=== PATIENT | male | born 1985 | race Caucasian/White ===

== ENCOUNTER 2019-02-15 01:03 | Emergency (ER) | payer OTHER, SELFPAY ==
[2018-03-21 10:16] VITALS: BMI 28.1
[2019-02-15 01:04] VITALS: BP 102/67; PULSE 106; RESP 18; TEMP 36.5; O2SAT 100; BMI 30.5
--- NOTE | 2019-02-15 01:07 | ED.DCSUM_ITS ---
History of Present Illness Chief Complaint: Nausea/Vomiting Informant: Patient, Significant Other - Abdominal Pain/Flank Pain Onset: Today Context: Sudden Onset Timing: Continuous Quality: Cramping Location: Diffuse - Nausea/Vomiting/Emesis GI Symptom: Nausea, Vomiting Onset: Today Quality: Nonbilious. Negative for: Blood streaks, Coffee ground, Hematemesis - Diarrhea/Melena/Hematochezia GI Symptom: Diarrhea Onset: Today Stool Quality: Negative for: Black, Maroon, ILDA per rectum Narrative: Patient is a 34-year-old male with no significant past medical history presenting with vomiting and diarrhea. Patient as well as his , children and [id number] all came down with GI symptoms tonight. They all had cheeseburger soup earlier this evening. Patient seemed to have the most severe symptoms. Has had multiple episodes of vomiting. He denies any blood in his vomit. He has had associated diarrhea. Patient states he has cramping abdominal pain before he vomits but denies any other pain. He currently denies any abdominal pain. States he feels very weak. 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 Patient not take anything for symptoms prior to arrival. He denies any other complaints at this time. He states he was feeling well earlier today. Past Medical History - Allergies and Home Meds Allergies/Adverse Reactions: Allergies No Known Allergies Allergy (Unverified 02/15/19 01:13) Primary Care Physician: Carmelo Cazares DO [Primary Care Provider] - Past Medical History: None Surgical History: no surgical history Lives: Spouse/ Significant Other, With Family Smoking Status: Never smoker Alcohol: None Drugs: None Review of Systems General: Denies: Chills, Fever, Sweats Eyes: Denies: Visual changes - bilaterally, Diplopia ENT: Denies: Rhinorrhea, Sore throat Cardiovascular: Denies: Chest pain, Palpitations Respiratory: Denies: Dyspnea, Cough, Dyspnea on exertion Gastrointestinal: Reports: Abdominal pain, Nausea, Vomiting, Diarrhea. Denies: Melena, Hematochezia Genitourinary: Denies: Dysuria, Hematuria, Frequency Musculoskeletal: Denies: Back pain, Extremity Pain Skin: Denies: Rash, Wounds Neurological: Denies: Headache, Weakness, Numbness Physical Exam Vital Signs/Narrative: Vital Signs Temp Pulse Resp BP Pulse Ox 02/15/19 01:04 97.7 F L 106 H 18 102/67 100 Inital Vital Signs reviewed: Yes General: Well nourished, Well developed, No Acute Distress Head: Normocephalic, Atraumatic Eyes: Perrl, EOMI ENT: Moist mucous membranes, No rhinorrhea Neck: Supple, Nontender Cardiovascular: Regular rate, Regular rhythm, No murmurs Respiratory: No distress, CTA bilaterally, Chest nontender Abdomen: Soft, Nontender, Nondistended, Normal bowel sounds. Negative for: Guarding, Rebound tenderness Back: Nontender, Normal Inspection Extremities: Nontender, No edema Skin: Normal color, No rash Neurological: Alert, Oriented x3, Cranial nerves II-XII grossly intact, Normal Strength, Normal Sensation Psychological: Normal affect, Normal Mood Diagnostic/Tx/Re-eval Laboratory Data 02/15/19 02/15/19 01:05 01:05 WBC 22.6 H RBC 5.61 Hgb 16.7 H Hct 48.7 MCV 86.8 MCH 29.8 MCHC 34.3 RDW Std Deviation 38.0 RDW Coeff of Luis 11.9 Plt Count 290 MPV 8.7 Immature Gran % (Auto) 0.500 Neut % (Auto) 88.9 H Lymph % (Auto) 4.2 L [place] % (Auto) 5.9 Eos % (Auto) 0.1 Baso % (Auto) 0.4 Absolute Neuts (auto) 20.1 H Absolute Lymphs (auto) 0.94 Nucleated RBC % 0 Sodium 138 Potassium 4.2 Chloride 104 Carbon Dioxide 25.0 Anion Gap 9 BUN 21 H Creatinine 1.87 H Estim Creat Clear Calc 70.60 Est GFR (MDRD) Af Amer 53 L Est GFR (MDRD) Non-Af 44 L BUN/Creatinine Ratio 11.2 Glucose 162 H Calcium 10.3 H Total Bilirubin 0.40 AST 17 ALT 43 Alkaline Phosphatase 54 Total Protein 9.0 H Albumin 5.2 H Globulin 3.8 Albumin/Globulin Ratio 1.4 Lipase 127 - Medical Decision Making Patient evaluated for sudden onset of nausea, vomiting and diarrhea. His symptoms started as well as multiple family members. I suspect this may be food poisoning. Did check basic labs including CBC, CMP and lipase. Patient is treated symptomatically with IV fluids, Zofran and Pepcid. On reevaluation patient is feeling much better. Lab work is remarkable for leukocytosis as well as an elevated creatinine. Patient is given a second liter of fluids. I suspect this is all reactive from his acute dehydration and vomiting. Patient is counseled on this findings and need for follow-up. He is instructed to follow-up with his PCP next week for repeat BMP. Patient be discharged home with a course of Zofran. Patient is counseled on signs and symptoms requiring return to the emergency room. Patient verbalizes agreement and understand this plan. Patient discharged home in stable and improved condition. ED Disposition - Plan for ED Patient: Disposition: Home or Assisted Living Diagnosis: Nausea vomiting and diarrhea, Acute dehydration Instructions: FOOD POISONING or GASTROENTERITIS (6y-Adult) Prescriptions: Ondansetron [Zofran Odt] 4 mg PO Q8H PRN PRN #15 tab PRN Reason: Nausea Prescription Printed Referrals: Carmelo Cazares DO [Primary Care Provider] - Additional Instructions: I suspect you have food poisoning which caused her symptoms today. Your lab work did show an elevated white blood cell count as well as an elevated creatinine. I suspect this is all secondary to your vomiting and likely food poisoning. Please follow-up with your doctor next week for repeat blood work and to make sure the levels have normalized. Return to the emergency room if you have any worsening symptoms.
[2019-02-15 01:12] LABS: Absolute Lymphocyte Count 0.94 X10^3/uL (0.83-4.51); Absolute Neutrophil Count 20.1 X10^3/uL (2.0-7.7); Basophil% 0.4 % (0-1); Eosinophil# 0.02 X10^3/uL; Eosinophils% 0.1 % (0-5); Hematocrit 48.7 % (40-54); Hemoglobin 16.7 g/dL (13.0-16.5); Lymphocyte # 0.94 X10^3/ul (4.0); Lymphocyte % 4.2 % (19-41); Mean Corp Hgb Conc 34.3 g/dL (32-36); Mean Corpuscular Hgb 29.8 pg (27.0-32.0); Mean Corpuscular Volume 86.8 fL (80-94); Mean Platelet Vol. 8.7 fl (6.2-12.0); Monocyte# 1.33 X10^3/uL; Monocyte% 5.9 % (0-10); NRBC Flagged by Analyzer 0 % (0-5); Neutrophil # 20.12 X10^3/uL (2.7-7.7); Neutrophil % 88.9 % (47-70); POSITIVE DIFFERENTIAL YES; Platelet Count 290 K/mm3 (150-450); RBC Distribution Width CV 11.9 % (11.6-14.6); Red Blood Count 5.61 M/mm3 (4.6-6.2); White Blood Count 22.6 K/mm3 (4.4-11.0)
[2019-02-15 01:13] LABS: Differential Indicated SCAN CRITERIA MET
[2019-02-15] MEDS: 0.9% Normal Saline 1,000 ML 1000 ML IV (01:14)
[2019-02-15] MEDS: Famotidine 200 MG/20 ML MDV 20 MG in 0.9% Normal Saline (Pres. free 8 ML 300 MG IV (01:14)
[2019-02-15] MEDS: Ondansetron 4 MG/2 ML Vial IV (01:16)
[2019-02-15 01:32] LABS: ALB/GLOB Ratio 1.4 RATIO (0.9-2.4); AST(SGOT) 17 U/L (15-37); Alanine Aminotransfer ALT/SGPT 43 U/L (16-61); Albumin, Serum 5.2 g/dL (3.2-5.0); Alkaline Phosphatase 54 U/L (45-117); Anion Gap 9 (5-15); BUN 21 mg/dL (7-18); BUN/Creat Ratio 11.2 RATIO (10-20); Calcium,Total 10.3 mg/dL (8.5-10.1); Chloride 104 mmol/L (98-107); Creatinine, Serum 1.87 mg/dL (0.70-1.30); EST Glomerular Filtration Rate 44 mL/min (>60); Est Glom Filt Rate - Afr Amer 53 mL/min (>60); Globulin 3.8 g/dL (2.2-4.2); Glucose 162 mg/dL (74-106); Lipase 127 U/L (73-393); Potassium 4.2 mmol/L (3.5-5.1); Sodium Level 138 mmol/L (136-145)
[2019-02-15] MEDS: 0.9% Normal Saline 1,000 ML 999 ML IV (02:31)
[2019-02-15 02:34] VITALS: BP 117/64; PULSE 94; RESP 16; O2SAT 96
[2019-02-15 04:32] VITALS: BP 108/72; PULSE 91; RESP 18; O2SAT 99
== END 2019-02-15 04:33 | disposition home or self-care (01) ==
PROVIDERS: Emergency Provider Emergency Medicine; Family Provider Family Medicine; PCP Family Medicine
DX: R11.2 Nausea with vomiting, unspecified (principal); E86.0 Dehydration; R19.7 Diarrhea, unspecified
CPT/HCPCS: 80053; 83690; 85025; 96361; 96374; 99285; J7030; A4216; J2405; J3490

== ENCOUNTER → 2019-03-13 16:55 | Outpatient (CLI) | payer OTHER, SELFPAY ==
[2019-02-15 01:04] VITALS: BMI 30.5
[2019-03-13 17:53] LABS: Absolute Neutrophil Count 4.7 X10^3/uL (2.0-7.7); Basophil# 0.04 X10^3/uL; Basophil% 0.5 % (0-1); Eosinophils% 1.2 % (0-5); Hemoglobin 14.7 g/dL (13.0-16.5); Lymphocyte % 33.8 % (19-41); Mean Corp Hgb Conc 32.7 g/dL (32-36); Mean Corpuscular Hgb 29.3 pg (27.0-32.0); Mean Corpuscular Volume 89.6 fL (80-94); Mean Platelet Vol. 9.2 fl (6.2-12.0); Monocyte# 0.65 X10^3/uL; Monocyte% 7.9 % (0-10); NRBC Flagged by Analyzer 0 % (0-5); Neutrophil # 4.66 X10^3/uL (2.7-7.7); Neutrophil % 56.2 % (47-70); Platelet Count 300 K/mm3 (150-450); RBC Distribution Width SD 39.2 fl (35.1-43.9); Red Blood Count 5.02 M/mm3 (4.6-6.2); White Blood Count 8.3 K/mm3 (4.4-11.0)
[2019-03-13 18:59] LABS: ALB/GLOB Ratio 1.3 RATIO (0.9-2.4); AST(SGOT) 16 U/L (15-37); Alanine Aminotransfer ALT/SGPT 36 U/L (16-61); Albumin, Serum 4.4 g/dL (3.2-5.0); Alkaline Phosphatase 42 U/L (45-117); Anion Gap 5 (5-15); BUN 10 mg/dL (7-18); BUN/Creat Ratio 10.5 RATIO (10-20); Calcium,Total 9.3 mg/dL (8.5-10.1); Chloride 106 mmol/L (98-107); Creatinine, Serum 0.95 mg/dL (0.70-1.30); EST Glomerular Filtration Rate 95 mL/min (>60); Est Glom Filt Rate - Afr Amer 115 mL/min (>60); Globulin 3.4 g/dL (2.2-4.2); Glucose 82 mg/dL (74-106); Potassium 3.7 mmol/L (3.5-5.1); Protein, Total 7.8 g/dL (6.4-8.2); Sodium Level 140 mmol/L (136-145)
== END ==
PROVIDERS: Family Provider Family Medicine; PCP Family Medicine; Visit Provider Family Medicine
DX: N17.9 Acute kidney failure, unspecified (principal); D72.829 Elevated white blood cell count, unspecified
CPT/HCPCS: 36415; 80053; 85025

== ENCOUNTER → 2020-01-22 17:25 | Outpatient (CLI) | payer OTHER, SELFPAY | PROVIDERS: PCP Family Medicine; Referring Provider Family Medicine; Visit Provider Family Medicine | DX: Z20.828 Contact with and (suspected) exposure to other viral communicable diseases (principal) | CPT/HCPCS: 87635; C9803; U0003 ==

== ENCOUNTER → 2023-02-15 | Outpatient (CLI) | payer OTHER, SELFPAY ==
[2023-02-15 15:14] LABS: Absolute Lymphocyte Count 2.15 X10^3/uL (0.83-4.51); Absolute Neutrophil Count 5.4 X10^3/uL (2.0-7.7); Basophil# 0.05 X10^3/uL; Basophil% 0.6 % (0-1); Eosinophil# 0.07 X10^3/uL; Eosinophils% 0.8 % (0-5); Hematocrit 45.2 % (40-54); Hemoglobin 14.9 g/dL (13.0-16.5); Lymphocyte # 2.15 X10^3/ul (0.83-4.51); Lymphocyte % 25.7 % (19-41); Mean Corpuscular Hgb 29.4 pg (27.0-32.0); Mean Corpuscular Volume 89.2 fL (80-94); Mean Platelet Vol. 9.6 fl (6.2-12.0); Monocyte# 0.66 X10^3/uL; Monocyte% 7.9 % (0-10); NRBC Flagged by Analyzer 0 % (0-5); Neutrophil % 64.6 % (47-70); Platelet Count 321 K/mm3 (150-450); RBC Distribution Width CV 12.2 % (11.6-14.6); RBC Distribution Width SD 39.5 fl (35.1-43.9); Red Blood Count 5.07 M/mm3 (4.6-6.2); White Blood Count 8.4 K/mm3 (4.4-11.0)
[2023-02-15 15:53] LABS: ALB/GLOB Ratio 1.1 RATIO (0.9-2.4); AST(SGOT) 19 U/L (15-37); Alanine Aminotransfer ALT/SGPT 43 U/L (16-61); Alkaline Phosphatase 48 U/L (45-117); Anion Gap 6 (5-15); BUN 19 mg/dL (7-18); Chloride 108 mmol/L (98-107); Cholesterol 202 mg/dL (200); Creatinine, Serum 1.12 mg/dL (0.70-1.30); EST Glomerular Filtration Rate 77 mL/min (>60); Est Glom Filt Rate - Afr Amer 93 mL/min (>60); Globulin 3.5 g/dL (2.2-4.2); Glucose 106 mg/dL (74-106); High Density Lipoprotein 31 mg/dL; Potassium 4.8 mmol/L (3.5-5.1); Protein, Total 7.5 g/dL (6.4-8.2); Sodium Level 143 mmol/L (136-145); Triglycerides 559 mg/dL
== END | disposition home or self-care (01) ==
LOC: BFHLAB 13:38
PROVIDERS: PCP Family Medicine; Visit Provider Family Medicine
DX: Z00.00 Encounter for general adult medical examination without abnormal findings (principal)
CPT/HCPCS: 36415; 80053; 80061; 85025

== ENCOUNTER 2023-08-06 10:11 | Emergency (ER) | payer OTHER, SELFPAY ==
[2023-08-06 10:12] VITALS: BP 129/91; PULSE 99; RESP 18; TEMP 36.4; O2SAT 98; BMI 29.7
--- NOTE | 2023-08-06 11:42 | EDS_ITS ---
HPI <GIL Yeung - Last Filed: 08/06/23 15:15> History of Present Illness Chief Complaint: Other, Pain/Inj PFSH <GIL Yeung - Last Filed: 08/06/23 15:15> PFSH Medical History No active medical problems Home Medications ?Medication ?Instructions ?Recorded ?Last Taken ?Type NK 08/06/23 Unknown History ciprofloxacin HCl 500 mg tablet 500 mg PO BID #14 TABLETS 08/06/23 Unknown Rx metronidazole 500 mg tablet 500 mg PO BID 7 days #14 tabs 08/06/23 Unknown Rx oxycodone-acetaminophen 5 mg-325 1 tab PO Q8H PRN pain 3 days #10 08/06/23 Unknown Rx mg tablet (Percocet) tabs Allergy/AdvReac Type Severity Reaction Status Date / Time No Known Allergies Allergy Verified 07/01/23 08:11 Family History Father Heart disease Diabetes Hypertension Surgical History No significant past surgical history Social History Smoking Status: Never smoker alcohol intake: never substance use type: does not use ROS <GIL Yeung - Last Filed: 08/06/23 15:15> ROS ED Constitutional Constitutional ED: Denies chills or fever(s) Cardiovascular Cardiovascular: Denies chest pain Respiratory/Chest Respiratory/Chest: Denies dyspnea Gastrointestinal Gastrointestinal: Reports other Details: rectal pain ; Denies abdominal pain, constipation, diarrhea, melena, nausea or vomiting Genitourinary Genitourinary ED: Denies dysuria Integumentary Denies rash Neurologic Neurologic: Denies weakness EXAM <GIL Yeung - Last Filed: 08/06/23 15:15> Physical Exam Const Vital Signs: 08/06/23 10:12 08/06/23 14:57 Temperature 97.6 F L 98.5 F Temperature Source Temporal Pulse Rate 99 90 Respiratory Rate 18 18 Blood Pressure 129/91 H 131/76 H Blood Pressure Mean 103 94 Pulse Ox 98 94 Oxygen Delivery Method Room Air Positive well nourished, well developed and no apparent distress General Appearance ED: well developed HEENT Reports normocephalic and head/scalp atraumatic Mouth ED: Yes moist mucous membranes normal Eyes PERRL and EOMs intact bilaterally Neck full ROM and supple Chest Wall inspection of chest normal Resp normal respiratory effort and clear to auscultation bilaterally Cardio regular rate and regular rhythm GI soft to palpation, non-tender, non-distended and no masses GI Narrative: On STEPHANIE, there is what feels like a tender internal hemorrhoid at the 7 o'clock position, no external hemorrhoids, no signs of anal fissures Rectal Exam: normal sphincter tone Back/Spine normal ROM and normal to inspection Extremity normal to inspection and full ROM Neuro oriented x3, CN's II-XII intact bilaterally, moves all extremities, no focal motor deficits and no sensory deficits noted Sensorium / Orientation: awake and alert Psych mental status grossly normal and thought process normal Skin no rashes or lesions noted and no wounds <Dr. Jose Alfredo Badillo DO - Last Filed: 08/06/23 14:29> Physical Exam Const Vital Signs: 08/06/23 10:12 08/06/23 14:57 Temperature 97.6 F L 98.5 F Temperature Source Temporal Pulse Rate 99 90 Respiratory Rate 18 18 Blood Pressure 129/91 H 131/76 H Blood Pressure Mean 103 94 Pulse Ox 98 94 Oxygen Delivery Method Room Air MDM <GIL Yeung - Last Filed: 08/06/23 15:15> [facility] Narrative Medical decision making narrative: Patient presenting today with rectal pain he has had over the past week. He is nontoxic-appearing but does appear uncomfortable. Patient given IV morphine and Zofran for pain control. On rectal exam, no sign of external hemorrhoids or anal fissures, I do feel what feels like a internal hemorrhoid at the 7 o'clock position on STEPHANIE. CT of the pelvis with IV contrast obtained as well as labs. He does have a WBC of 15. CT scan and does show a perirectal abscess. I did consult Dr. Cortez, he did perform an I&D here in the ED. Patient given IV Zosyn and will be discharged home on ciprofloxacin and Flagyl. I will also given a prescription for Percocet. He is to change the packing daily. He has a follow-up with Dr. Cortez next Tuesday and will be discharged home in stable condition. He is comfortable with plan. Lab Data Attestation: I reviewed the patient's lab results. Lab results narrative: WBC 15 Labs: Laboratory Results - last 24 hr 08/06/23 12:05 WBC 15.0 H RBC 4.69 Hgb 13.6 Hct 41.9 MCV 89.3 MCH 29.0 MCHC 32.5 RDW Std Deviation 39.4 RDW Coeff of Luis 12.1 Plt Count 347 MPV 8.3 Immature Gran % (Auto) 0.400 Neut % (Auto) 74.4 H Lymph % (Auto) 16.4 L [place] % (Auto) 7.8 Eos % (Auto) 0.7 Baso % (Auto) 0.3 Absolute Neuts (auto) 11.2 H Absolute Lymphs (auto) 2.47 Nucleated RBC % 0 Sodium 139 Potassium 3.9 Chloride 107 Carbon Dioxide 29.0 Anion Gap 3 L BUN 14 Creatinine 1.05 Estim Creat Clear Calc 137.58 Est GFR (MDRD) Af Amer 100 Est GFR (MDRD) Non-Af 83 BUN/Creatinine Ratio 13.3 Glucose 99 Calcium 9.3 Radiography Diagnostic Testing: Clinical Impression(s) from Imaging Studies Pelvis CT 08/06/23 11:51 IMPRESSION: There are low-density fluid collections in the posterior perirectal region consistent with abscesses I cannot determine with any certainty if there is one interconnecting abscess or multiple. These could be more accurately evaluated with ultrasound and could be aspirated under sonographic guidance. There is no induration of the perirectal fat, no perirectal lymph nodes are noted. Small large bowel loops are unremarkable, normal appendix visualized No free pelvic fluid or air Electronically Signed: Wilber Baig MD at 13:07 EDT , <Dr. Jose Alfredo Badillo, DO - Last Filed: 08/06/23 14:29> [facility] Lab Data Labs: Laboratory Results - last 24 hr 08/06/23 12:05 WBC 15.0 H RBC 4.69 Hgb 13.6 Hct 41.9 MCV 89.3 MCH 29.0 MCHC 32.5 RDW Std Deviation 39.4 RDW Coeff of Luis 12.1 Plt Count 347 MPV 8.3 Immature Gran % (Auto) 0.400 Neut % (Auto) 74.4 H Lymph % (Auto) 16.4 L [place] % (Auto) 7.8 Eos % (Auto) 0.7 Baso % (Auto) 0.3 Absolute Neuts (auto) 11.2 H Absolute Lymphs (auto) 2.47 Nucleated RBC % 0 Sodium 139 Potassium 3.9 Chloride 107 Carbon Dioxide 29.0 Anion Gap 3 L BUN 14 Creatinine 1.05 Estim Creat Clear Calc 137.58 Est GFR (MDRD) Af Amer 100 Est GFR (MDRD) Non-Af 83 BUN/Creatinine Ratio 13.3 Glucose 99 Calcium 9.3 Radiography Diagnostic Testing: Clinical Impression(s) from Imaging Studies Pelvis CT 08/06/23 11:51 IMPRESSION: There are low-density fluid collections in the posterior perirectal region consistent with abscesses I cannot determine with any certainty if there is one interconnecting abscess or multiple. These could be more accurately evaluated with ultrasound and could be aspirated under sonographic guidance. There is no induration of the perirectal fat, no perirectal lymph nodes are noted. Small large bowel loops are unremarkable, normal appendix visualized No free pelvic fluid or air Electronically Signed: Wilber Baig MD at 13:07 EDT Reading Location ID and State: [facility] / [place] , Service support , Treatment and Re-Evaluation :: I have personally performed a face to face assessment of the patient and have reviewed the IZABEL Note. I performed a substantive portion of the visit including all aspects of the following. My arteaga findings include: History: Patient presents with rectal pain that has been getting worse over the past week. Patient states it is gradually getting worse. Patient describes as aching and throbbing. Patient states it is over the pelvic area and rectum. Patient states it is worse when he gets up to ambulate. Patient states it is better with a hot bath. Patient denies any fevers but admits to some subjective chills. Patient denies any discharge or drainage. Patient admits to some nausea but denies any vomiting. Exam: Vital signs are stable. Patient is afebrile. Patient is in no acute distress. Oral mucosa is pink and moist. Neck is supple. Trachea is midline. There is no JVD. Heart was regular rate and rhythm. Lungs are clear and equal bilaterally. Abdomen is soft. Bowel sounds are normal. There is no tenderness. Cranial nerves II through XII are intact. There are no focal motor or sensory deficits noted. Medical Decision Making: Differential diagnosis includes internal hemorrhoid, abscess, bowel obstruction, perforation. CBC will be obtained to assess for leukocytosis and anemia. Basic metabolic profile will be obtained to assess for electrolyte abnormality and renal function. CT scan of the pelvis will be obtained to assess for abscess, obstruction, perforation. CBC was reviewed. There is a leukocytosis of 15.0. The remainder is within normal limits. Basic metabolic profile was reviewed and was within normal limits. CT scan of the abdomen pelvis was obtained. There is an abscess in the perirectal area. There is no other acute abnormality noted. This was interpre arabella by the radiologist was also independently reviewed by myself. Dr. Cortez was in to evaluate the patient. He performed incision and drainage in the emergency department. Patient was given prescriptions for Cipro and Flagyl. Patient was given a prescription for a short course of Percocet. Patient was instructed to change the dressing and packing daily patient was instructed to follow-up with Dr. Cortez this week as scheduled. Patient understood and was agreeable with the plan. All questions were answered. Discharge Plan Triage Chief Complaint: Other, Pain/Inj ED Midlevel Provider: Elva Ribeiro ED Provider: Jose Alfredo Badillo Dx/Rx/DC Orders Clinical Impression: Abscess of rectum Instructions: ED ABSCESS Yeimy-Anal IandD Prescriptions: New oxycodone-acetaminophen [Percocet] 5-325 mg tablet 1 tab PO Q8H PRN (Reason: pain) 3 Days Qty: 10 0RF ciprofloxacin HCl 500 mg tablet 500 mg PO BID Qty: 14 0RF metronidazole 500 mg tablet 500 mg PO BID 7 Days Qty: 14 0RF No Action NK Primary Care Provider: Carmelo Cazares Referrals: Jay Cortez MD [Med Staff - Active Staff] - 5-7 Days Carmelo Cazares DO [Primary Care Provider] - Activity Restrictions/Additional Instructions: Change the packing daily, follow-up with Dr. Calabretta and return for any worsening of your symptoms. Print Language: Beninese Disposition Disposition: Home, Self Care Discharge Date/Time: 08/06/23 14:59
--- NOTE | 2023-08-06 11:51 | CT_ITS ---
STUDY: CT PELVIS WITH CONTRAST REASON FOR EXAM: Male, 38 years old. Rectal pain RADIATION DOSAGE (If Supplied By Facility): CTDIvol = ( 28.21 ) mGy, DLP = ( 1355.59 ) mGycm TECHNIQUE: Transaxial imaging of the pelvis was performed without oral contrast. IV 100mL Isovue-370 was administered intravenously. Multiplanar coronal and sagittal images were reformatted. Individualized dose optimization techniques were used for this CT. COMPARISON: None. FINDINGS: There are low-density peripherally enhancing fluid collections in the perirectal region consistent with perirectal abscess. I cannot determine if there is one 2 or 3 separate abscesses the largest collection is noted on axial image 64 measuring 2.5 x 1.4 x 1.8 cm. These could be more accurately evaluated and perhaps aspirated or drained with sonographic guidance. Normal urinary bladder. Normal visualized small intestine. Normal visualized colon. Appendix seen on coronal recon images 7 through 15 There is no pelvic fluid. There is no pelvic lymphadenopathy or mass lesion. Normal visualized pelvic arteries. Normal abdominal wall. Normal osseous structures. CT/Pelvis WITH IV Contrast IMPRESSION: There are low-density fluid collections in the posterior perirectal region consistent with abscesses I cannot determine with any certainty if there is one interconnecting abscess or multiple. These could be more accurately evaluated with ultrasound and could be aspirated under sonographic guidance. There is no induration of the perirectal fat, no perirectal lymph nodes are noted. Small large bowel loops are unremarkable, normal appendix visualized No free pelvic fluid or air Electronically Signed: Wilber Baig MD at 13:07 EDT ,
[2023-08-06 12:10] LABS: Absolute Lymphocyte Count 2.47 X10^3/uL (0.83-4.51); Absolute Neutrophil Count 11.2 X10^3/uL (2.0-7.7); Basophil# 0.05 X10^3/uL; Basophil% 0.3 % (0-1); Eosinophil# 0.11 X10^3/uL; Eosinophils% 0.7 % (0-5); Hematocrit 41.9 % (40-54); Hemoglobin 13.6 g/dL (13.0-16.5); Lymphocyte # 2.47 X10^3/ul (0.83-4.51); Lymphocyte % 16.4 % (19-41); Mean Corp Hgb Conc 32.5 g/dL (32-36); Mean Corpuscular Volume 89.3 fL (80-94); Mean Platelet Vol. 8.3 fl (6.2-12.0); Monocyte# 1.17 X10^3/uL; Monocyte% 7.8 % (0-10); NRBC Flagged by Analyzer 0 % (0-5); Neutrophil # 11.16 X10^3/uL (2.7-7.7); Neutrophil % 74.4 % (47-70); Platelet Count 347 K/mm3 (150-450); RBC Distribution Width CV 12.1 % (11.6-14.6); RBC Distribution Width SD 39.4 fl (35.1-43.9); Red Blood Count 4.69 M/mm3 (4.6-6.2)
[2023-08-06 12:22] LABS: Anion Gap 3 (5-15); BUN 14 mg/dL (7-18); BUN/Creat Ratio 13.3 RATIO (10-20); Calcium,Total 9.3 mg/dL (8.5-10.1); Chloride 107 mmol/L (98-107); Creatinine, Serum 1.05 mg/dL (0.70-1.30); EST Glomerular Filtration Rate 83 mL/min (>60); Est Glom Filt Rate - Afr Amer 100 mL/min (>60); Estimated Creatinine Clearance 137.58 ml/min; Glucose 99 mg/dL (74-106); Potassium 3.9 mmol/L (3.5-5.1); Sodium Level 139 mmol/L (136-145)
[2023-08-06] MEDS: Ondansetron 4 MG/2 ML Vial IV (13:49)
[2023-08-06] MEDS: Morphine 4 MG/ML Syringe IV (13:52)
[2023-08-06] MEDS: Lidocaine 1% /Epi 1:100 (20ml) 20 ML Vial INFILT (14:00)
[2023-08-06] MEDS: Piperacil/Tazobactam 4.5 GM in 0.9% Normal Saline (100mL MB+) 100 ML IV (14:06)
--- NOTE | 2023-08-06 14:32 | CON.PCM.SX_ITS ---
Assessment & Plan Assessment/Plan (1) Abscess of rectum: PLAN: The patient had CT scan which showed a perirectal abscess. I consented the patient for incision and drainage and numb the area. After draining and obtain cultures the patient was given an IV dose of antibiotics and will be sent home on oral antibiotics and follow-up with me later this week. Jay Cortez MD Pager: [facility] [address] [place] [address], [address] [place] [id number] Office: HPI Consult Data Date of Consult: 08/06/23 HPI Narrative HPI Narrative: LIBBY WOODS, is a 38 M who presents with rectal pain. The patient reports he has been having pain for about a week. He said last night it got much worse. He denies fevers or chills. He denies nausea or vomiting. [facility] Medical History No active medical problems Home Medications ?Medication ?Instructions ?Recorded ?Last Taken ?Type NK 08/06/23 Unknown History ciprofloxacin HCl 500 mg tablet 500 mg PO BID #14 TABLETS 08/06/23 Unknown Rx metronidazole 500 mg tablet 500 mg PO BID 7 days #14 tabs 08/06/23 Unknown Rx oxycodone-acetaminophen 5 mg-325 1 tab PO Q8H PRN pain 3 days #10 08/06/23 Unknown Rx mg tablet (Percocet) tabs Allergy/AdvReac Type Severity Reaction Status Date / Time No Known Allergies Allergy Verified 07/01/23 08:11 Family History Father Heart disease Diabetes Hypertension Surgical History No significant past surgical history Social History Smoking Status: Never smoker alcohol intake: never substance use type: does not use Physical Exam Const alert and oriented x3 HEENT normocephalic Eyes PERRL Chest inspection of chest normal Resp normal respiratory effort GI soft to palpation and non-tender GI Narrative: Perirectal abscess posteriorly Lab / Micro Data 08/06/23 12:05 08/06/23 12:05 Labs: Laboratory Results - last 24 hr 08/06/23 12:05: WBC 15.0 H, RBC 4.69, Hgb 13.6, Hct 41.9, MCV 89.3, MCH 29.0, MCHC 32.5, RDW Std Deviation 39.4, RDW Coeff of Luis 12.1, Plt Count 347, MPV 8.3, Immature Gran % (Auto) 0.400, Neut % (Auto) 74.4 H, Lymph % (Auto) 16.4 L, [place] % (Auto) 7.8, Eos % (Auto) 0.7, Baso % (Auto) 0.3, Absolute Neuts (auto) 11.2 H, Absolute Lymphs (auto) 2.47, Nucleated RBC % 0, Sodium 139, Potassium 3.9, Chloride 107, Carbon Dioxide 29.0, Anion Gap 3 L, BUN 14, Creatinine 1.05, Estim Creat Clear Calc 137.58, Est GFR (MDRD) Af Amer 100, Est GFR (MDRD) Non-Af 83, BUN/Creatinine Ratio 13.3, Glucose 99, Calcium 9.3 Imaging Radiology Impression Pelvis CT 08/06/23 11:51 IMPRESSION: There are low-density fluid collections in the posterior perirectal region consistent with abscesses I cannot determine with any certainty if there is one interconnecting abscess or multiple. These could be more accurately evaluated with ultrasound and could be aspirated under sonographic guidance. There is no induration of the perirectal fat, no perirectal lymph nodes are noted. Small large bowel loops are unremarkable, normal appendix visualized No free pelvic fluid or air Electronically Signed: Wilber Baig MD at 13:07 EDT ,
--- NOTE | 2023-08-06 14:33 | PCM.OPRPT ---
Report of Operation Date of Procedure: 08/06/23 Pre-Operative Diagnosis: Perirectal abscess Post-Operative Diagnosis: Same Surgery/Procedure Performed:: Incision and drainage of perirectal abscess with packing Estimated Blood Loss (mL): 5 Description of Procedure: The patient was placed on the side and given morphine for pain control. Next the area in the perineum just posterior to the anus was prepped and draped. Local anesthetic was injected under the skin and then a small kofi was made with a scalpel. This was deepened to the abscess cavity which was also sharply incised. There was purulent drainage which was cultured. Next the area was packed with quarter inch iodoform gauze dressing was applied.
--- NOTE | 2023-08-06 14:56 | ED.RN ---
[id number] pt signed consent for bedside i&d per dr. kilpatrick. pt given morphine pre proceedure. at bedside. incision with mod puss and cultures sent. pt felipe fair. packing remains and covered with abd
[2023-08-06 14:57] VITALS: BP 131/76; PULSE 90; RESP 18; TEMP 36.9; O2SAT 94
== END 2023-08-06 14:59 | disposition home or self-care (01) ==
PROVIDERS: Physician Assistant; Emergency Provider Emergency Medicine; PCP Family Medicine; Visit Provider Emergency Medicine
DX: K61.1 Rectal abscess (principal)
CPT/HCPCS: 46040; 72193; 80048; 85025; 87070; 87075; 87077; 87186; 87205; 96365; 96375; 99283; J7040; Q9967; A4216; J2405

== ENCOUNTER → 2024-11-09 | Outpatient (CLI) | payer OTHER, SELFPAY ==
[2024-11-09 09:48] LABS: Hematocrit 44.8 % (40-54); Hemoglobin 15.1 g/dL (13.0-16.5); Immature Granulocytes Count 0.040 X10^3/uL (0.0-0.0); Mean Corp Hgb Conc 33.7 g/dL (32-36); Mean Corpuscular Volume 87.8 fL (80-94); Mean Platelet Vol. 8.7 fl (6.2-12.0); NRBC Flagged by Analyzer 0 % (0-5); Platelet Count 326 K/mm3 (150-450); RBC Distribution Width CV 11.8 % (11.6-14.6); RBC Distribution Width SD 37.9 fl (35.1-43.9); Red Blood Count 5.10 M/mm3 (4.6-6.2); White Blood Count 8.2 K/mm3 (4.4-11.0)
[2024-11-09 10:23] LABS: AST(SGOT) 21 U/L (<=37); Alanine Aminotransfer ALT/SGPT 20 U/L (<=46); Albumin, Serum 4.7 g/dL (3.5-5.0); Alkaline Phosphatase 52 U/L (40-129); Anion Gap 11 (5-15); BUN 15 mg/dL (4-19); BUN/Creat Ratio 18.7 RATIO (10-20); Calcium,Total 9.1 mg/dL (7.6-11.0); Carbon Dioxide 24.7 mmol/L (21.0-32.0); Chloride 103 mmol/L (98-108); Globulin 3.0 g/dL (2.2-4.2); Glucose 98 mg/dL (70-99); Potassium 4.0 mmol/L (3.3-5.1)
[2024-11-09 10:29] LABS: AST(SGOT) 22 U/L (<=37); Alanine Aminotransfer ALT/SGPT 23 U/L (<=46); Albumin, Serum 4.7 g/dL (3.5-5.0); Alkaline Phosphatase 51 U/L (40-129); Anion Gap 11 (5-15); BUN 15 mg/dL (4-19); BUN/Creat Ratio 17.5 RATIO (10-20); Calcium,Total 9.1 mg/dL (7.6-11.0); Carbon Dioxide 25.0 mmol/L (21.0-32.0); Chloride 103 mmol/L (98-108); Globulin 3.0 g/dL (2.2-4.2); Glucose 100 mg/dL (70-99); Potassium 4.0 mmol/L (3.3-5.1)
[2024-11-09 10:58] LABS: Cholesterol 194 mg/dL (<=200); Low Density Lipoprotein Calc. 104 mg/dL; Triglycerides 292 mg/dL; Very Low Density Lipoprotein 58 mg/dL (5-40); cholesterol:hdl ratio screen 6.10
[2024-11-09 10:58] LABS: CRP 4.85 mg/L (0.0-3.0); LDH 227 U/L (87-241)
[2024-11-13 01:07] LABS: Anti-Chromatin <0.2 AI (0.0-0.9); Anti-Jo <0.2 AI (0.0-0.9); Anti-dsDNA Ab <1 IU/mL (0-9); Egg, Whole <0.10 kU/L (Class 0); Mussels <0.10 kU/L (Class 0); SJOGREN'S Anti-SS-A test < 0.2 AI (0.0-0.9); SJOGREN'S Anti-SS-B test < 0.2 AI (0.0-0.9)
[2024-11-15 10:08] LABS: ACCA 9 units (0-90); ALCA 4 units (0-60); AMCA 28 units (0-100); Cytoplasmic Ab (C-ANCA) <1:20 titer (Neg:<1:20); Immunoglobulin A 132 mg/dL (90-386); Immunoglobulin G 1126 mg/dL (603-1613); Immunoglobulin M 50 mg/dL (20-172); Perinuclear Ab (P-ANCA) <1:20 titer (Neg:<1:20); QNTFERON TB Mitogen Value > 10.00 IU/mL (.); QNTFERON TB Nil Value 0.04 IU/mL (.); QNTFERON TB1+ Ag Value 0.10 IU/mL (.); QNTFERON TB2+ Ag Value 0.11 IU/mL (.); QNTIFERON TB Positive Criteria Negative (Negative)
== END | disposition home or self-care (01) ==
PROVIDERS: PCP Family Medicine; Referring Provider Family Medicine; Visit Provider Internal Medicine Gastroenterology
DX: Z00.00 Encounter for general adult medical examination without abnormal findings (principal); R19.7 Diarrhea, unspecified
CPT/HCPCS: 36415; 80053; 80061; 82784; 82785; 83516; 83615; 84443; 85025; 85652; 86003; 86005; 86036; 86037; 86140; 86225; 86235; 86255; 86480; 86671

== ENCOUNTER → 2024-12-01 | Outpatient (CLI) | payer OTHER, SELFPAY ==
--- OUTSIDE RECORDS SUMMARY | 2024-12-01 08:31 | XMS RPT_ITS | CCD ---
Author Organization [facility] Care Team Providers Care Clinical Rehab Specialist Name Role Phone Linda Cazares DO Primary Care Provider JANESSA, SAURABH Attending LINDA Villa A Primary Care Unavailable JAY ALLRED Referring Unavailabl e BRANDSTETTER, SAURABH Admitting Unavailabl e BRANDSTETTER, SAURABH Attending Unavailabl e ASHANTISTFIORELLAR, SAURABH Referring Unavailabl e MARQUEZ, LINDA A Primary Care Unavailable BRANDSTETTER, SAURABH Admitting Unavailabl e BRANDSTETTER, SAURABH Attending Unavailpatsy e MARQUEZ, LINDA A Primary Care Unavailable BRANDSTFIORELLAR, SAURABH Attending Unavailpatsy e MARQUEZ, LINDA A Primary Care Unavailable BRANDSTFIORELLAR, SAURABH Attending Unavailpasty CAZARES, LINDA A Primary Care Unavailable MARQUEZ, LINDA A Primary Care Unavailable BRANDSTETTER, SAURABH Attending Unavailpatsy CAZARES, LINDA A Primary Care Unavailable MarquezDr. Linda carl DO Primary Care Provider [phone] Dr. Linda Cazares DO Referring Provider [phone] Jaquan FIEN Attending Provider Linda Cazares Primary Care Unavailable Jaquan Flores Attending Unavailable Linda Cazares Primary Care Unavailable Linda Cazares Referring Unavailable Jaquan Flores Attending Unavailable Linda Cazraes Primary Care Unavailable Linda Cazares Referring Unavailable Jaquan Flores Attending Unavailable Dr. Linda Cazares DO Primary Care Physician Dr. Jaquan Flores DO Attending Physician Medications Current Medications Medication Drug Class(es) Dates Sig (Normalized) Sig (Original) acetaminophen 300 mg / codeine phosphate 30 mg oral tablet (9 sources) Opioid Agonist Start: 12-06-2014 take 1 tablet by mouth every six hours as needed acetaminophen-codei ne (TYLENOL-CODEINE #3) 300-30 mg per tablet Take 1 tablet by mouth every 6 hours as needed. 10 tablet 0 12/06/2014 Active Docusate (5 sources) docusate sodium (COLACE ORAL) Take by mouth. Active LORazepam 1 mg oral tablet (9 sources) Benzodiazepine Start: 10-11-2014 take 2 tablets by mouth every hour LORazepam (ATIVAN) 1 mg tablet Indications: Sterilization Take 2 tablets by mouth as directed. 1 HOUR PRIOR TO PROCEDURE 2 tablet 0 10/11/2014 Active [place] (Nk) (2 sources) Start: 08-06-2023 [place] (Nk) Active August 06, 2023 12:00am Completed/Discontinued Medications Medication Drug Class(es) Dates Sig (Normalized) Sig (Original) acetaminophen 325 mg / oxyCODONE hydrochloride 5 mg oral tablet (2 sources) Opioid Agonist Start: 08-06-2023 End: 08-12-2023 Oxycodone-Acetamin ophen (Percocet) 5-325 mg tablet Discontinued 1 {tbl} PO Q8H as needed for pain 10 3 0 August 06, 2023 August 12, 2023 2:11pm Abscess of rectum Rectal abscess amoxicillin 500 mg oral capsule (2 sources) Penicillin-class Antibacterial Start: 07-01-2023 End: 07-11-2023 take 1 capsule by mouth twice daily Amoxicillin 500 mg capsule Discontinued 500 mg PO TWICE A DAY 20 10 July 01, 2023 12:00am July 10, 2023 12:00am July 11, 2023 12:06am ciprofloxacin 500 mg oral tablet (6 sources) Quinolone Antimicrobial Start: 08-06-2023 End: 11-09-2024 take 1 tablet by mouth twice daily Ciprofloxacin Hcl 500 mg tablet Discontinued 500 mg PO TWICE A DAY November 07, 2023 8:34am November 09, 2024 7:36am metroNIDAZOLE 500 mg oral tablet (6 sources) Nitroimidazole Antimicrobial Start: 11-07-2023 End: 11-17-2023 take 1 tablet by mouth three times daily Metronidazole 500 mg tablet Discontinued 500 mg PO THREE TIMES A DAY 30 10 November 07, 2023 8:35am November 16, 2023 12:00am November 17, 2023 12:05am Start: 08-06-2023 End: 11-07-2023 take 1 tablet by mouth twice daily Metronidazole 500 mg tablet Discontinued 500 mg PO TWICE A DAY 14 7 0 September 26, 2023 2:43pm November 07, 2023 8:36am ondansetron 4 mg disintegrating oral tablet (3 sources) Serotonin-3 Receptor Antagonist Start: 02-15-2019 End: 07-01-2023 take 1 tablet by mouth every eight hours as needed for nausea Ondansetron 4 MG tablet Discontinued 4 mg PO EVERY 8 HOURS NEEDED as needed for Nausea February 15, 2019 1:00am July 01, 2023 8:11am Problems Active Problems Problem Classification Problem Date Documented Da te Episodic/Chronic Anal and rectal conditions (13 sources) Anal fistula; Translations: [Anal fistula] Onset: 12-27-2023 12-09-2023 Episodic Fluid and electrolyte disorders (3 sources) Dehydration; Translations: [Dehydration] 02-16-2019 Episodic Nausea and vomiting (3 sources) Nausea, vomiting and diarrhea; Translations: [Nausea with vomiting, unspecified] 02-16-2019 Episodic Other ear and sense organ disorders (2 sources) Impacted cerumen; Translations: [Impacted cerumen, left ear] 03-21-2018 Episodic Other ear and sense organ disorders (1 source) Impacted cerumen in left ear; Translations: [Impacted cerumen, left ear] 08-12-2023 Episodic Other gastrointestinal disorders (4 sources) Diarrhea; Translations: [Diarrhea, unspecified] 11-09-2024 Episodic Other gastrointestinal disorders (1 source) Diarrhea, unspecified; Translations: [Diarrhea, unspecified] Onset: 11-09-2024 Episodic Other upper respiratory infections (2 sources) Streptococcal sore throat; Translations: [Streptococcal pharyngitis] 07-01-2023 Episodic Unclassified (1 source) Established Patient Onset: 06-15-2024 Unclassified (2 sources) Patient condition finding 07-01-2023 Past or Other Problems Problem Classification Problem Date Documented Da te Episodic/Chronic Contraceptive and procreative management (9 sources) Patient encounter status; Translations: [Encounter for sterilization] Onset: 10-11-2014 12-06-2014 Episodic Results Test Name Value Interpretation Reference Range Facility SHANI 11-15-2024 Atypical pANCA <1:20 Normal Neg:<1:20 [facility] Comment on above: Result Comment: The atypical pANCA pattern has been observed in a significant percentage of patients with ulcerative colitis, primary sclerosing cholangitis and autoimmune hepatitis. Performed at: [facility] [address] [id number] Classroom Coordinator: Derrick Duran PhD, Phone: [phone] Performed at: [facility] [address] [id number] Classroom Coordinator: Luis Daniel Castillo MD, Phone: [phone] Performed By: #### L 3410.2400, L3300.1200, L500.4050, L501.6710, L3200.1100, L101.9900, L2100.0000, L5500.0550, L504.2610, L3100.5440, L100.0100, L3400.8000, L501.9520 #### [facility] [address] [facility] [place], [place], [id number] Cytoplasmic Ab <1:20 Normal Neg:<1:20 [facility] Comment on above: Performed By: #### L 3410.2400, L3300.1200, L500.4050, L501.6710, L3200.1100, L101.9900, L2100.0000, L5500.0550, L504.2610, L3100.5440, L100.0100, L3400.8000, L501.9520 #### [facility] [address] [facility] [place], [place], [id number] Perinuclear Ab. <1:20 Normal Neg:<1:20 [facility] Comment on above: Result Comment: The presence of positive fluorescence exhibiting P-ANCA or C-ANCA patterns alone is not specific for the diagnosis of Elvie's Granulomatosis (WG) or microscopic polyangiitis. Decisions about treatment should not be based solely on ANCA IFA results. The International ANCA Group Consensus recommends follow up testing of positive sera with both NJ- 3 and MPO-ANCA enzyme immunoassays. As many as 5% serum samples are positive only by EIA. Ref. AM J Clin Pathol 1999;111:507-513. Performed By: #### L 3410.2400, L3300.1200, L500.4050, L501.6710, L3200.1100, L101.9900, L2100.0000, L5500.0550, L504.2610, L3100.5440, L100.0100, L3400.8000, L501.9520 #### [facility] [address] [place], [place], [id number] Celiac Disease Profileon ENDOMYSIAL IGA Negative Normal Negative [facility] Comment on above: Performed By: #### L 3410.2400, L3300.1200, L500.4050, L501.6710, L3200.1100, L101.9900, L2100.0000, L5500.0550, L504.2610, L3100.5440, L100.0100, L3400.8000, L501.9520 #### [facility] [address] [place], [address] tTG IGA <2 Normal 0-3 [facility] Comment on above: Result Comment: Nega tive 0 - 3 Weak Positive 4 - 10 Positive >10 Tissue Transglutaminase (tTG) has been identified as the endomysial antigen. Studies have demonstr- ated that endomysial IgA antibodies have over 99% specificity for gluten sensitive enteropathy. Performed By: #### L 3410.2400, L3300.1200, L500.4050, L501.6710, L3200.1100, L101.9900, L2100.0000, L5500.0550, L504.2610, L3100.5440, L100.0100, L3400.8000, L501.9520 #### [facility] [address] [place], [address] Immunoglobulins G/A/M/Bj IMMUNOGLOB A QN 132 mg/dL Normal 90-386 [facility] Comment on above: Order Comment: Y Performed By: #### L 3410.2400, L3300.1200, L500.4050, L501.6710, L3200.1100, L101.9900, L2100.0000, L5500.0550, L504.2610, L3100.5440, L100.0100, L3400.8000, L501.9520 #### [facility] [address] [place], [address] IMMUNOGLOB E QN 14 IU/mL Normal 6-495 [facility] Comment on above: Order Comment: Y Performed By: #### L 3410.2400, L3300.1200, L500.4050, L501.6710, L3200.1100, L101.9900, L2100.0000, L5500.0550, L504.2610, L3100.5440, L100.0100, L3400.8000, L501.9520 #### [facility] [address] [place], [address] IMMUNOGLOB G QN 1126 mg/dL Normal 603-1613 [facility] Comment on above: Order Comment: Y Performed By: #### L 3410.2400, L3300.1200, L500.4050, L501.6710, L3200.1100, L101.9900, L2100.0000, L5500.0550, L504.2610, L3100.5440, L100.0100, L3400.8000, L501.9520 #### [facility] [address] [place], [place], [address] [phone] IMMUNOGLOB M QN 50 mg/dL Normal 20-172 [facility] Comment on above: Order Comment: Y Performed By: #### L 3410.2400, L3300.1200, L500.4050, L501.6710, L3200.1100, L101.9900, L2100.0000, L5500.0550, L504.2610, L3100.5440, L100.0100, L3400.8000, L501.9520 #### [facility] [address] [place], [place], [address] L2100.0000on 11-15-2024 ACCA 9 units Normal 0-90 [facility] Comment on above: Result Comment: Nega tive: <80 Equivocal: 80-90 Positive: >90 Performed By: #### L 3410.2400, L3300.1200, L500.4050, L501.6710, L3200.1100, L101.9900, L2100.0000, L5500.0550, L504.2610, L3100.5440, L100.0100, L3400.8000, L501.9520 #### [facility] [address] [place], [place], [address] ALCA 4 units Normal 0-60 [facility] Comment on above: Result Comment: Nega tive:<55 Equivocal: 55-60 Positive: >60 Performed By: #### L 3410.2400, L3300.1200, L500.4050, L501.6710, L3200.1100, L101.9900, L2100.0000, L5500.0550, L504.2610, L3100.5440, L100.0100, L3400.8000, L501.9520 #### [facility] [address] [place], [place], [address] AMCA 28 units Normal 0-100 [facility] Comment on above: Result Comment: Nega tive: <90 Equivocal: 90-100 Positive: >100 This test was developed and its performance characteristics determined by [employer]. It has not been cleared or approved by the Food and Drug Administration. The FDA has determined that such clearance or approval is not necessary. Performed By: #### L 3410.2400, L3300.1200, L500.4050, L501.6710, L3200.1100, L101.9900, L2100.0000, L5500.0550, L504.2610, L3100.5440, L100.0100, L3400.8000, L501.9520 #### [facility] [address] [place], [place], [id number] Atypical pANCA Negative Normal Negative [facility] Comment on above: Performed By: #### L 3410.2400, L3300.1200, L500.4050, L501.6710, L3200.1100, L101.9900, L2100.0000, L5500.0550, L504.2610, L3100.5440, L100.0100, L3400.8000, L501.9520 #### [facility] [address] [place], [place], [id number] COMMENT Comment Normal . [facility] Comment on above: Result Comment: Radha eddie is not suggestive of Inflammatory Bowel Disease Performed By: #### L 3410.2400, L3300.1200, L500.4050, L501.6710, L3200.1100, L101.9900, L2100.0000, L5500.0550, L504.2610, L3100.5440, L100.0100, L3400.8000, L501.9520 #### [facility] [address] [place], [address] Erma 12 units Normal 0-50 [facility] Comment on above: Result Comment: Nega tive: <45 Equivocal: 45-50 Positive: >50 Performed By: #### L 3410.2400, L3300.1200, L500.4050, L501.6710, L3200.1100, L101.9900, L2100.0000, L5500.0550, L504.2610, L3100.5440, L100.0100, L3400.8000, L501.9520 #### [facility] [address] [place], [address] Quantiferon TB-Gold+on 11-15 QFT MITOGEN RICKY > 10.00 Normal . [facility] Comment on above: Performed By: #### L 3410.2400, L3300.1200, L500.4050, L501.6710, L3200.1100, L101.9900, L2100.0000, L5500.0550, L504.2610, L3100.5440, L100.0100, L3400.8000, L501.9520 #### [facility] [address] [place], [place], [id number] (587) QFT NIL VALUE 0.04 IU/mL Normal . [facility] Comment on above: Performed By: #### L 3410.2400, L3300.1200, L500.4050, L501.6710, L3200.1100, L101.9900, L2100.0000, L5500.0550, L504.2610, L3100.5440, L100.0100, L3400.8000, L501.9520 #### [facility] [address] [place], [address] (426) QFT TB GOLD+ Comment Normal . [facility] Comment on above: Result Comment: Rigo tiFERON-TB Gold Plus is a qualitative indirect test for M tuberculosis infection (including disease) and is intended for use in conjunction with risk assessment, radiography, and other medical and diagnostic evaluations. The QuantiFERON-TB Gold Plus result is determined by subtracting the Nil value from either TB antigen (Ag) value. The Mitogen tube serves as a control for the test. Performed By: #### L 3410.2400, L3300.1200, L500.4050, L501.6710, L3200.1100, L101.9900, L2100.0000, L5500.0550, L504.2610, L3100.5440, L100.0100, L3400.8000, L501.9520 #### [facility] [address] [place], [address] QFT TB POS CRIT Negative Normal Negative [facility] Comment on above: Result Comment: No r esponse to M tuberculosis antigens detected. Infection with M tuberculosis is unlikely, but high risk individuals should be considered for additional testing (ATS/IDSA/CDC Clinical Practice Guidelines, 2017). The reference range is an Antigen minus Nil result of <0.35 IU/mL. The specimen received for QuantiFERON testing was incubated by the ordering institution. Specific procedures outlined in our Directory of Services and in the package insert for the QuantiFERON Gold (In Tube) test must be followed to enable for proper stimulation of cells for the production of interferon gamma. Chemiluminescence immunoassay methodology Performed By: #### L 3410.2400, L3300.1200, L500.4050, L501.6710, L3200.1100, L101.9900, L2100.0000, L5500.0550, L504.2610, L3100.5440, L100.0100, L3400.8000, L501.9520 #### [facility] [address] [place], [address] QFT TB1+ AG RICKY 0.10 IU/mL Normal . [facility] Comment on above: Performed By: #### L 3410.2400, L3300.1200, L500.4050, L501.6710, L3200.1100, L101.9900, L2100.0000, L5500.0550, L504.2610, L3100.5440, L100.0100, L3400.8000, L501.9520 #### [facility] [address] [place], [address] QFT TB2+ AG RICKY 0.11 IU/mL Normal . [facility] Comment on above: Performed By: #### L 3410.2400, L3300.1200, L500.4050, L501.6710, L3200.1100, L101.9900, L2100.0000, L5500.0550, L504.2610, L3100.5440, L100.0100, L3400.8000, L501.9520 #### [facility] [address] [place], [address] AMELIE Comprehensive Panelon ANTI-DNA (DS)AB <1 Normal 0-9 [facility] Comment on above: Result Comment: Nega tive <5 Equivocal 5 - 9 Positive >9 Performed By: #### L 3410.2400, L3300.1200, L500.4050, L501.6710, L3200.1100, L101.9900, L2100.0000, L5500.0550, L504.2610, L3100.5440, L100.0100, L3400.8000, L501.9520 #### [facility] [address] [place], [place], [address] ANTI-SS-A < 0.2 Normal 0.0-0.9 [facility] Comment on above: Performed By: #### L 3410.2400, L3300.1200, L500.4050, L501.6710, L3200.1100, L101.9900, L2100.0000, L5500.0550, L504.2610, L3100.5440, L100.0100, L3400.8000, L501.9520 #### [facility] [place], [place], [address] ANTI-SS-B < 0.2 Normal 0.0-0.9 [facility] Comment on above: Performed By: #### L 3410.2400, L3300.1200, L500.4050, L501.6710, L3200.1100, L101.9900, L2100.0000, L5500.0550, L504.2610, L3100.5440, L100.0100, L3400.8000, L501.9520 #### [facility] [address] [place], [place], [id number] Allergen, Food Profile 1411-13-2024 BEEF <0.10 Normal Class 0 [facility] Comment on above: Performed By: #### L 3410.2400, L3300.1200, L500.4050, L501.6710, L3200.1100, L101.9900, L2100.0000, L5500.0550, L504.2610, L3100.5440, L100.0100, L3400.8000, L501.9520 #### [facility] [address] [place], [place], [id number] CHOCOLATE <0.10 Normal Class 0 [facility] Comment on above: Performed By: #### L 3410.2400, L3300.1200, L500.4050, L501.6710, L3200.1100, L101.9900, L2100.0000, L5500.0550, L504.2610, L3100.5440, L100.0100, L3400.8000, L501.9520 #### [facility] [address] [place], [place], [address] CODFISH <0.10 Normal Class 0 [facility] Comment on above: Performed By: #### L 3410.2400, L3300.1200, L500.4050, L501.6710, L3200.1100, L101.9900, L2100.0000, L5500.0550, L504.2610, L3100.5440, L100.0100, L3400.8000, L501.9520 #### [facility] [address] [place], [place], [id number] COMMENT Comment Normal . [facility] Comment on above: Result Comment: Talha aragon of Specific IgE Class Description of Class ----- < 0.10 0 Negative 0.10 - 0.31 0/I Equivocal/Low 0.32 - 0.55 I Low 0.56 - 1.40 II Moderate 1.41 - 3.90 III High 3.91 - 19.00 IV Very High 19.01 - 100.00 V Very High >100.00 Very High Performed By: #### L 3410.2400, L3300.1200, L500.4050, L501.6710, L3200.1100, L101.9900, L2100.0000, L5500.0550, L504.2610, L3100.5440, L100.0100, L3400.8000, L501.9520 #### [facility] [address] [place], [place], [id number] CORN <0.10 Normal Class 0 [facility] Comment on above: Performed By: #### L 3410.2400, L3300.1200, L500.4050, L501.6710, L3200.1100, L101.9900, L2100.0000, L5500.0550, L504.2610, L3100.5440, L100.0100, L3400.8000, L501.9520 #### [facility] [address] [place], [place], [id number] EGG, WHOLE <0.10 Normal Class 0 [facility] Comment on above: Result Comment: Perf ormed at: [address] [id number] Classroom Coordinator: Derrick Duran PhD, Phone: [phone] Performed at: [facility] [address] [id number] Classroom Coordinator: Luis Daniel Castillo MD, Phone: [phone] Performed By: #### L 3410.2400, L3300.1200, L500.4050, L501.6710, L3200.1100, L101.9900, L2100.0000, L5500.0550, L504.2610, L3100.5440, L100.0100, L3400.8000, L501.9520 #### [facility] [address] [place], [place], [address] MILK (COW) <0.10 Normal Class 0 [facility] Comment on above: Performed By: #### L 3410.2400, L3300.1200, L500.4050, L501.6710, L3200.1100, L101.9900, L2100.0000, L5500.0550, L504.2610, L3100.5440, L100.0100, L3400.8000, L501.9520 #### [facility] [address], [address] MUSSELS <0.10 Normal Class 0 [facility] Comment on above: Performed By: #### L 3410.2400, L3300.1200, L500.4050, L501.6710, L3200.1100, L101.9900, L2100.0000, L5500.0550, L504.2610, L3100.5440, L100.0100, L3400.8000, L501.9520 #### [facility] [address] [place], [place], [id number] PEANUT <0.10 Normal Class 0 [facility] Comment on above: Performed By: #### L 3410.2400, L3300.1200, L500.4050, L501.6710, L3200.1100, L101.9900, L2100.0000, L5500.0550, L504.2610, L3100.5440, L100.0100, L3400.8000, L501.9520 #### [facility] [address] [place], [place], [id number] PORK <0.10 Normal Class 0 [facility] Comment on above: Performed By: #### L 3410.2400, L3300.1200, L500.4050, L501.6710, L3200.1100, L101.9900, L2100.0000, L5500.0550, L504.2610, L3100.5440, L100.0100, L3400.8000, L501.9520 #### [facility] [address] [place], [place], [id number] SALMON <0.10 Normal Class 0 [facility] Comment on above: Performed By: #### L 3410.2400, L3300.1200, L500.4050, L501.6710, L3200.1100, L101.9900, L2100.0000, L5500.0550, L504.2610, L3100.5440, L100.0100, L3400.8000, L501.9520 #### [facility] [address] [facility] [place], [id number] SHRIMP <0.10 Normal Class 0 [facility] Comment on above: Performed By: #### L 3410.2400, L3300.1200, L500.4050, L501.6710, L3200.1100, L101.9900, L2100.0000, L5500.0550, L504.2610, L3100.5440, L100.0100, L3400.8000, L501.9520 #### [facility] [address] [place], [place], [address] SOYBEAN <0.10 Normal Class 0 [facility] Comment on above: Performed By: #### L 3410.2400, L3300.1200, L500.4050, L501.6710, L3200.1100, L101.9900, L2100.0000, L5500.0550, L504.2610, L3100.5440, L100.0100, L3400.8000, L501.9520 #### [facility] [address] [place], [place], [id number] TUNA <0.10 Normal Class 0 [facility] Comment on above: Performed By: #### L 3410.2400, L3300.1200, L500.4050, L501.6710, L3200.1100, L101.9900, L2100.0000, L5500.0550, L504.2610, L3100.5440, L100.0100, L3400.8000, L501.9520 #### [facility] [address] [place], [place], [id number] WHEAT <0.10 Normal Class 0 [facility] Comment on above: Performed By: #### L 3410.2400, L3300.1200, L500.4050, L501.6710, L3200.1100, L101.9900, L2100.0000, L5500.0550, L504.2610, L3100.5440, L100.0100, L3400.8000, L501.9520 #### [facility] [address], [address] Absolute lymphocyte countOrd ered By: Jaquan Flores on 11-09-2024 Lymphocytes Auto (Unsp spec) [#/Vol] 2.65 10*3/uL 0.83-4.51 [facility] Absolute neutrophil countOrd ered By: Jaquanmerry Flores on 11-09-2024 Neutrophils (Bld) [#/Vol] 4.6 10*3/uL 2.0-7.7 [facility] Anion gap in Serum or Plasma Ordered By: Jaquanshakila Flores on 11-09-2024 Anion gap [Moles/Vol] 11 mmol/L 5-15 [facility] Automated lymphocyte count a s percentage of total leukocytesOrdered By: Jaquan Flores on 11-09-2024 Lymphocytes/100 WBC Auto (Unsp spec) 32.3 % 19- [facility] BUN/creatinine ratioOrdered By: Jaquanmerry Flores on 11-09-2024 Urea nitrogen/Creatinine [Mass ratio] 17.5 mg/mg 10- [facility] Basophil percentageOrdered B y: Jaquan Flores on 11-09-2024 Basophils/100 WBC (Bld) 0.7 % 0-1 [facility] Bilirubin, totalOrdered By: Jaquanmerry Flores on 11-09-2024 Bilirubin [Mass/Vol] 0.47 mg/dL 0.00-1.30 [facility] CBC W/Diff, Automatedon 10-29 Absolute Lymph 2.65 X10 3/uL Normal 0.83-4.51 [facility] Comment on above: Performed By: #### L 3410.2400, L3300.1200, L500.4050, L501.6710, L3200.1100, L101.9900, L2100.0000, L5500.0550, L504.2610, L3100.5440, L100.0100, L3400.8000, L501.9520 #### [facility] [address] [place], [address] Absolute Neut 4.6 X10 3/uL Normal 2.0-7.7 [facility] Comment on above: Performed By: #### L 3410.2400, L3300.1200, L500.4050, L501.6710, L3200.1100, L101.9900, L2100.0000, L5500.0550, L504.2610, L3100.5440, L100.0100, L3400.8000, L501.9520 #### [facility] [address] [place], [address] Basophils/100 WBC (Bld) 0.7 % Normal 0-1 [facility] Comment on above: Performed By: #### L 3410.2400, L3300.1200, L500.4050, L501.6710, L3200.1100, L101.9900, L2100.0000, L5500.0550, L504.2610, L3100.5440, L100.0100, L3400.8000, L501.9520 #### [facility] [address] [place], [address] Eosinophils/100 WBC (Bld) 2.0 % Normal 0-5 [facility] Comment on above: Performed By: #### L 3410.2400, L3300.1200, L500.4050, L501.6710, L3200.1100, L101.9900, L2100.0000, L5500.0550, L504.2610, L3100.5440, L100.0100, L3400.8000, L501.9520 #### [facility] [address] [place], [place], [phone] (446) Erythrocyte distribution width (RBC) [Ratio] 11.8 % Normal 11.6-14.6 [facility] Comment on above: Performed By: #### L 3410.2400, L3300.1200, L500.4050, L501.6710, L3200.1100, L101.9900, L2100.0000, L5500.0550, L504.2610, L3100.5440, L100.0100, L3400.8000, L501.9520 #### [facility] [address] [place], [address] Hematocrit (Bld) [Volume fraction] 44.8 % Normal 40-54 [facility] Comment on above: Performed By: #### L 3410.2400, L3300.1200, L500.4050, L501.6710, L3200.1100, L101.9900, L2100.0000, L5500.0550, L504.2610, L3100.5440, L100.0100, L3400.8000, L501.9520 #### [facility] [address] [facility], [address] Hemoglobin (Bld) [Mass/Vol] 15.1 g/dL Normal 13.0-16. 5 [facility] Comment on above: Performed By: #### L 3410.2400, L3300.1200, L500.4050, L501.6710, L3200.1100, L101.9900, L2100.0000, L5500.0550, L504.2610, L3100.5440, L100.0100, L3400.8000, L501.9520 #### [facility] [address], [address] IG% 0.500 Normal 0.0-0.9 [facility] Comment on above: Result Comment: IG% - Immature Granulocytes (promyelocytes, myelocytes and metamyelocytes) > 1% indicates that a LEFT SHIFT is Present. Performed By: #### L 3410.2400, L3300.1200, L500.4050, L501.6710, L3200.1100, L101.9900, L2100.0000, L5500.0550, L504.2610, L3100.5440, L100.0100, L3400.8000, L501.9520 #### [facility] [address] [place], [address] Lymphocytes/100 WBC (Bld) 32.3 % Normal 19-41 [facility] Comment on above: Performed By: #### L 3410.2400, L3300.1200, L500.4050, L501.6710, L3200.1100, L101.9900, L2100.0000, L5500.0550, L504.2610, L3100.5440, L100.0100, L3400.8000, L501.9520 #### [facility] [address] [place], [address] MCH (RBC) [Entitic mass] 29.6 pg Normal 27.0-32.0 [facility] Comment on above: Performed By: #### L 3410.2400, L3300.1200, L500.4050, L501.6710, L3200.1100, L101.9900, L2100.0000, L5500.0550, L504.2610, L3100.5440, L100.0100, L3400.8000, L501.9520 #### [facility] [address] [place], [address] MCHC (RBC) [Mass/Vol] 33.7 g/dL Normal 32-36 [facility] Comment on above: Performed By: #### L 3410.2400, L3300.1200, L500.4050, L501.6710, L3200.1100, L101.9900, L2100.0000, L5500.0550, L504.2610, L3100.5440, L100.0100, L3400.8000, L501.9520 #### [facility] [address] [place], [address] MCV (RBC) [Entitic vol] 87.8 fL Normal 80-94 [facility] Comment on above: Performed By: #### L 3410.2400, L3300.1200, L500.4050, L501.6710, L3200.1100, L101.9900, L2100.0000, L5500.0550, L504.2610, L3100.5440, L100.0100, L3400.8000, L501.9520 #### [facility] [address] [place], [address] Monocytes/100 WBC (Bld) 8.2 % Normal 0-10 [facility] Comment on above: Performed By: #### L 3410.2400, L3300.1200, L500.4050, L501.6710, L3200.1100, L101.9900, L2100.0000, L5500.0550, L504.2610, L3100.5440, L100.0100, L3400.8000, L501.9520 #### [facility] [address] [facility] [facility] [address] [place], [address] Neutrophils/100 WBC (Bld) 56.3 % Normal 47-70 [facility] Comment on above: Performed By: #### L 3410.2400, L3300.1200, L500.4050, L501.6710, L3200.1100, L101.9900, L2100.0000, L5500.0550, L504.2610, L3100.5440, L100.0100, L3400.8000, L501.9520 #### [facility] [address] [place], [address] Nucleated RBC (Bld) [#/Vol] 0 10*3/uL Normal 0-5 [facility] Comment on above: Performed By: #### L 3410.2400, L3300.1200, L500.4050, L501.6710, L3200.1100, L101.9900, L2100.0000, L5500.0550, L504.2610, L3100.5440, L100.0100, L3400.8000, L501.9520 #### [facility] [address] [place], [address] Platelet mean volume (Bld) [Entitic vol] 8.7 fL Normal 6.2-12.0 [facility] Comment on above: Performed By: #### L 3410.2400, L3300.1200, L500.4050, L501.6710, L3200.1100, L101.9900, L2100.0000, L5500.0550, L504.2610, L3100.5440, L100.0100, L3400.8000, L501.9520 #### [facility] [address] [place], [place], [phone] (136) Platelets (Bld) [#/Vol] 326 10*3/uL Normal 150-450 [facility] Comment on above: Performed By: #### L 3410.2400, L3300.1200, L500.4050, L501.6710, L3200.1100, L101.9900, L2100.0000, L5500.0550, L504.2610, L3100.5440, L100.0100, L3400.8000, L501.9520 #### [facility] [address] [facility] [place], [place], [phone] (732) RBC (Bld) [#/Vol] 5.10 10*6/uL Normal 4.6-6.2 [facility] Comment on above: Performed By: #### L 3410.2400, L3300.1200, L500.4050, L501.6710, L3200.1100, L101.9900, L2100.0000, L5500.0550, L504.2610, L3100.5440, L100.0100, L3400.8000, L501.9520 #### [facility] [address] [facility] [place], [place], [phone] (442) RDW SD 37.9 fl Normal 35.1-43.9 [facility] Comment on above: Performed By: #### L 3410.2400, L3300.1200, L500.4050, L501.6710, L3200.1100, L101.9900, L2100.0000, L5500.0550, L504.2610, L3100.5440, L100.0100, L3400.8000, L501.9520 #### [facility] [address] [place], [place], [phone] WBC (Bld) [#/Vol] 8.2 10*3/uL Normal 4.4-11.0 [facility] Comment on above: Performed By: #### L 3410.2400, L3300.1200, L500.4050, L501.6710, L3200.1100, L101.9900, L2100.0000, L5500.0550, L504.2610, L3100.5440, L100.0100, L3400.8000, L501.9520 #### [facility] [address] [place], [place], [id number] CRPon 11-09-2024 C-REACTIVE PROT 4.85 mg/L High 0.0-3.0 [facility] Comment on above: Performed By: #### L 3410.2400, L3300.1200, L500.4050, L501.6710, L3200.1100, L101.9900, L2100.0000, L5500.0550, L504.2610, L3100.5440, L100.0100, L3400.8000, L501.9520 #### [facility] [address] [place], [place], [id number] Calculated very low density lipoprotein (VLDL) cholesterol measurementOrdered By: Jaquan Flores on 11-09-2024 Calculated very low density lipoprotein (VLDL) cholesterol measurement 58 mg/dL High 5-40 [facility] Carbon dioxide, total [Moles /volume] in Central venous bloodOrdered By: Jaquan Flores on 11-09-2024 CO2 [Moles/Vol] 25.0 mmol/L 21.0-32.0 [facility] Chitobioside IgA antibody as sayOrdered By: Jaquan Flores on 11-09-2024 Chitobioside IgA IA Qn 9 units 0-90 [facility] Comment on above: Negative: <80 Equivo kalani: 80-90 Positive: >90 Chloride assayOrdered By: Ra igor Flores on 11-09-2024 Chloride [Moles/Vol] 103 mmol/L 98-108 [facility] Comprehensive Metabolic Prof ilon 11-09-2024 Albumin [Mass/Vol] 4.7 g/dL Normal 3.5-5.0 [facility] Comment on above: Performed By: #### L 3410.2400, L3300.1200, L500.4050, L501.6710, L3200.1100, L101.9900, L2100.0000, L5500.0550, L504.2610, L3100.5440, L100.0100, L3400.8000, L501.9520 #### [facility] [address] [place], [place], [id number] Albumin/Globulin [Mass ratio] 1.6 {ratio} Normal 0.9-2.4 [facility] Comment on above: Performed By: #### L 3410.2400, L3300.1200, L500.4050, L501.6710, L3200.1100, L101.9900, L2100.0000, L5500.0550, L504.2610, L3100.5440, L100.0100, L3400.8000, L501.9520 #### [facility] [address] [place], [address] ALK PHOS 51 U/L Normal 40-129 [facility] Comment on above: Performed By: #### L 3410.2400, L3300.1200, L500.4050, L501.6710, L3200.1100, L101.9900, L2100.0000, L5500.0550, L504.2610, L3100.5440, L100.0100, L3400.8000, L501.9520 #### [facility] [address] [place], [place], [id number] ALT [Catalytic activity/Vol] 23 U/L Normal <=46 [facility] Comment on above: Performed By: #### L 3410.2400, L3300.1200, L500.4050, L501.6710, L3200.1100, L101.9900, L2100.0000, L5500.0550, L504.2610, L3100.5440, L100.0100, L3400.8000, L501.9520 #### [facility] [address] [place], [place], [phone] AST [Catalytic activity/Vol] 22 U/L Normal <=37 [facility] Comment on above: Performed By: #### L 3410.2400, L3300.1200, L500.4050, L501.6710, L3200.1100, L101.9900, L2100.0000, L5500.0550, L504.2610, L3100.5440, L100.0100, L3400.8000, L501.9520 #### [facility] [address] [place], [address] Bilirubin [Mass/Vol] 0.47 mg/dL Normal 0.00-1.30 [facility] Comment on above: Performed By: #### L 3410.2400, L3300.1200, L500.4050, L501.6710, L3200.1100, L101.9900, L2100.0000, L5500.0550, L504.2610, L3100.5440, L100.0100, L3400.8000, L501.9520 #### [facility] [address] [place], [address] BUN/CRE 17.5 RATIO Normal 10-20 [facility] Comment on above: Performed By: #### L 3410.2400, L3300.1200, L500.4050, L501.6710, L3200.1100, L101.9900, L2100.0000, L5500.0550, L504.2610, L3100.5440, L100.0100, L3400.8000, L501.9520 #### [facility] [address] [place], [address] Calcium [Mass/Vol] 9.1 mg/dL Normal 7.6-11.0 [facility] Comment on above: Performed By: #### L 3410.2400, L3300.1200, L500.4050, L501.6710, L3200.1100, L101.9900, L2100.0000, L5500.0550, L504.2610, L3100.5440, L100.0100, L3400.8000, L501.9520 #### [facility] [address] [place], [address] Chloride [Moles/Vol] 103 mmol/L Normal 98-108 [facility] Comment on above: Performed By: #### L 3410.2400, L3300.1200, L500.4050, L501.6710, L3200.1100, L101.9900, L2100.0000, L5500.0550, L504.2610, L3100.5440, L100.0100, L3400.8000, L501.9520 #### [facility] [address] [place], [address] CO2 [Moles/Vol] 25.0 mmol/L Normal 21.0-32.0 [facility] Comment on above: Performed By: #### L 3410.2400, L3300.1200, L500.4050, L501.6710, L3200.1100, L101.9900, L2100.0000, L5500.0550, L504.2610, L3100.5440, L100.0100, L3400.8000, L501.9520 #### [facility] [address] [place], [address] Creatinine [Mass/Vol] 0.87 mg/dL Normal 0.70-1.20 [facility] Comment on above: Performed By: #### L 3410.2400, L3300.1200, L500.4050, L501.6710, L3200.1100, L101.9900, L2100.0000, L5500.0550, L504.2610, L3100.5440, L100.0100, L3400.8000, L501.9520 #### [facility] [address] [place], [place], [phone] GAP 11 Normal 5-15 [facility] Comment on above: Performed By: #### L 3410.2400, L3300.1200, L500.4050, L501.6710, L3200.1100, L101.9900, L2100.0000, L5500.0550, L504.2610, L3100.5440, L100.0100, L3400.8000, L501.9520 #### [facility] [address] [place], [address] GFR/1.73 sq M.predicted among non-blacks MDRD (S/P/Bld) [Vol rate/Area] 111 mL/min/{1.73_m2} Normal >60 [facility] Comment on above: Result Comment: mL/m in/1.73m2 CKD-EPI Creatinine Equation (2020) Performed By: #### L 3410.2400, L3300.1200, L500.4050, L501.6710, L3200.1100, L101.9900, L2100.0000, L5500.0550, L504.2610, L3100.5440, L100.0100, L3400.8000, L501.9520 #### [facility] [address] [place], [place], [id number] Globulin (S) [Mass/Vol] 3.0 g/dL Normal 2.2-4.2 [facility] Comment on above: Performed By: #### L 3410.2400, L3300.1200, L500.4050, L501.6710, L3200.1100, L101.9900, L2100.0000, L5500.0550, L504.2610, L3100.5440, L100.0100, L3400.8000, L501.9520 #### [facility] [address] [place], [place], [phone] (652) Glucose [Mass/Vol] 100 mg/dL High 70-99 [facility] Comment on above: Performed By: #### L 3410.2400, L3300.1200, L500.4050, L501.6710, L3200.1100, L101.9900, L2100.0000, L5500.0550, L504.2610, L3100.5440, L100.0100, L3400.8000, L501.9520 #### [facility] [address] [place], [address] Potassium [Moles/Vol] 4.0 mmol/L Normal 3.3-5.1 [facility] Comment on above: Performed By: #### L 3410.2400, L3300.1200, L500.4050, L501.6710, L3200.1100, L101.9900, L2100.0000, L5500.0550, L504.2610, L3100.5440, L100.0100, L3400.8000, L501.9520 #### [facility] [address] [place], [address] Sodium [Moles/Vol] 139 mmol/L Normal 133-145 [facility] Comment on above: Performed By: #### L 3410.2400, L3300.1200, L500.4050, L501.6710, L3200.1100, L101.9900, L2100.0000, L5500.0550, L504.2610, L3100.5440, L100.0100, L3400.8000, L501.9520 #### [facility] [address] [place], [address] T PROT 7.8 g/dL Normal 5.9-8.4 [facility] Comment on above: Performed By: #### L 3410.2400, L3300.1200, L500.4050, L501.6710, L3200.1100, L101.9900, L2100.0000, L5500.0550, L504.2610, L3100.5440, L100.0100, L3400.8000, L501.9520 #### [facility] [address] [place], [address] Urea nitrogen [Mass/Vol] 15 mg/dL Normal 4-19 [facility] Comment on above: Performed By: #### L 3410.2400, L3300.1200, L500.4050, L501.6710, L3200.1100, L101.9900, L2100.0000, L5500.0550, L504.2610, L3100.5440, L100.0100, L3400.8000, L501.9520 #### [facility] [address], [address] Albumin [Mass/Vol] 4.7 g/dL Normal 3.5-5.0 [facility] Comment on above: Performed By: #### L 3410.2400, L3300.1200, L500.4050, L501.6710, L3200.1100, L101.9900, L2100.0000, L5500.0550, L504.2610, L3100.5440, L100.0100, L3400.8000, L501.9520 #### [facility] [address] [place], [address] Albumin/Globulin [Mass ratio] 1.6 {ratio} Normal 0.9-2.4 [facility] Comment on above: Performed By: #### L 3410.2400, L3300.1200, L500.4050, L501.6710, L3200.1100, L101.9900, L2100.0000, L5500.0550, L504.2610, L3100.5440, L100.0100, L3400.8000, L501.9520 #### [facility] [address] [place], [address] ALK PHOS 52 U/L Normal 40-129 [facility] Comment on above: Performed By: #### L 3410.2400, L3300.1200, L500.4050, L501.6710, L3200.1100, L101.9900, L2100.0000, L5500.0550, L504.2610, L3100.5440, L100.0100, L3400.8000, L501.9520 #### [facility] [address] [place], [address] ALT [Catalytic activity/Vol] 20 U/L Normal <=46 [facility] Comment on above: Performed By: #### L 3410.2400, L3300.1200, L500.4050, L501.6710, L3200.1100, L101.9900, L2100.0000, L5500.0550, L504.2610, L3100.5440, L100.0100, L3400.8000, L501.9520 #### [facility] [place], [address] AST [Catalytic activity/Vol] 21 U/L Normal <=37 [facility] Comment on above: Performed By: #### L 3410.2400, L3300.1200, L500.4050, L501.6710, L3200.1100, L101.9900, L2100.0000, L5500.0550, L504.2610, L3100.5440, L100.0100, L3400.8000, L501.9520 #### [facility] [address] [place], [place], [id number] Bilirubin [Mass/Vol] 0.50 mg/dL Normal 0.00-1.30 [facility] Comment on above: Performed By: #### L 3410.2400, L3300.1200, L500.4050, L501.6710, L3200.1100, L101.9900, L2100.0000, L5500.0550, L504.2610, L3100.5440, L100.0100, L3400.8000, L501.9520 #### [facility] [address] [place], [place], [id number] BUN/CRE 18.7 RATIO Normal 10-20 [facility] Comment on above: Performed By: #### L 3410.2400, L3300.1200, L500.4050, L501.6710, L3200.1100, L101.9900, L2100.0000, L5500.0550, L504.2610, L3100.5440, L100.0100, L3400.8000, L501.9520 #### [facility] [address] [place], [place], [phone] (245) Calcium [Mass/Vol] 9.1 mg/dL Normal 7.6-11.0 [facility] Comment on above: Performed By: #### L 3410.2400, L3300.1200, L500.4050, L501.6710, L3200.1100, L101.9900, L2100.0000, L5500.0550, L504.2610, L3100.5440, L100.0100, L3400.8000, L501.9520 #### [facility] [address] [place], [place], [phone] (741) Chloride [Moles/Vol] 103 mmol/L Normal 98-108 [facility] Comment on above: Performed By: #### L 3410.2400, L3300.1200, L500.4050, L501.6710, L3200.1100, L101.9900, L2100.0000, L5500.0550, L504.2610, L3100.5440, L100.0100, L3400.8000, L501.9520 #### [facility] [address] [place], [address] (767) CO2 [Moles/Vol] 24.7 mmol/L Normal 21.0-32.0 [facility] Comment on above: Performed By: #### L 3410.2400, L3300.1200, L500.4050, L501.6710, L3200.1100, L101.9900, L2100.0000, L5500.0550, L504.2610, L3100.5440, L100.0100, L3400.8000, L501.9520 #### [facility] [address], [address] Creatinine [Mass/Vol] 0.82 mg/dL Normal 0.70-1.20 [facility] Comment on above: Performed By: #### L 3410.2400, L3300.1200, L500.4050, L501.6710, L3200.1100, L101.9900, L2100.0000, L5500.0550, L504.2610, L3100.5440, L100.0100, L3400.8000, L501.9520 #### [facility] [address] [facility] [place], [address] GAP 11 Normal 5-15 [facility] Comment on above: Performed By: #### L 3410.2400, L3300.1200, L500.4050, L501.6710, L3200.1100, L101.9900, L2100.0000, L5500.0550, L504.2610, L3100.5440, L100.0100, L3400.8000, L501.9520 #### [facility] [address] [facility] [place], [address] GFR/1.73 sq M.predicted among non-blacks MDRD (S/P/Bld) [Vol rate/Area] 113 mL/min/{1.73_m2} Normal >60 [facility] Comment on above: Result Comment: mL/m in/1.73m2 CKD-EPI Creatinine Equation (2020) Performed By: #### L 3410.2400, L3300.1200, L500.4050, L501.6710, L3200.1100, L101.9900, L2100.0000, L5500.0550, L504.2610, L3100.5440, L100.0100, L3400.8000, L501.9520 #### [facility] [address] [place], [address] (792) Globulin (S) [Mass/Vol] 3.0 g/dL Normal 2.2-4.2 [facility] Comment on above: Performed By: #### L 3410.2400, L3300.1200, L500.4050, L501.6710, L3200.1100, L101.9900, L2100.0000, L5500.0550, L504.2610, L3100.5440, L100.0100, L3400.8000, L501.9520 #### [facility] [address] [place], [address] Glucose [Mass/Vol] 98 mg/dL Normal 70-99 [facility] Comment on above: Performed By: #### L 3410.2400, L3300.1200, L500.4050, L501.6710, L3200.1100, L101.9900, L2100.0000, L5500.0550, L504.2610, L3100.5440, L100.0100, L3400.8000, L501.9520 #### [facility] [address] [place], [address] Potassium [Moles/Vol] 4.0 mmol/L Normal 3.3-5.1 [facility] Comment on above: Performed By: #### L 3410.2400, L3300.1200, L500.4050, L501.6710, L3200.1100, L101.9900, L2100.0000, L5500.0550, L504.2610, L3100.5440, L100.0100, L3400.8000, L501.9520 #### [facility] [address] [place], [address] Sodium [Moles/Vol] 139 mmol/L Normal 133-145 [facility] Comment on above: Performed By: #### L 3410.2400, L3300.1200, L500.4050, L501.6710, L3200.1100, L101.9900, L2100.0000, L5500.0550, L504.2610, L3100.5440, L100.0100, L3400.8000, L501.9520 #### [facility] [facility] [address] [place], [address] T PROT 7.7 g/dL Normal 5.9-8.4 [facility] Comment on above: Performed By: #### L 3410.2400, L3300.1200, L500.4050, L501.6710, L3200.1100, L101.9900, L2100.0000, L5500.0550, L504.2610, L3100.5440, L100.0100, L3400.8000, L501.9520 #### [facility] [address] [place], [address] Urea nitrogen [Mass/Vol] 15 mg/dL Normal 4-19 [facility] Comment on above: Performed By: #### L 3410.2400, L3300.1200, L500.4050, L501.6710, L3200.1100, L101.9900, L2100.0000, L5500.0550, L504.2610, L3100.5440, L100.0100, L3400.8000, L501.9520 #### [facility] [address] [place], [address] Eosinophil percentageOrdered By: Jaquan Flores on 11-09-2024 Eosinophils/100 WBC (Bld) 2.0 % 0-5 [facility] Erythrocyte Sed Rateon 11-09 SED RATE 6 mm/hr Normal 0-20 [facility] Comment on above: Performed By: #### L 3410.2400, L3300.1200, L500.4050, L501.6710, L3200.1100, L101.9900, L2100.0000, L5500.0550, L504.2610, L3100.5440, L100.0100, L3400.8000, L501.9520 #### [facility] [address] [place], [address] Erythrocyte distribution wid th ratioOrdered By: Jaquan Flores on 11-09-2024 Erythrocyte distribution width (RBC) [Ratio] 11.8 % 11.6-14.6 [facility] Erythrocyte distribution wid th standard deviationOrdered By: Jaquan Flores on 11-09-2024 Erythrocyte distribution width (RBC) [Ratio] 37.9 fl 35.1-43.9 [facility] Erythrocyte sedimentation ra teOrdered By: Jaquan Flores on 11-09-2024 ESR (Bld) [Velocity] 6 mm/h 0-20 [facility] Gastroenterology Visit Repor ton 11-09-2024 Gastroenterology Visit Report [facility] [address] [place] [address] OFFICE VISIT Date of Service: 11/09/24 MR#: [id number] Acct: [id number] Name: LIBBY WOODS Rep #: [id number] : 1985 Provider: Jaquan Flores DO Age/Sex: 39/M [place] [facility] [place]: Signed Intake Vital Signs 08/12/23 14:15 Height 6 ft 7 in Intake Visit Reasons: ANAL FISTULA Allergies No Known Allergies Allergy (Verified 08/12/23 14:10) Medications ???Medication ???Instructions ???Recorded ???Confirmed ???Type NK 08/06/23 11/09/24 History Nurse's Note: Pt was scheduled for colonoscopy on 12.13.24 at the end of their appt today. Reviewed prep instructions and which medications to hold prior to procedure with pt in office. A paper copy of miralax prep instructions were given to pt. Pt denies any questions or concerns at this time. [facility] Medical History (Updated 11/09/24 @ 08:[address] Jaquan Flores DO) Perirectal abscess Left ear impacted cerumen Abscess of rectum No active medical problems Surgical History (Updated 11/09/24 @ 07:31 by Mckenzie Dougherty) H/O anal fistulotomy No significant past surgical history Family History Father Heart disease Diabetes Hypertension Social History Smoking Status: Never smoker alcohol intake: never substance use type: does not use HPI HPI Details: LIBBY WOODS, is a 39-year-old man with a long history of intermittent abdominal pain, frequent bowel movements, and recurring perianal complications. He reports cyclical episodes of cramping abdominal pain, which is variable in location but often affects the lower abdomen. He experiences frequent, loose, and sometimes watery stools. 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 He notes that the perianal pain can be debilitating and that he experiences significant frustration with his chronic condition. The patient reports having no known family history of inflammatory bowel disease (IBD) but has not seen a sas clinical programmer. He denies a recent history of fever, bloody diarrhea, nausea, or vomiting but admits to general fatigue and some unintended weight loss. He has not had a colonoscopy or other advanced imaging for his abdominal symptoms. * He denies fatigue. Denies fever or chills. Unintended weight loss. * Intermittent abdominal pain, frequent diarrhea. Reports chronic perianal discharge and pain. Denies nausea, vomiting, or significant rectal bleeding. * ???Denies joint pain or swelling. * ???Denies any skin rashes or lesions. * ???Denies any eye irritation or visual changes Lab Tests: (To be ordered) * Complete Blood Count :???May show elevated white blood cell count during active infection. Anemia may be present due to chronic inflammation or poor nutrition. * C-Reactive Protein Erythrocyte Sedimentation Rate :???Likely elevated, indicating systemic inflammation. * Fecal Calprotectin:???Likel y elevated, suggesting intestinal inflammation and highly useful for differentiating IBD from irritable bowel syndrome . * Stool Studies:???To rule out infectious etiologies, such as???Clostridium difficile, parasites, or bacterial pathogens. * Liver Function Tests (LFTs):???To evaluate for any hepatobiliary complications.??? Imaging Procedures:???(Planne d) * Pelvic MRI with fistula protocol:???This is the gold-standard imaging to accurately map the extent, complexity, and location of the perianal fistulas and identify any associated abscesses. * Colonoscopy with biopsy:???To visually assess the extent of Crohn's disease in the colon, rectum, and terminal ileum, and to obtain tissue samples for definitive diagnosis. Biopsies may reveal non-caseating granulomas, a hallmark of Crohn's. ROS Const Constitutional: No fatigue, fever(s) or weight change ENT ENT: No difficulty swallowing Gastro GI: Positive for diarrhea; No abdominal pain, belching, bloating, change in bowel habits, change in stool character, coffee ground emesis, constipation, cramping, heartburn, difficulty swallowing, feeling full early, excessive flatus, incontinent of stools, Vomiting blood/hematemesis, Blood in stool, loose stools, Black,tarry stools, nausea/dyspepsia, pain with swallowing, vomiting or other Musc Musculoskeletal: No joint pain Skin Skin: No yellowing of the eye or itchy eyes Psych Psychiatric: No anxiety and No depression Endo Endocrine: No fatigue or weight change Aller/Imm Allergy/Immunologic: No itchy eyes Khurram/Lymp Hematologic/Lymphatic : No easy bleeding or easy bruising Exam Const General: cooperative and healthy appearing Resp Effo (more content not included)... Normal [facility] Glomerular filtration rate ( GFR) estimation/1.73 sq m using serum, plasma, or whole bOrdered By: Jaquan Flores on 11-09-2024 GFR/1.73 sq M.predicted among non-blacks MDRD (S/P/Bld) [Vol rate/Area] 111 mL/min/{1.73_m2} >60 [facility] Comment on above: mL/min/1.73m2 CKD-EP I Creatinine Equation (2020) Hematocrit Auto (Bld) [Volum e fraction]Ordered By: Jaquan Flores on 11-09-2024 Hematocrit (Bld) [Volume fraction] 44.8 % 40-54 [facility] Hemoglobin measurementOrdere d By: Jaquan Flores on 11-09-2024 Hemoglobin (Bld) [Mass/Vol] 15.1 g/dL 13.0-16. 5 [facility] IgEOrdered By: Jaquan delgado on 11-09-2024 IgE 14 IU/mL 6-495 [facility] Immature granulocytes/100 WB C Auto (Bld)Ordered By: Jaquan Flores on 11-09-2024 Immature granulocytes/100 WBC (Bld) 0.500 % 0.0-0.9 [facility] Comment on above: IG% - Immature Granu locytes (promyelocytes, myelocytes and metamyelocytes) > 1% indicates that a LEFT SHIFT is Present. LDHon 11-09-2024 LDH 227 U/L Normal 87-241 [facility] Comment on above: Order Comment: 1 Performed By: #### L 3410.2400, L3300.1200, L500.4050, L501.6710, L3200.1100, L101.9900, L2100.0000, L5500.0550, L504.2610, L3100.5440, L100.0100, L3400.8000, L501.9520 #### [facility] [address] [place], [address] LDL calc ser/plasOrdered By: Jaquan Flores on 11-09-2024 Cholesterol in LDL [Mass/Vol] 104 mg/dL [facility] Comment on above: Qvhnvjnyzz=654-489 m g/dL & Higher Xwoz=379 mg/dL or greaterFriedwald Equation for LDL-C Laboratory - Chemistry and C hemistry - challengeOrdered By: Jaquan Flores on 11-09-2024 AST [Catalytic activity/Vol] 22 U/L <38 [facility] - Miscellaneous t estsOrdered By: Jaquan Flores on 11-09-2024 Laboratory comment Rajan (Report) Comment . [facility] Comment on above: Pattern is not sugge stive of Inflammatory Bowel Disease Service comment (Unsp spec) [Interp] Comment . [facility] Comment on above: Levels of Specific I gE Class Description of Class ----- < 0.10 0 Negative 0.10 - 0.31 0/I Equivocal/Low 0.32 - 0.55 I Low 0.56 - 1.40 II Moderate 1.41 - 3.90 III High 3.91 - 19.00 IV Very High 19.01 - 100.00 V Very High >100.00 Very High Lactate dehydrogenase (LDH) measurementOrdered By: Jaquan Flores on 11-09-2024 LDH [Catalytic activity/Vol] 227 U/L 87-241 [facility] Laminaribioside carbohydrate IgG antibody assayOrdered By: Jaquan Flores on 11-09-2024 Laminaribioside IgG IA Qn 4 units 0-60 [facility] Comment on above: Negative:<55 Equivoc al: 55-60 Positive: >60 Lipid Profileon 11-09-2024 CHOL:HDL 6.10 Normal [facility] Comment on above: Performed By: #### L 3410.2400, L3300.1200, L500.4050, L501.6710, L3200.1100, L101.9900, L2100.0000, L5500.0550, L504.2610, L3100.5440, L100.0100, L3400.8000, L501.9520 #### [facility] [address] [place], [address] Cholesterol [Mass/Vol] 194 mg/dL Normal <=200 [facility] Comment on above: Result Comment: Chol esterol level, Desirable <200 mg/dL Borderline high cholesterol 200-239 mg/dL High cholesterol >=240 mg/dL Recommendations of the NCEP Adult Treatment Panel for the following risk-cutoff thresholds for the [place] population. Performed By: #### L 3410.2400, L3300.1200, L500.4050, L501.6710, L3200.1100, L101.9900, L2100.0000, L5500.0550, L504.2610, L3100.5440, L100.0100, L3400.8000, L501.9520 #### [facility] [address] [place], [address] Cholesterol in HDL [Mass/Vol] 32 mg/dL Low [facility] Comment on above: Result Comment: Clarice onal Cholesterol Education Program (NCEP) guidelines: <40 mg/dL: Low HDL-cholesterol (major risk factor for CHD) >= 60 mg/dL: High HDL-cholesterol (negative risk factor for CHD) HDL-cholesterol is affected by a number of factors, e.g. smoking, exercise, hormones, sex and age. Performed By: #### L 3410.2400, L3300.1200, L500.4050, L501.6710, L3200.1100, L101.9900, L2100.0000, L5500.0550, L504.2610, L3100.5440, L100.0100, L3400.8000, L501.9520 #### [facility] [address] [place], [place], [id number] Cholesterol in LDL [Mass/Vol] 104 mg/dL Normal [facility] Comment on above: Result Comment: Bord rwmmcw=455-360 mg/dL Higher Xdrt=953 mg/dL or greater Friedwald Equation for LDL-C Performed By: #### L 3410.2400, L3300.1200, L500.4050, L501.6710, L3200.1100, L101.9900, L2100.0000, L5500.0550, L504.2610, L3100.5440, L100.0100, L3400.8000, L501.9520 #### [facility] [address], [address] Cholesterol in VLDL [Mass/Vol] 58 mg/dL High 5-40 [facility] Comment on above: Performed By: #### L 3410.2400, L3300.1200, L500.4050, L501.6710, L3200.1100, L101.9900, L2100.0000, L5500.0550, L504.2610, L3100.5440, L100.0100, L3400.8000, L501.9520 #### [facility] [address] [place], [address] Triglyceride [Mass/Vol] 292 mg/dL High [facility] Comment on above: Result Comment: The drugs N-Acetylcysteine and Metamizole may falsely depress this assay. Normal range: <150 mg/dL Borderline High: 150-199 mg/dL High: 200-499 mg/dL Very High: >500 mg/dL Performed By: #### L 3410.2400, L3300.1200, L500.4050, L501.6710, L3200.1100, L101.9900, L2100.0000, L5500.0550, L504.2610, L3100.5440, L100.0100, L3400.8000, L501.9520 #### [facility] [address] [place], [address] MCV (mean corpuscular volume ) determinationOrdered By: Jaquan Flores on 11-09-2024 MCV (RBC) [Entitic vol] 87.8 fL 80-94 [facility] Mean corpuscular hemoglobin (MCH) determinationOrdered By: Jaquan Flores on 11-09-2024 MCH (RBC) [Entitic mass] 29.6 pg 27.0-32.0 [facility] Mean corpuscular hemoglobin concentration (MCHC) determinationOrdered By: Jaquan Flores on 11-09-2024 MCHC (RBC) [Mass/Vol] 33.7 g/dL 32-36 [facility] Mean platelet volume determi nationOrdered By: Jaquan Flores on 11-09-2024 Platelet mean volume (Bld) [Entitic vol] 8.7 fL 6.2-12.0 [facility] Monocyte percentageOrdered B y: Jaquan Flores on 11-09-2024 Monocytes/100 WBC (Bld) 8.2 % 0-10 [facility] Neutrophil percentageOrdered By: Jaquan Flores on 11-09-2024 Neutrophils/100 WBC (Bld) 56.3 % 47-70 [facility] Nucleated red blood cell per centageOrdered By: Jaquan Flores on 11-09-2024 Nucleated RBC/100 WBC (Bld) [Ratio] 0 % 0-5 [facility] Platelet countOrdered By: Ra igor Flores on 11-09-2024 Platelets (Bld) [#/Vol] 326 10*3/uL 150-450 [facility] Potassium measurement (mass/ volume)Ordered By: Jaquan Flores on 11-09-2024 Potassium (Unsp spec) [Mass/Vol] 4.0 mmol/L 3.3-5.1 [facility] Qualitative QuantiFERON-TB g old in tube testOrdered By: Jaquan Flores on 11-09-2024 M. tuberculosis tuberculin stim IFN-g Ql (Bld) 0.10 IU/mL . [facility] RBC Auto (Bld) [#/Vol]Ordere d By: Jaquan Flores on 11-09-2024 RBC (Bld) [#/Vol] 5.10 10*6/uL 4.6-6.2 [facility] Screening total cholesterol/ high density lipoprotein (HDL) cholesterol ratioOrdered By: Jaquan Flores on 11-09-2024 Cholesterol.total/Cholester ol in HDL [Mass ratio] 6.10 {ratio} [facility] Serum DNA double strand anti body assay (units/volume)Ordered By: Jaquan Flores on 11-09-2024 DNA double strand Ab Qn (S) [IU]/mL 0-9 [facility] Comment on above: Negative <5 Equivoca l 5 - 9 Positive >9 Serum Scl-70 antibody assay (units/volume)Ordered By: Jaquan Flores on 11-09-2024 SCL-70 extractable nuclear Ab Qn (S) <0.2 AI 0.0-0.9 [facility] Comment on above: Previous reported re sult: TNP AIEdited by: JACKIE on 11/13/24:0107 AMENDED REPORT 11/13/24106 ANTISCLER previously reported as: Test not performed Serum beef IgE antibody assa y (units/volume)Ordered By: Jaquan Flores on 11-09-2024 Beef IgE Qn (S) <0.10 kU/L Class 0 [facility] Serum classic neutrophil cyt oplasmic antibody assay (units/volume)Ordered By: Jaquan Flores on 11-09-2024 Neutrophil cytoplasmic Ab.classic Qn (S) <1:20 titer Neg:<1:20 [facility] Serum codfish IgE antibody a ssay (units/volume)Ordered By: Jaquan Flores on 11-09-2024 Codfish IgE Qn (S) <0.10 kU/L Class 0 [facility] Serum corn IgE antibody assa y (units/volume)Ordered By: Jaquan Flores on 11-09-2024 [place] IgE Qn (S) <0.10 kU/L Class 0 [facility] Serum cow milk IgE antibody assay (units/volume)Ordered By: Jaquan Flores on 11-09-2024 Cow milk IgE Qn (S) <0.10 kU/L Class 0 [facility] Serum creatinine measurement (mass/volume)Ordered By: Jaquan Flores on 11-09-2024 Creatinine [Mass/Vol] 0.87 mg/dL 0.70-1.20 [facility] Serum globulin measurementOr dered By: Jaquan Flores on 11-09-2024 Globulin (S) [Mass/Vol] 3.0 g/dL 2.2-4.2 [facility] Serum glucose measurement (m ass/volume)Ordered By: Jaquan Flores on 11-09-2024 Glucose [Mass/Vol] 100 mg/dL High 70-99 [facility] Serum or plasma C reactive p rotein measurement (mass/volume)Ordered By: Jaquan Flores on 11-09-2024 CRP [Mass/Vol] 4.85 mg/L High 0.0-3.0 [facility] Serum or plasma IgA measurem ent (mass/volume)Ordered By: Jaquan Flores on 11-09-2024 IgA [Mass/Vol] 132 mg/dL 90-386 [facility] Serum or plasma IgG measurem ent (mass/volume)Ordered By: Jaquan Flores on 11-09-2024 IgG [Mass/Vol] 1126 mg/dL 603-1613 [facility] Serum or plasma alanine barnett otransferase (ALT) measurementOrdered By: Jaquan Flores on 11-09-2024 ALT [Catalytic activity/Vol] 23 U/L <47 [facility] Serum or plasma albumin kendall urement (mass/volume)Ordered By: Jaquan Flores on 11-09-2024 Albumin [Mass/Vol] 4.7 g/dL 3.5-5.0 [facility] Serum or plasma albumin/glob ulin mass ratioOrdered By: Jaquan Flores on 11-09-2024 Albumin/Globulin [Mass ratio] 1.6 {ratio} 0.9-2.4 [facility] Serum or plasma alkaline willow sphatase measurementOrdered By: Jaquan Flores on 11-09-2024 ALP [Catalytic activity/Vol] 51 U/L 40-129 [facility] Serum or plasma calcium kendall urement (mass/volume)Ordered By: Jaquan Flores on 11-09-2024 Calcium [Mass/Vol] 9.1 mg/dL 7.6-11.0 [facility] Serum or plasma cholesterol in HDL measurement (mass/volume)Ordered By: Jaquan Flores on 11-09-2024 Cholesterol in HDL [Mass/Vol] 32 mg/dL Low >40 [facility] Comment on above: National Cholesterol Education Program (NCEP) guidelines:<40 mg/dL: Low HDL-cholesterol (major risk factor for CHD)>= 60 mg/dL: High HDL-cholesterol (negative risk factor for CHD)HDL-cholesterol is affected by a number of factors, e.g. smoking, exercise, hormones, sex and age. Serum or plasma cholesterol measurement (mass/volume)Ordered By: Jaquan Flores on 11-09-2024 Cholesterol [Mass/Vol] 194 mg/dL <201 [facility] Comment on above: Cholesterol level, D esirable <200 mg/dLBorderline high cholesterol 200-239 mg/dLHigh cholesterol >=240 mg/dLRecommendations of the NCEP Adult Treatment Panel for the following risk-cutoff thresholds for the [place] population. Serum or plasma mannobioside IgG antibody assay by immunoassay (units/volume)Ordered By: Jaquan Flores on 11-09-2024 Mannobioside IgG IA Qn 28 units 0-100 [facility] Comment on above: Negative: <90 Equivo kalani: 90-100 Positive: >100 This test was developed and its performance characteristics determined by [employer]. It has not been cleared or approved by the Food and Drug Administration. The FDA has determined that such clearance or approval is not necessary. Serum or plasma urea nitroge n measurement (mass/volume)Ordered By: Jaquan Flores on 11-09-2024 Urea nitrogen [Mass/Vol] 15 mg/dL 4-19 [facility] Serum peanut IgE antibody as say (units/volume)Ordered By: Jaquan Flores on 11-09-2024 Peanut IgE Qn (S) <0.10 kU/L Class 0 [facility] Serum perinuclear neutrophil cytoplasmic antibody titer by immunofluorescenceOrdered By: Jaquan Flores on 11-09-2024 Neutrophil cytoplasmic Ab.perinuclear IF (S) [Titer] <1:20 titer Neg:<1:20 [facility] Comment on above: The presence of posi tive fluorescence exhibiting P-ANCA orC-ANCA patterns alone is not specific for the diagnosis ofWegener's Granulomatosis (WG) or microscopic polyangiitis.Decisions about treatment should not be based solely onANCA IFA results. The International ANCA Group Consensusrecommends follow up testing of positive sera with both NJ-3 and MPO-ANCA enzyme immunoassays. As many as 5% serumsamples are positive only by EIA. Ref. AM J Clin Vvbnil6246;111:507-513. Serum pork IgE antibody assa y (units/volume)Ordered By: Jaquan Flores on 11-09-2024 Pork IgE Qn (S) <0.10 kU/L Class 0 [facility] Serum salmon IgE antibody as say (units/volume)Ordered By: Jaquan Flores on 11-09-2024 [place] IgE Qn (S) <0.10 kU/L Class 0 [facility] Serum soybean IgE antibody a ssay (units/volume)Ordered By: Jaquan Flores on 11-09-2024 Soybean IgE Qn (S) <0.10 kU/L Class 0 [facility] Serum tissue transglutaminas e (tTG) IgA antibody assay (units/volume)Ordered By: Jaquan Flores on 11-09-2024 tTG IgA Qn (S) <2 U/mL 0-3 [facility] Comment on above: Negative 0 - 3 Weak Positive 4 - 10 Positive >10 Tissue Transglutaminase (tTG) has been identified as the endomysial antigen. Studies have demonstr- ated that endomysial IgA antibodies have over 99% specificity for gluten sensitive enteropathy. Serum tuna IgE antibody assa y (units/volume)Ordered By: Jaquan Flores on 11-09-2024 Tuna IgE Qn (S) <0.10 kU/L Class 0 [facility] Serum wheat IgE antibody ass ay (units/volume)Ordered By: Jaquan Flores on 11-09-2024 Wheat IgE Qn (S) <0.10 kU/L Class 0 [facility] Serum whole egg IgE antibody assay (units/volume)Ordered By: Jaquan Flores on 11-09-2024 Whole Egg IgE Qn (S) <0.10 kU/L Class 0 [facility] Comment on above: Performed at: [address] [id number] Director: Derrick Duran PhD, Phone: [phone] at: [address] [id number] Director: Luis Daniel Castillo MD, Phone: [phone] Sodium levelOrdered By: Adriana Beal on 11-09-2024 Sodium [Moles/Vol] 139 mmol/L 133-145 [facility] TSH DL <= 0.005 mIU/L QnOrde red By: Jaquan Flores on 11-09-2024 TSH Qn 1.330 uIU/mL 0.300-4.200 [facility] Thyroid Stim Hormone (TSH)on 11-09-2024 TSH 1.330 uIU/mL Normal 0.300-4.200 [facility] Comment on above: Performed By: #### L 3410.2400, L3300.1200, L500.4050, L501.6710, L3200.1100, L101.9900, L2100.0000, L5500.0550, L504.2610, L3100.5440, L100.0100, L3400.8000, L501.9520 #### [facility] [address] [place], [address] Total proteinOrdered By: Ozzy Flores on 11-09-2024 Protein [Mass/Vol] 7.8 g/dL 5.9-8.4 [facility] Triglycerides measurementOrd ered By: Jaquan Flores on 11-09-2024 Triglyceride [Mass/Vol] 292 mg/dL High <199 [facility] Comment on above: The drugs N-Acetylcy steine and Metamizole may falsely depress this assay. Normal range: <150 mg/dLBorderline High: 150-199 mg/dLHigh: 200-499 mg/dLVery High: >500 mg/dL White blood cell (WBC) count Ordered By: Jaquan Flores on 11-09-2024 WBC (Bld) [#/Vol] 8.2 10*3/uL 4.4-11.0 [facility] CNOVon 08-10-2024 CNOV Office Visit (AGGHWB ) LIBBY WOODS ([id number]) 1985 M Date Time Provider Department 08/10/24 11:00 AM SAURABH RIDDLE AGGHWB During your visit today, we recorded the following information about you: Pulse Blood pressure Weight Height 80/minute 115/80 113.4 kg 2.007 m Saurabh Riddle MD 08/10/2024 11:52 AM Signed Saurabh Riddle M.D. Colon AND Rectal Surgery [address] [facility], [address] [place] [id number] DOMINGA Woods is a 39 year old White male status post lateral internal sphincterotomy HPI He is feeling well and does feel that things have healed up appropriately. He denies any new changes to his bowel habits or blood in his stool. Review of Systems Constitutional: Negative for chills, fever and weight loss. Respiratory: Negative for shortness of breath and wheezing. Cardiovascular: Negative for chest pain and palpitations. Gastrointestinal: Negative for abdominal pain, blood in stool, constipation, diarrhea, heartburn, melena, nausea and vomiting. All other systems reviewed and are negative. PAST MEDICAL HISTORY Diagnosis Date Anal fistula 12/09/2023 PAST SURGICAL HISTORY Procedure Laterality Date PAST SURGICAL HISTORY OF fistula VASECTOMY UNI/BI SPX W/POSTOP SEMEN EXAMS 10/11/2014 Social History Tobacco Use Smoking status: Never Passive exposure: Never Smokeless tobacco: Never Vaping Use Vaping status: Never Used Substance Use Topics Alcohol use: No Drug use: No FAMILY HISTORY Problem Relation Age of Onset Hypertension Father Diabetes Father The ROS, medical, surgical, family, and social history were reviewed by Saurabh Riddle MD ALLERGIES No Known Allergies Current Outpatient Medications Medication Sig docusate sodium (COLACE ORAL) Take by mouth. acetaminophen-codeine (TYLENOL-CODEINE #3) 300-30 mg per tablet Take 1 tablet by mouth every 6 hours as needed. LORazepam (ATIVAN) 1 mg tablet Take 2 tablets by mouth as directed. 1 HOUR PRIOR TO PROCEDURE No current facility-administered medications for this visit. OBJECTIVE BP 115/80 (BP Position: Sitting) Pulse 80 Ht 200.7 cm (6' 7) Wt 113.4 kg (250 lb) BMI 28.16 kg/m? BMI 28.16 kg/(m2) Physical Exam Constitutional: General: He is not in acute distress. Appearance: Normal appearance. He is not ill-appearing. Cardiovascular: Rate and Rhythm: Normal rate and regular rhythm. Heart sounds: No murmur heard. No friction rub. No gallop. Pulmonary: Effort: Pulmonary effort is normal. No respiratory distress. Breath sounds: Normal breath sounds. No wheezing or rales. Abdominal: General: There is no distension. Palpations: Abdomen is soft. There is no hepatomegaly. Tenderness: There is no abdominal tenderness. Musculoskeletal: General: No deformity. Normal range of motion. Skin: General: Skin is warm and dry. Findings: No rash. Neurological: Mental Status: He is alert and oriented to person, place, and time. Gait: Gait normal. Psychiatric: Mood and Affect: Mood normal. Judgment: Judgment normal. Perineum: Both the lateral side and the fissure site seem to have healed well and there is no persistent wound at this moment Plan ASSESSMENT/PLAN: 1. Anal fissure - ICD9: 565.0, ICD10: K60.2 It was hard to tell if he separately developed a fissure or if this was the nonhealing wound from his fistula surgery, but he seems to be doing well after lateral internal sphincterotomy and so long as he keeps on this tract there is no further treatment that I would expect to do. We will see him back on an as-needed basis. Follow up: Return for For any new issues or concerns. Saurabh Riddle M.D. Please Note: This office note has been created using [employer], a speech recognition software program, and may contain errors including punctuation, grammar, spelling, gender, and inappropriate words or phrases that pertain to the sytem. Allergies As of Date: 08/10/2024 (No Known Allergies) Date Reviewed: 08/10/2024 Reviewed by: Saurabh Riddle MD - Fully Assessed Primary Visit Diagnosis:Anal fissure [K60.2] Prescriptions as of 08/10/2024 - docusate sodium (COLACE ORAL) Take by mouth. - acetaminophen-codeine (TYLENOL-CODEINE #3) 300-30 mg per tablet Take 1 tablet by mouth every 6 hours as needed. - LORazepam (ATIVAN) 1 mg tablet Take 2 tablets by mouth as directed. 1 HOUR PRIOR TO PROCEDURE Problem List As Of Date 08/10/2024 Noted Resolved Encounter for sterilization [Z30.2] 10/11/2014 Pre-op examination [Z01.818] 07/12/2024 Anal fistula [K60.30] 07/12/2024 Disposition: Return for For any new issues or concerns. Follow-up and Disposition History for Encounter Date Provider Department Center 08/10/2024 [id number] , STE*AGGHWB [facility] (more content not included)... [facility] ANES POSTPROC EVALon 025 ANES POSTPROC EVAL HNO ID: [id number] Author: FERNANDO SMALL DO Service: Anesthesiology Author Type: Anesthesiologist Type: Anesthesia Postprocedure Evaluation Filed: 07/19/2024 08:58 Note Text: POST ANESTHESIA EVALUATION NOTE : 1985 Procedure Summary Date: 07/19/24 Room / Location: [facility] 02 / [facility] Anesthesia Start: 728 Anesthesia Stop: 806 Procedures: EXAM UNDER ANESTHESIA RECTAL (Anus) SPHINCTEROTOMY ANAL (Anus) Diagnosis: Anal fistula (Anal fistula [K60.30]) Surgeons: Saurabh Riddle MD Responsible Provider: Fernando Small DO Anesthesia Type: MAC ASA Status: 2 Anesthesia Type: MAC Last Vitals Vitals Value Taken Time BP 121/79 07/19/24 0836 Temp 36.1 ?C (97 ?F) 07/19/24 0805 HR SpO2 70 07/19/24 0837 Resp 18 07/19/24 0835 SpO2 99 % 07/19/24 0837 Post Anesthesia Patient Status Patient Evaluation: bedside. Anticipated Disposition: phase 2 then home. Neurological Status: aware and responsive. Pulmonary Status: breathing comfortably on room air Airway Control: returned to baseline unsupported. Cardiovascular Status: stable. Pain Management: clinically adequate Postoperative Hydration: acceptable. Intraoperative Events: no significant anesthesia events Post Operative Nausea/Vomiting Status: no significant post operative nausea or vomiting Recommendation: further care per PACU/ICU/floor team. Anesthesia Observations No Documentation SIGNATURE: Fernando Small DO PATIENT NAME: Libby Woods DATE: July 19, 2024 TIME: 8:58 AM CSN: [id number] [facility] ANES PRE-OPon 07-19-2024 ANES PRE-OP HNO ID: [id number] Author: FERNANDO SMALL DO Service: Anesthesiology Author Type: Anesthesiologist Type: Anesthesia Preprocedure Evaluation Filed: 07/19/2024 07:04 Note Text: ANESTHESIOLOGY DAY OF SURGERY NOTE : 1985 Procedure Information Date/Time: 07/19/24729 Procedures: EXAM UNDER ANESTHESIA RECTAL (Anus) FISTULOTOMY VS SETON Location: [place] [address] / [facility] Surgeons: Saurabh Riddle MD Estimated body mass index is 28.16 kg/m? as calculated from the following: Height as of 07/12/24: 200.7 cm (6' 7). Weight as of 07/12/24: 113.4 kg (250 lb). Most recent hematocrit and potassium results: No results found for this basename: HCT,HEMATOCRIT,K,POTA SSIUM Relevant Problems No relevant active problems I - PHYSICAL EVALUATION AIRWAY Patient intubated: No. Tracheostomy tube not present Mallampati: II. TM distance: >3 FB. Neck ROM: full ROM without neurological symptoms. Mouth opening: adequate. Short neck: no. Thick neck: no Benson present: yes DENTAL Dental findings: teeth intact. II - ANESTHESIA PLAN ASA Score: 2 Anesthetic Plan: MAC The patient is not a current smoker. NPO Status: adequate Beta Joaquin Monitoring Plan Monitoring plan: standard ASA. Post Procedure Analgesic Plan Postoperative analgesic plan: parenteral or oral opioids and multimodal analgesia. Informed Consent Anesthetic risks, benefits, alternatives, personnel and consent discussed: yes. Patient / Responsible Constitution Party agrees to proceed: yes Patient / Surrogate agrees to blood products: blood products not planned DNR status not reviewed with patient and/or family prior to surgery. Significant changes in the patient condition since the History and Physical, not otherwise documented in primary service progress note: no. Potential Anesthesia issues that may suggest increased risk of complications or contraindication to planned procedure: none. Discussed the possibility of lip / dental damage: yes No vitals data found for the desired time range. No current facility-administered medications on file as of 07/19/2024. Outpatient Medications as of 07/19/2024 Medication Sig docusate sodium (COLACE ORAL) Take by mouth. (Patient not taking: Reported on 06/15/2024) acetaminophen-codeine (TYLENOL-CODEINE #3) 300-30 mg per tablet Take 1 tablet by mouth every 6 hours as needed. (Patient not taking: Reported on 12/09/2023) LORazepam (ATIVAN) 1 mg tablet Take 2 tablets by mouth as directed. 1 HOUR PRIOR TO PROCEDURE (Patient not taking: Reported on 12/09/2023) I have interviewed and examined the patient. I have reviewed the medical record and/or the pre-anesthesia evaluation, pertinent labs, and test results. This contains updated information obtained within 48 hours of Surgery/Procedure. SIGNATURE: Fernando Small DO PATIENT NAME: Libby Woods DATE: July 19, 2024 TIME: 7:03 AM CSN: [id number] [facility] OPERATIVE NOon 07-19-2024 OPERATIVE NO HNO ID: [id number] Author: SAURABH RIDDLE MD Service: General Surgery Author Type: Physician Type: Operative Report Filed: 07/19/2024 08:15 Note Text: DEPARTMENT OF SURGERY OPERATIVE NOTE Log ID: [id number] Surgery Date: 07/19/2024 Incision/Procedure Start Time: 7:39 AM Incision Close/Procedure End Time: 7:59 AM Surgeon(s) and Quality Analyst(s): Surgeons and Role: * Saurabh Riddle MD - Primary Preoperative Diagnosis: Anal fistula [K60.30] Postoperative Diagnosis: Anal fissure PROCEDURE AND ANESTHESIA TYPE: Procedure(s) and Anesthesia Type: * EXAM UNDER ANESTHESIA RECTAL - Monitored Anesthesia Care * Lateral internal SPHINCTEROTOMY ANAL - Monitored Anesthesia Care EBL: 5 ml OPERATIVE INDICATIONS: The patient is a 39 year old male with a history of perianal fistula for which he previously had a fistulotomy and initially improved but developed recurring symptoms with pain and blood per rectum. The symptoms would come and go but were persistent and for this reason we discussed reevaluation with an exam under anesthesia. In the office it appeared that he had a nonhealing wound but this also looked like a fissure in the anterior midline and so I discussed with him the possibility of lateral internal sphincterotomy if it seems that would be the best way to get this healing. A discussusion of the risks and benefits of surgery was undertaken, at the end of which the patient understood the benefits and risks, and desired to proceed. Findings: In the anterior midline we did see the wound which appeared as a fissure with a fibroepithelial polyp at the top and some hypergranulation tissue, almost a skin tag at the base. There is exposed internal sphincter muscle and given this appearance we decided to perform the procedure appropriate for a fissure with a lateral internal sphincterotomy done on the left side. We also performed fissurectomy clearing out the base of this wound. Description of Procedure: Patient was placed in high lithotomy . Timeout was completed x 2. The perinuem was prepped and draped in the usual fashion. Digital rectal exam showed palpable abnormality in the anterior midline or just to the left of midline at the old scar site. Anoscopy was completed, showing a defect in the wall of the anal canal with exposed muscle which had the appearance of a fissure. This was at his prior fistulotomy site. Given the appearance and no evidence of persistent fistula I decided to go ahead with lateral internal sphincterotomy. We injected 0.5% Marcaine with epinephrine with 5 cc at each ischial tuberosity and 20 cc in a perianal block. We made a radial incision overlying the intersphincteric plane and then using a hemostat dissected the internal sphincter off of the external sphincter and anoderm. This was brought through the incision and cut with monopolar cautery. Good hemostasis was noted from the site and we closed this defect with a single 3-0 chromic suture. We used a curette to clear out the base of the wound in the left anterior position and after this used monopolar cautery to control a small amount of bleeding and completed the case. The scope was then removed. A sterile dressing was applied. All counts of sponges and instruments were correct x 2. The patient was taken to the recovery room in good condition. I/primary surgeon/proceduralist performed the procedure with assistance. Saurabh Riddle MD July 19, 2024 8:08 AM [facility] HISTORY PHYSICALon HISTORY PHYSICAL HNO ID: [id number] Author: YANETH MATTSON APRN.CNP Service: ? Author Type: Nurse Practitioner Type: H&P Filed: 07/12/2024 15:07 Note Text: [facility] HISTORY AND PHYSICAL EXAMINATION SERVICE DATE: 07/12/2024 SERVICE TIME: 3:00 PM PRIMARY CARE PHYSICIAN: Linda Cazares DO Assessment Patient has the following medical conditions which may affect young-operative course: Pre-op examination Medical conditions which may affect the perioperative course were address in today's visit. Anal fistula Surgery scheduled 07/19/24 ANESTHESIA FINDINGS: Intubation History: No history of difficult intubation. No abnormal airway history Significant Anesthesia Considerations: none Airway History: No history of difficult airway No abnormal airway history Romo Activity Status Index: METS: Do heavy work around the house, such as scrubbing floors, lifting or moving heavy furniture (8.00 METs) DASI Score: 8 Patient denies any chest pain or undue shortness of breath with the above physical activity. Clinical Frailty Scale: 2. Well ARISCAT Score: Age: <=50 Preoperative SpO2: >=96% Respiratory infection in the last month: No Preoperative anemia: No Surgical incision: peripheral Duration of surgery: <2 hrs Emergency procedure: No ARISCAT Score: 0 I - PHYSICAL EVALUATION AIRWAY Patient intubated: No. DENTAL Dental findings: teeth intact. II - ANESTHESIA PLAN Anesthetic Plan: MAC Beta Joaquin Monitoring Plan Post Procedure Analgesic Plan Prepared for Surgery: CONSULTS: Patient does not require consults for optimization at this time Planned Anesthetic: MAC The Following Tests/Procedures Have Been Initiated: No orders of the defined types were placed in this encounter. REASON FOR VISIT: Libby Woods is a 39 year old male who is scheduled for Procedure(s): EXAM UNDER ANESTHESIA RECTAL (N/A) FISTULOTOMY VS SETON (N/A) at the request of DrFrances @[email or web address]@ for routine HANDP. My final recommendation will be communicated back to the requesting physician by way of shared medical record or letter. Subjective The patient has the following: COVID-19 Immunization Status Current Care Gaps Covid-19 Vaccine () Never done No completion, postpone, frequency change, or communication history exists for this topic. CHIEF COMPLAINT: The reason for this visit is to perform a comprehensive review of the patient's past medical history, assess their current health status and obtain any additional testing required based on anesthesia guidelines. We will also identify any potential anesthesia problems or contraindications to the planned procedure. HPI: Libby Woods is a 39 year old male who presents to [facility] for the above procedure. Patient reports a hx of perianal abscess with anal fistula. Reports 11/2023 s/p fistulotomy. Reports developed blood in his stool again, and at times a significant amount. Report pain and burning perineal pain. After discussing with surgeon, patient agrees to surgical intervention. Risk and benefits discussed by surgeon. Patient denies any other problems or concerns at this time. REVIEW OF SYSTEMS: General: Negative for: fever. Neurological: Negative for: delirium, dementia, seizures, TIA and strokes. Respiratory: Negative for: asthma, COPD, pneumonia within 6 weeks, URI < 2 weeks and obstructive sleep apnea. Cardiovascular: Negative for: atrial fibrillation, CAD, chest pain, DVT/PE and recent TN. GI: Negative for: abdominal pain, dysphagia, hepatitis, nausea, vomiting and ETOH >2 drinks/day. : Negative for: dysuria, hematuria, urinary incontinence and renal failure. Endocrine: No history of diabetes. Has not taken steroids within the past 30 days. No history of endocrinological symptoms or problems. Negative for: diabetes mellitus and hypothyroidism. Hematology: Negative for: anemia, factor V Leiden, hemophilia and von Willebrand disease. Oncology: No history of CA metastasis, chemo within 30 days, or radiotherapy within 90 days. No history of oncological symptoms or problems. Psych: No history of psychiatric symptoms or problems. Negative for: anxiety and depression. Musculoskeletal: Negative for joint pain or swelling, back pain or muscle pain. Skin: Negative for lesions, rash and itching. Implanted Devices: No implanted devices. PAST MEDICAL HISTORY Diagnosis Date Anal fistula 12/09/2023 PAST SURGICAL HISTORY Procedure Laterality Date PAST SURGICAL HISTORY OF fistula VASECTOMY UNI/BI SPX W/POSTOP SEMEN EXAMS 10/11/2014 FAMILY HISTORY Problem Relation Age of Onset Hypertension Father Diabetes Father Social History Tobacco Use Smoking status: Never Passive exposure: Never Smokeless tobacco: Never Vaping Use Vaping status: Never Used Substance Use Topics Alcohol use: No Drug use: No Prior t (more content not included)... [facility] Anjana 06-21-2024 [facility] Telephone ([facility]) LIBBY WOODS ([id number]) 1985 M Date Time Provider Department 06/21/24 SAURABH [id number] During your visit today, we recorded the following information about you: Marni Bolanos 06/21/2024 11:23 AM Signed Surgery Checklist Type: EUA, FISTULOTOMY VS SETON Admission Type: outpatient Anesthesia: MAC Date: 08/03/24 Arrival Time: 11:00 AM Surgery Time: 1:00 PM [facility] Barreto 06/25/2024 11:20 AM Signed The patient called and asked to reschedule his Surgery he has been moved to 07/19/24 @ 7:30 am and to arrive at 6:00 am [facility]. Spoke to the patient and he is aware of the time, date, and location for his Pre-Testing appointment. Marni Bolanos Allergies As of Date: 06/21/2024 (No Known Allergies) Date Reviewed: 06/15/2024 Reviewed by: Kelly Kwan MA - Fully Assessed Reason for Visit: Procedure [88] Cmt: EUA, FISTULOTOMY VS SETON Prescriptions as of 06/25/2024 - docusate sodium (COLACE ORAL) Take by mouth. - acetaminophen-codeine (TYLENOL-CODEINE #3) 300-30 mg per tablet Take 1 tablet by mouth every 6 hours as needed. - LORazepam (ATIVAN) 1 mg tablet Take 2 tablets by mouth as directed. 1 HOUR PRIOR TO PROCEDURE Problem List As Of Date 06/21/2024 Noted Resolved Encounter for sterilization [Z30.2] 10/11/2014 Encounter Status:Closed by MARNI BOLANOS on 06/21/24 Normal [facility] CNOVon 06-15-2024 CNOV Office Visit (AGGHWB ) LIBBY WOODS ([id number]) 1985 M Date Time Provider Department 06/15/24 8:00 AM SAURABH RIDDLE [place] During your visit today, we recorded the following information about you: Pulse Blood pressure Weight 77/minute 112/79 113.4 kg Saurabh Riddle MD 06/15/2024 9:31 AM Signed Saurabh Riddle M.D. Colon AND Rectal Surgery [address] [facility], [address] [place] [id number] SUBJECTIVE Libby Woods is a 39 year old White male with perianal fistula HPI After his last surgery, he slowly felt better for about 2 months, but then in February and especially March he began to have issues again that were fairly similar. He described first having some blood in his stool, and this would come and go but could be a significant amount. He then began to have a pain that was similar to that before his prior surgery, a dull and sometimes burning perineal pain. For the last 2 weeks these things both improved and he is not having any bleeding and the pain is mostly gone Review of Systems Constitutional: Negative for chills, fever and weight loss. HENT: Negative for congestion, ear pain, hearing loss, sinus pain and sore throat. Eyes: Negative for blurred vision, double vision and pain. Respiratory: Negative for cough, shortness of breath and wheezing. Cardiovascular: Negative for chest pain, palpitations and leg swelling. Gastrointestinal: Negative for abdominal pain, blood in stool, constipation, diarrhea, heartburn, nausea and vomiting. Genitourinary: Negative for dysuria, frequency and urgency. Musculoskeletal: Negative for back pain, joint pain and neck pain. Skin: Negative for itching and rash. Neurological: Negative for dizziness, weakness and headaches. Endo/Heme/Allergies: Negative for environmental allergies. Does not bruise/bleed easily. Psychiatric/Behaviora l: Negative for depression and memory loss. The patient is not nervous/anxious and does not have insomnia. PAST MEDICAL HISTORY Diagnosis Date Anal fistula 12/09/2023 PAST SURGICAL HISTORY Procedure Laterality Date VASECTOMY UNI/BI SPX W/POSTOP SEMEN EXAMS 10/11/2014 Social History Tobacco Use Smoking status: Never Passive exposure: Never Smokeless tobacco: Never Substance Use Topics Alcohol use: No Drug use: No No family history on file. The ROS, medical, surgical, family, and social history were reviewed by Saurabh Riddle MD ALLERGIES No Known Allergies Current Outpatient Medications Medication Sig docusate sodium (COLACE ORAL) Take by mouth. acetaminophen-codeine (TYLENOL-CODEINE #3) 300-30 mg per tablet Take 1 tablet by mouth every 6 hours as needed. (Patient not taking: Reported on 12/09/2023) LORazepam (ATIVAN) 1 mg tablet Take 2 tablets by mouth as directed. 1 HOUR PRIOR TO PROCEDURE (Patient not taking: Reported on 12/09/2023) No current facility-administered medications for this visit. OBJECTIVE There were no vitals taken for this visit. No weight on file for this encounter. Physical Exam Constitutional: General: He is not in acute distress. Appearance: Normal appearance. He is not ill-appearing. Cardiovascular: Rate and Rhythm: Normal rate and regular rhythm. Heart sounds: No murmur heard. No friction rub. No gallop. Pulmonary: Effort: Pulmonary effort is normal. No respiratory distress. Breath sounds: Normal breath sounds. No wheezing or rales. Abdominal: General: There is no distension. Palpations: Abdomen is soft. There is no hepatomegaly. Tenderness: There is no abdominal tenderness. Musculoskeletal: General: No deformity. Normal range of motion. Skin: General: Skin is warm and dry. Findings: No rash. Neurological: Mental Status: He is alert and oriented to person, place, and time. Gait: Gait normal. Psychiatric: Mood and Affect: Mood normal. Judgment: Judgment normal. Perineum: Anoscopy: The patient was placed in left lateral position. On external exam there is some thin skin in the anterior midline about 5 mm outside the anal verge, no clear sinus tract. There is also some granulation tissue in the wound just inside the anal verge which is not fully healed. On digital rectal exam with a lubricated finger he has normal tone, normal squeeze, no palpable masses but there is some abnormal palpable anoderm in the anterior midline After digital exam, the lubricated scope was easily inserted to 7 cm. There is some granulation tissue and a small friable polypoid bit of tissue at the wound in the anterior midline. It has visual appearance like a fissure with some heaped granulation tissue Saurabh Riddle MD 8:19 AM 06/15/24 Plan ASSESSMENT/PLAN: 1. Anal fistula - ICD9: 565.1, ICD10: K60.30 Is likely there is still some residual from his fissure that we did not find the firs (more content not included)... [facility] 05-23-2024 [facility] ([facility]) LIBBY WOODS ([id number]) 1985 M Date Time Provider Department 05/23/24 SAURABH RIDDLE During your visit today, we recorded the following information about you: Marni Bolanos 05/23/2024 9:32 AM Signed The patient has been scheduled for a office visit for 06/15/24 with . Marni Bolanos Allergies As of Date: 05/23/2024 (No Known Allergies) Date Reviewed: 01/11/2024 Reviewed by: Kelly Kwan MA - Fully Assessed Reason for Visit: Appointment [[id number]] Prescriptions as of 05/23/2024 - docusate sodium (COLACE ORAL) Take by mouth. - acetaminophen-codeine (TYLENOL-CODEINE #3) 300-30 mg per tablet Take 1 tablet by mouth every 6 hours as needed. - LORazepam (ATIVAN) 1 mg tablet Take 2 tablets by mouth as directed. 1 HOUR PRIOR TO PROCEDURE Problem List As Of Date 05/23/2024 Noted Resolved Encounter for sterilization [Z30.2] 10/11/2014 Encounter Status:[facility] 01-11-2024 [facility] Office Visit (AGGENS3) LIBBY WOODS ([id number]) 1985 M Date Time Provider Department 01/11/24 3:00 PM SAURABH RIDDLE AGGENS3 During your visit today, we recorded the following information about you: Pulse Blood pressure Height 79/minute 108/73 2.007 m Saurabh Riddle MD 01/11/2024 3:24 PM Signed Saurabh Riddle M.D. Colon AND Rectal Surgery 1 [facility], [address] [place] [id number] SUBJECTIVE Libby Woods is a 39 year old White male s/p fistulotomy HPI He is generally doing well, a little bit of pain still and some occasional bleeding but this is all improving. Review of Systems Constitutional: Negative for chills, fever and weight loss. HENT: Negative for congestion, ear pain, hearing loss, sinus pain and sore throat. Eyes: Negative for blurred vision, double vision and pain. Respiratory: Negative for cough, shortness of breath and wheezing. Cardiovascular: Negative for chest pain, palpitations and leg swelling. Gastrointestinal: Negative for abdominal pain, blood in stool, constipation, diarrhea, heartburn, nausea and vomiting. Genitourinary: Negative for dysuria, frequency and urgency. Musculoskeletal: Negative for back pain, joint pain and neck pain. Skin: Negative for itching and rash. Neurological: Negative for dizziness, weakness and headaches. Endo/Heme/Allergies: Negative for environmental allergies. Does not bruise/bleed easily. Psychiatric/Behaviora l: Negative for depression and memory loss. The patient is not nervous/anxious and does not have insomnia. PAST MEDICAL HISTORY Diagnosis Date Anal fistula 12/09/2023 PAST SURGICAL HISTORY Procedure Laterality Date VASECTOMY UNI/BI SPX W/POSTOP SEMEN EXAMS 10/11/2014 Social History Tobacco Use Smoking status: Never Passive exposure: Never Smokeless tobacco: Never Substance Use Topics Alcohol use: No Drug use: No History reviewed. No pertinent family history. The ROS, medical, surgical, family, and social history were reviewed by Saurabh Riddle MD ALLERGIES No Known Allergies Current Outpatient Medications Medication Sig docusate sodium (COLACE ORAL) Take by mouth. acetaminophen-codeine (TYLENOL-CODEINE #3) 300-30 mg per tablet Take 1 tablet by mouth every 6 hours as needed. (Patient not taking: Reported on 12/09/2023) LORazepam (ATIVAN) 1 mg tablet Take 2 tablets by mouth as directed. 1 HOUR PRIOR TO PROCEDURE (Patient not taking: Reported on 12/09/2023) No current facility-administered medications for this visit. OBJECTIVE BP 108/73 (BP Site: Left Arm, BP Position: Sitting, BP Cuff Size: Large Adult) Pulse 79 Ht 200.7 cm (6' 7) BMI 28.16 kg/m? No weight on file for this encounter. Physical Exam Constitutional: General: He is not in acute distress. Appearance: Normal appearance. He is not ill-appearing. Abdominal: General: There is no distension. Palpations: Abdomen is soft. Tenderness: There is no abdominal tenderness. Neurological: Mental Status: He is alert and oriented to person, place, and time. Psychiatric: Mood and Affect: Mood and affect normal. Judgment: Judgment normal. Perineum: Appropriately healing fistulotomy site Plan ASSESSMENT/PLAN: 1. Anal fistula - ICD9: 565.1, ICD10: K60.30 He is doing well we will plan to see him back on an as-needed basis in the future Follow up: No follow-ups on file. Saurabh Riddle M.D. Please Note: This office note has been created using Webcrumbz, a speech recognition software program, and may contain errors including punctuation, grammar, spelling, gender, and inappropriate words or phrases that pertain to the sytem. Allergies As of Date: 01/11/2024 (No Known Allergies) Date Reviewed: 01/11/2024 Reviewed by: Kelly Kwan MA - Fully Assessed Reason for Visit: Post Op [174] Cmt: EUA Primary Visit Diagnosis:Anal fistula [K60.30] Prescriptions as of 01/11/2024 - docusate sodium (COLACE ORAL) Take by mouth. - acetaminophen-codeine (TYLENOL-CODEINE #3) 300-30 mg per tablet Take 1 tablet by mouth every 6 hours as needed. - LORazepam (ATIVAN) 1 mg tablet Take 2 tablets by mouth as directed. 1 HOUR PRIOR TO PROCEDURE Problem List As Of Date 01/11/2024 Noted Resolved Encounter for sterilization [Z30.2] 10/11/2014 Encounter Status:Closed by SAURABH RIDDLE on 01/11/24 Normal [facility] ANES POSTPROC EVALon 024 ANES POSTPROC EVAL HNO ID: [id number] Author: REJI TODD MD Service: Anesthesiology Author Type: Physician Type: Anesthesia Postprocedure Evaluation Filed: 12/27/2023 17:09 Note Text: POST ANESTHESIA EVALUATION NOTE : 1985 Procedure Summary Date: 12/27/23 Room / Location: TX OR / TX OR Anesthesia Start: 1237 Anesthesia Stop: 1323 Procedures: EXAM UNDER ANESTHESIA RECTAL (Anus) FISTULOTOMY VS SETON Diagnosis: Anal fistula (Anal fistula [K60.30]) Surgeons: Saurabh Riddle MD Responsible Provider: Reji Todd MD Anesthesia Type: MAC ASA Status: 3 Anesthesia Type: MAC Last Vitals Vitals Value Taken Time BP 120/65 12/27/23 1400 Temp 36.6 ?C (97.9 ?F) 12/27/23 1345 Pulse 69 12/27/23 1400 Resp 17 12/27/23 1400 SpO2 98 % 12/27/23 1400 Post Anesthesia Patient Status Anticipated Disposition: phase 2 then home. Neurological Status: aware and responsive. Pulmonary Status: breathing comfortably on room air Airway Control: returned to baseline unsupported. Cardiovascular Status: stable. Pain Management: clinically adequate Postoperative Hydration: acceptable. Intraoperative Events: no significant anesthesia events Post Operative Nausea/Vomiting Status: no significant post operative nausea or vomiting Recommendation: continue current plan of care. Anesthesia Observations No Documentation SIGNATURE: Reji Todd MD PATIENT NAME: Libby Woods DATE: December 27, 2023 TIME: 5:08 PM CSN: [id number] [facility] ANES PRE-OPon 12-27-2023 ANES PRE-OP HNO ID: [id number] Author: MEG PENA MD Service: Anesthesiology Author Type: Anesthesiologist Type: Anesthesia Preprocedure Evaluation Filed: 12/27/2023 11:11 Note Text: ANESTHESIOLOGY DAY OF SURGERY NOTE : 1985 Procedure Information Date/Time: 12/27/23 1145 Procedures: EXAM UNDER ANESTHESIA RECTAL (Anus) FISTULOTOMY VS SETON Location: TX OR / [place] OR Surgeons: Saurabh Riddle MD Estimated body mass index is 28.16 kg/m? as calculated from the following: Height as of 12/09/23: 200.7 cm (6' 7). Weight as of 12/09/23: 113.4 kg (250 lb). Most recent hematocrit and potassium results: No results found for this basename: HCT,HEMATOCRIT,K,POTA SSIUM Relevant Problems No relevant active problems I - PHYSICAL EVALUATION AIRWAY Patient intubated: No. Tracheostomy tube not present Mallampati: II. TM distance: >3 FB. Neck ROM: full ROM without neurological symptoms. Mouth opening: adequate. Short neck: no. Thick neck: no Benson present: yes DENTAL Dental findings: teeth intact. II - ANESTHESIA PLAN ASA Score: 3 Anesthetic Plan: MAC NPO Status: adequate Beta Joaquin Monitoring Plan Monitoring plan: standard ASA. Post Procedure Analgesic Plan Postoperative analgesic plan: parenteral or oral opioids, multimodal analgesia and per surgical service. Informed Consent Anesthetic risks, benefits, alternatives, personnel and consent discussed: yes. Patient / Responsible Constitution Party agrees to proceed: yes Patient / Surrogate agrees to blood products: Yes Vitals Value Taken Time BP 123/91 12/27/23 1036 Pulse 88 12/27/23 1036 Resp 16 12/27/23 1036 Temp 36.5 ?C (97.7 ?F) 12/27/23 1036 SpO2 98 % 12/27/23 1037 Vitals shown include unfiled device data. Facility-Administered Medications as of 12/27/2023 Medication Dose Route Frequency lidocaine (PF) 10 mg/mL (1 %) 1-2 mg injection (XYLOCAINE) 0.1-0.2 mL INTRADERMAL PRN NaCl 0.9% iv flush bag 20 mL INTRAVENOUS PRN Outpatient Medications as of 12/27/2023 Medication Sig acetaminophen-codeine (TYLENOL-CODEINE #3) 300-30 mg per tablet Take 1 tablet by mouth every 6 hours as needed. (Patient not taking: Reported on 12/09/2023) LORazepam (ATIVAN) 1 mg tablet Take 2 tablets by mouth as directed. 1 HOUR PRIOR TO PROCEDURE (Patient not taking: Reported on 12/09/2023) I have interviewed and examined the patient. I have reviewed the medical record and/or the pre-anesthesia evaluation, pertinent labs, and test results. This contains updated information obtained within 48 hours of Surgery/Procedure. SIGNATURE: Meg Pena MD PATIENT NAME: Libby Woods DATE: December 27, 2023 TIME: 11:05 AM CSN: [id number] Normal [facility] HISTORY PHYSICALon HISTORY PHYSICAL HNO ID: [id number] Author: SAURABH RIDDLE MD Service: General Surgery Author Type: Resident Type: H&P Filed: 12/27/2023 13:23 Note Text: Attestation signed by Saurabh Riddle MD at 12/27/2023 1:23 PM I personally saw and examined the patient on 12/27/2023. I reviewed the resident?s note. I agree with the resident?s assessment and plan unless otherwise noted Saurabh Riddle MD 1:23 PM 12/27/23 Please Note: This office note has been created using Webcrumbz, a speech recognition software program, and may contain errors including punctuation, grammar, spelling, gender, and inappropriate words or phrases that pertain to the sytem. UPDATED HISTORY AND PHYSICAL EXAMINATION SERVICE DATE: 12/27/2023 SERVICE TIME: 12/27/2023 SENSITIVE EXAMINATION CONSENT: The sensitive examination was discussed with the Patient or Patient's Authorized Sterile Proc Tech. As applicable, any other physician, advance practice provider, medical student, or other health professional student that will be observing or involved in the sensitive examination for educational or training purposes was discussed with the Patient or Authorized Sterile Proc Tech. The Patient or Authorized Sterile Proc Tech has agreed to proceed with the sensitive examination. (Sensitive examination includes inspection and/or palpation of the breasts, pelvis, prostate and anorectal regions) PHYSICAL EXAM MUST BE COMPLETED ON ADMISSION The History and Physical (completed in the past 30 days) has been reviewed and the patient has been examined. The contents accurately reflect the patient's condition with the following additions or revisions since the HANDP was completed. Examination indicates no changes. This HANDP can be found in the Electronic Medical Record dated . SIGNATURE: Bonilla Marquez MD PATIENT NAME: Libby Woods DATE: December 27, 2023 TIME: 12:35 PM [facility] OPERATIVE NOon 12-27-2023 OPERATIVE NO HNO ID: [id number] Author: SAURABH RIDDLE MD Service: Colorectal Author Type: Physician Type: Operative Report Filed: 12/27/2023 13:23 Note Text: DEPARTMENT OF SURGERY OPERATIVE NOTE Log ID: [id number] Surgery Date: 12/27/2023 Incision/Procedure Start Time: 12:56 PM Incision Close/Procedure End Time: 1:12 PM Surgeon(s) and Quality Analyst(s): Surgeons and Role: * Saurabh Riddle MD - Primary * Bonilla Marquez MD - Resident - Assisting Preoperative Diagnosis: Anal fistula [K60.30] Postoperative Diagnosis: Same PROCEDURE AND ANESTHESIA TYPE: Procedure(s) and Anesthesia Type: * EXAM UNDER ANESTHESIA RECTAL - Monitored Anesthesia Care * FISTULOTOMY - Monitored Anesthesia Care EBL: 5 ml OPERATIVE INDICATIONS: The patient is a 38 year old male with a history of perineal fistula, with a recurrent abscess in the same site after a prior drainage procedure. We discussed options for this and I recommended starting with an exam under anesthesia where we could delineate the depth of this and possible options for repair.. A discussusion of the risks and benefits of surgery was undertaken, at the end of which the patient understood the benefits and risks, and desired to proceed. Findings: In the anterior position just to the left of midline a fistula was present which tracked around to the left lateral position. A minimal amount of internal sphincter muscle was involved by this, and we decided this would be amenable to fistulotomy. Description of Procedure: Patient was placed in high lithotomy . Timeout was completed x 2. The perinuem was prepped and draped in the usual fashion. Digital rectal exam showed an area of palpable abnormality in the left lateral position at the dentate. On external examination about 1 cm anterior to the anal verge we found a opening concerning for the fistula tract. Anoscopy was completed, showing no other notable findings. We injected 0.5% Marcaine with epinephrine with 5 cc at each ischial tuberosity and 20 cc a perianal block. A fistula probe was introduced into the external opening and guided carefully without undue pressure up to the point at the left lateral position. We palpated on top of this and a small amount of the internal sphincter was involved, no external sphincter, and we decided to proceed with fistulotomy. This was done with monopolar cautery, cutting down onto the fistula probe. After this was open we curetted out the base of the fistula tract. One of the edges had some external hemorrhoid tissue that was enlarged and I thought it would be better to remove a bit of this edge so that this would heal flatter, so we did cut off about 3 mm further of anoderm and some external hemorrhoid tissue to allow for flat healing. After this was open we made sure there was good hemostasis throughout the wound. The scope was then removed. A sterile dressing was applied. All counts of sponges and instruments were correct x 2. The patient was taken to the recovery room in good condition. I/primary surgeon/proceduralist performed the procedure with assistance. Saurabh Riddle MD December 27, 2023 1:18 PM Normal [facility] 12-12-2023 [facility] Telephone (AGGENS3) LIBBY WOODS ([id number]) 1985 M Date Time Provider Department 12/12/23 SAURABH RIDDLE AGGENS3 During your visit today, we recorded the following information about you: Marni Bolanos 12/12/2023 2:03 PM Signed Called the patient and left a voice message asking the patient to call the office back to schedule his Procedure. Marni Bolanos Allergies As of Date: 12/12/2023 (No Known Allergies) Date Reviewed: 12/09/2023 Reviewed by: Saurabh Riddle MD - Fully Assessed Reason for Visit: Schedule Procedure [Other] Prescriptions as of 12/12/2023 - acetaminophen-codeine (TYLENOL-CODEINE #3) 300-30 mg per tablet Take 1 tablet by mouth every 6 hours as needed. - LORazepam (ATIVAN) 1 mg tablet Take 2 tablets by mouth as directed. 1 HOUR PRIOR TO PROCEDURE Problem List As Of Date 12/12/2023 Noted Resolved Encounter for sterilization [Z30.2] 10/11/2014 Encounter Status:Closed by MARNI BOLANOS on 12/12/23 [facility] CNPN Telephone (AGGENS3) LIBBY WOODS ([id number]) 1985 M Date Time Provider Department 12/12/23 SAURABH RIDDLE AGGENS3 During your visit today, we recorded the following information about you: Marni Bolanos 12/15/2023 1:24 PM Addendum Surgery Checklist Type: EUA, FISTULOTOMY VS SETON Admission Type: outpatient Anesthesia: MAC Date: 12/27/23 Arrival Time: 9:45 AM Surgery Time: 11:45 AM Location: [facility] Allergies As of Date: 12/12/2023 (No Known Allergies) Date Reviewed: 12/09/2023 Reviewed by: Saurabh Riddle MD - Fully Assessed Reason for Visit: Procedure [88] Cmt: EUA, FISTULOTOMY VS SETON Prescriptions as of 12/26/2023 - acetaminophen-codeine (TYLENOL-CODEINE #3) 300-30 mg per tablet Take 1 tablet by mouth every 6 hours as needed. - LORazepam (ATIVAN) 1 mg tablet Take 2 tablets by mouth as directed. 1 HOUR PRIOR TO PROCEDURE Problem List As Of Date 12/12/2023 Noted Resolved Encounter for sterilization [Z30.2] 10/11/2014 Encounter Status:Closed by MARNI BOLANOS on 12/12/23 [facility] CNOVon 12-09-2023 CNOV Office Visit (AGGHWB ) LIBBY WOODS ([id number]) 1985 M Date Time Provider Department 12/09/23 9:30 AM SAURABH RIDDLE During your visit today, we recorded the following information about you: Pulse Blood pressure Weight Height 80/minute 125/84 113.4 kg 2.007 m Saurabh Riddle MD 12/09/2023 11:01 AM Signed Saurabh Riddle M.D. Colon AND Rectal Surgery 1 [facility], [address] [place] [address] [facility] Libby Woods is a 38 year old White male with perianal fistula HPI The patient was referred by Dr. Jay Allred for my consultation regarding anal fistula. My final recommendations will be communicated back to the requesting physician by way of shared Medical record or letter to requesting physician via electronic or [place] mail. The patient is a pleasant 38-year-old male who over the summer developed a perianal abscess, the first he has experienced, in the anterior perianal skin. He underwent drainage of this with Dr. Allred. He did feel improved immediately after, and the area seemed to calm down but then about 6 weeks later he had recurring swelling in that area. He was treated with antibiotics and this has happened at least 1 other time since. Currently he denies pain but does have the sense that something is still off in the perineal area. He denies any blood in his stool or changes to his bowel habits. He has not had a prior colonoscopy. He has not had any other perianal or abdominal surgeries. Review of Systems Constitutional: Negative for chills, fever and weight loss. HENT: Negative for congestion, ear pain, hearing loss, sinus pain and sore throat. Eyes: Negative for blurred vision, double vision and pain. Respiratory: Negative for cough, shortness of breath and wheezing. Cardiovascular: Negative for chest pain, palpitations and leg swelling. Gastrointestinal: Negative for abdominal pain, blood in stool, constipation, diarrhea, heartburn, nausea and vomiting. Genitourinary: Negative for dysuria, frequency and urgency. Musculoskeletal: Negative for back pain, joint pain and neck pain. Skin: Negative for itching and rash. Neurological: Negative for dizziness, weakness and headaches. Endo/Heme/Allergies: Negative for environmental allergies. Does not bruise/bleed easily. Psychiatric/Behaviora l: Negative for depression and memory loss. The patient is not nervous/anxious and does not have insomnia. No past medical history on file. PAST SURGICAL HISTORY Procedure Laterality Date VASECTOMY UNI/BI SPX W/POSTOP SEMEN EXAMS Social History Tobacco Use Smoking status: Never Passive exposure: Never Smokeless tobacco: Never Substance Use Topics Alcohol use: No Drug use: No No family history on file. The ROS, medical, surgical, family, and social history were reviewed by Saurabh Riddle MD ALLERGIES No Known Allergies Current Outpatient Medications Medication Sig acetaminophen-codeine (TYLENOL-CODEINE #3) 300-30 mg per tablet Take 1 tablet by mouth every 6 hours as needed. (Patient not taking: Reported on 12/09/2023) LORazepam (ATIVAN) 1 mg tablet Take 2 tablets by mouth as directed. 1 HOUR PRIOR TO PROCEDURE (Patient not taking: Reported on 12/09/2023) No current facility-administered medications for this visit. OBJECTIVE BP 125/84 (BP Site: Left Arm, BP Position: Sitting, BP Cuff Size: Large Adult) Pulse 80 Ht 200.7 cm (6' 7) Wt 113.4 kg (250 lb) BMI 28.16 kg/m? BMI 28.16 kg/(m2) Physical Exam Constitutional: General: He is not in acute distress. Appearance: Normal appearance. He is not ill-appearing. Cardiovascular: Rate and Rhythm: Normal rate and regular rhythm. Heart sounds: No murmur heard. No friction rub. No gallop. Pulmonary: Effort: Pulmonary effort is normal. No respiratory distress. Breath sounds: Normal breath sounds. No wheezing or rales. Abdominal: General: There is no distension. Palpations: Abdomen is soft. There is no hepatomegaly. Tenderness: There is no abdominal tenderness. Musculoskeletal: General: No deformity. Normal range of motion. Skin: General: Skin is warm and dry. Findings: No rash. Neurological: Mental Status: He is alert and oriented to person, place, and time. Gait: Gait normal. Psychiatric: Mood and Affect: Mood normal. Judgment: Judgment normal. Perineum: On external examination there is a small pit in the anterior midline neck concerning for recurring fistula area and just anterior to this I can see the scar Plan ASSESSMENT/PLAN: 1. Anal fistula - ICD9: 565.1, ICD10: K60.30 We did discuss the options for treatment of the fistula and primarily this includes surgery. We will determine the level of sphincter involvement at the time and from that could decide if fistulotomy or seton drainage is appropriate. He is (more content not included)... Normal [facility] Absolute lymphocyte countOrd ered By: Linda Cazares on 02-15-2023 Lymphocytes Auto (Unsp spec) [#/Vol] 2.15 10*3/uL 0.83-4.51 [facility] Basophil percentageOrdered B y: Linda Cazares on 02-15-2023 Basophils/100 WBC (Bld) 0.6 % 0-1 [facility] Bilirubin [Mass/Vol] 0.30 mg/dL 0.20-1.00 [facility] Comment on above: For patients on eltr ombopag therapy, use of Dimension [place] TBIL is not recommended. Chloride [Moles/Vol] 108 mmol/L 98-107 [facility] Cholesterol [Mass/Vol] 202 mg/dL <200 [facility] Comment on above: <200 mg/dL Desirable 200-240 mg/dL Borderline >240 mg/dL High Risk Eosinophils/100 WBC (Bld) 0.8 % 0-5 [facility] Glucose [Mass/Vol] 106 mg/dL 74-106 [facility] Comment on above: Fasting Glucose resu lt from 100 to 125 mg/dL suggests IMPAIRED HOMEOSTASIS per A.D.A. criteria. Neutrophils (Bld) [#/Vol] 5.4 10*3/uL 2.0-7.7 [facility] Neutrophils/100 WBC (Bld) 64.6 % 47-70 [facility] Potassium [Moles/Vol] 4.8 mmol/L 3.5-5.1 [facility] Comment on above: Slight Hemolysis, Re sult may be falsely increased. Protein [Mass/Vol] 7.5 g/dL 6.4-8.2 [facility] Sodium [Moles/Vol] 143 mmol/L 136-145 [facility] Triglyceride [Mass/Vol] 559 mg/dL <199 [facility] Comment on above: The drugs N-Acetylcy steine and Metamizole may falsely depress this assay. TRIGLYCERIDE IS GREATER THAN 400 mg/dL. LDL RESULT IS INVALID AND WILL NOT BE REPORTED.Serum Triglycerides Reference Interval Normal <150 mg/dL Borderline high 150 - 199 mg/dL High 200 - 499 mg/dL Very High > or = 500 mg/dL WBC (Bld) [#/Vol] 8.4 10*3/uL 4.4-11.0 [facility] Blood erythrocytes count (nu mber/volume)Ordered By: Linda Cazares on 02-15-2023 RBC (Bld) [#/Vol] 5.07 10*6/uL 4.6-6.2 [facility] Blood hemoglobin measurement (mass/volume)Ordered By: Linda Cazares on 02-15-2023 Hemoglobin (Bld) [Mass/Vol] 14.9 g/dL 13.0-16. 5 [facility] Blood lymphocytes/100 leukoc ytesOrdered By: Linda Cazares on 02-15-2023 Lymphocytes/100 WBC (Bld) 25.7 % 19-41 [facility] Blood monocytes/100 leukocyt esOrdered By: Linda Cazares on 02-15-2023 Monocytes/100 WBC (Bld) 7.9 % 0-10 [facility] Blood platelet mean volumeOr dered By: Linda Cazares on 02-15-2023 Platelet mean volume (Bld) [Entitic vol] 9.6 fL 6.2-12.0 [facility] Determination of erythrocyte mean corpuscular volume (MCV)Ordered By: Linda Cazares on 02-15-2023 MCV (RBC) [Entitic vol] 89.2 fL 80-94 [facility] Hematocrit Auto (Bld) [Volum e fraction]Ordered By: Linda Cazares on 02-15-2023 Hematocrit (Bld) [Volume fraction] 45.2 % 40-54 [facility] Laboratory - Chemistry and C hemistry - challengeOrdered By: Linda Cazares on 02-15-2023 ALP [Catalytic activity/Vol] 48 U/L 45-117 [facility] ALT [Catalytic activity/Vol] 43 U/L 16-61 [facility] CO2 [Moles/Vol] 29.0 mmol/L 21.0-32.0 [facility] Globulin (S) [Mass/Vol] 3.5 g/dL 2.2-4.2 [facility] Urea nitrogen/Creatinine [Mass ratio] 17.0 mg/mg 10-20 [facility] Laboratory - Hematology and Cell countsOrdered By: Linda Cazares on 02-15-2023 Erythrocyte distribution width (RBC) [Entitic vol] 39.5 fL 35.1-43.9 [facility] Erythrocyte distribution width (RBC) [Ratio] 12.2 % 11.6-14.6 [facility] Immature granulocytes/100 WBC (Bld) 0.400 % 0.0-0.9 [facility] Comment on above: IG% - Immature Granu locytes (promyelocytes, myelocytes and metamyelocytes) > 1% indicates that a LEFT SHIFT is Present. MCH (RBC) [Entitic mass] 29.4 pg 27.0-32.0 [facility] Nucleated RBC/100 WBC (Bld) [Ratio] 0 % 0-5 [facility] MCHC Auto (RBC) [Mass/Vol]Or dered By: Linda Cazares on 02-15-2023 MCHC (RBC) [Mass/Vol] 33.0 g/dL 32-36 [facility] No Panel InformationOrdered By: Linda Cazares on 02-15-2023 Estimated GFR (MDRD) Amer 93 mL/min >60 [facility] Comment on above: GFR Calc Estimated GFR (MDRD) Non-Af Amer 77 mL/min >60 [facility] Comment on above: Non- GFR Calc Platelets bldOrdered By: Denise Cazares on 02-15-2023 Platelets (Bld) [#/Vol] 321 10*3/uL 150-450 [facility] Serum or plasma albumin kendall urement (mass/volume)Ordered By: Linda Cazares on 02-15-2023 Albumin [Mass/Vol] 4.0 g/dL 3.2-5.0 [facility] Serum or plasma albumin/glob ulin mass ratioOrdered By: Linda Cazares on 02-15-2023 Albumin/Globulin [Mass ratio] 1.1 {ratio} 0.9-2.4 [facility] Serum or plasma calcium kendall urement (mass/volume)Ordered By: Linda Cazares on 02-15-2023 Calcium [Mass/Vol] 9.0 mg/dL 8.5-10.1 [facility] Serum or plasma cholesterol in HDL measurement (mass/volume)Ordered By: Linda Cazares on 02-15-2023 Cholesterol in HDL [Mass/Vol] 31 mg/dL >40 [facility] Comment on above: The drugs N-Acetylcy steine and Metamizole may falsely depress this assay. Reference Range HDL <40 mg/dL Low HDL Cholesterol HDL >or= 60 mg/dL High HDL Cholesterol Serum or plasma cholesterol in VLDL measurement (mass/volume)Ordered By: Linda Cazares on 02-15-2023 Cholesterol in VLDL [Mass/Vol] [facility] Comment on above: Test not performed Serum or plasma creatinine m easurement (mass/volume)Ordered By: Linda Cazares on 02-15-2023 Creatinine [Mass/Vol] 1.12 mg/dL 0.70-1.30 [facility] Comment on above: The validity of the calculated GFR & GFRAA in patients over 70 years has not been determined. Clinical correlation is essential. Serum or plasma low density lipoprotein (LDL) cholesterol measurement (mass/volume)Ordered By: Linda Cazares on 02-15-2023 Cholesterol in LDL [Mass/Vol] [facility] Comment on above: Test not performed Serum or plasma urea nitroge n measurement (mass/volume)Ordered By: Linda Cazares on 02-15-2023 Urea nitrogen [Mass/Vol] 19 mg/dL 7-18 [facility] Thin prep Papanicolaou smear with manual screeningOrdered By: Linda Cazares on 02-15-2023 Thin prep Papanicolaou smear with manual screening 19 U/L 15-37 [facility] Comment on above: Slight Hemolysis, Re sult may be falsely increased. Thin prep Papanicolaou smear with manual screening 6 5-15 [facility] Vital Signs Date Time Vital Sign Value Performing Clinician [facility] 08-10-2024 10:47-0400 Body height 200.7 cm Saurabh Riddle MD Work Phone: [facility] 08-10-2024 10:47-0400 Body mass index (BMI) [Ratio] 28.16 kg/m2 Saurabh Riddle MD Work Phone: [facility] 08-10-2024 10:47-0400 Body weight 113.4 kg Saurabh Riddle MD Work Phone: [facility] 08-10-2024 10:47-0400 Diastolic blood pressure 80 mm[Hg] Saurabh Riddle MD Work Phone: [facility] 08-10-2024 10:47-0400 Heart rate 80 /min Saurabh Riddle MD Work Phone: [facility] 08-10-2024 10:47-0400 Systolic blood pressure 115 mm[Hg] Saurabh Riddle MD Work Phone: [facility] 07-12-2024 14:54-0400 Body height 200.7 cm P[address] 1 [facility] 07-12-2024 14:54-0400 Body mass index (BMI) [Ratio] 28.16 kg/m2 Pst 1 [facility] 07-12-2024 14:54-0400 Body temperature 97.5 [degF] Pst [address] [place] [address] 07-12-2024 14:54-0400 Body weight 113.4 kg Pst 1 [facility] 07-12-2024 14:54-0400 Diastolic blood pressure 80 mm[Hg] Pst 1 [facility] 07-12-2024 14:54-0400 Heart rate 78 /min Pst 1 [facility] 07-12-2024 14:54-0400 Respiratory rate 14 /min Pst [address] [place] [address] 07-12-2024 14:54-0400 SaO2% (BldA) [Mass fraction] 100 % Pst 1 [facility] 07-12-2024 14:54-0400 Systolic blood pressure 121 mm[Hg] Pst 1 [facility] 06-15-2024 07:57-0400 Body mass index (BMI) [Ratio] 28.16 kg/m2 Saurabh Riddle MD Work Phone: [facility] 06-15-2024 07:57-0400 Body weight 113.4 kg Saurabh Riddle MD Work Phone: [facility] 06-15-2024 07:57-0400 Diastolic blood pressure 79 mm[Hg] Saurahb Riddle MD Work Phone: [facility] 06-15-2024 07:57-0400 Heart rate 77 /min Saurabh Riddle MD Work Phone: [facility] 06-15-2024 07:57-0400 Systolic blood pressure 112 mm[Hg] Saurabh Riddle MD Work Phone: [facility] 01-11-2024 14:45-0500 Body height 200.7 cm Saurabh Riddle MD Work Phone: [facility] 01-11-2024 14:45-0500 Diastolic blood pressure 73 mm[Hg] Saurabh Riddle MD Work Phone: [facility] 01-11-2024 14:45-0500 Heart rate 79 /min Saurabh Riddle MD Work Phone: [facility] 01-11-2024 14:45-0500 Systolic blood pressure 108 mm[Hg] Saurabh Riddle MD Work Phone: [facility] 12-09-2023 10:04-0400 Body height 200.7 cm Saurabh Riddle MD Work Phone: [facility] 12-09-2023 10:04-0400 Body mass index (BMI) [Ratio] 28.16 kg/m2 Saurabh Riddle MD Work Phone: [facility] 12-09-2023 10:04-0400 Body weight 113.4 kg Saurabh Riddle MD Work Phone: [facility] 12-09-2023 10:04-0400 Diastolic blood pressure 84 mm[Hg] Saurabh Riddle MD Work Phone: [facility] 12-09-2023 10:04-0400 Heart rate 80 /min Saurabh Riddle MD Work Phone: [facility] 12-09-2023 10:04-0400 Systolic blood pressure 125 mm[Hg] Saurabh Riddle MD Work Phone: [facility] Encounters Encounter Date Encounter Type Care Provider Facility Start: 12-13-2024 ambulatory Linda Cazares Facility: [facility] Start: 11-20-2024 Encounter for genera l adult medical examination without abnormal findings Jaquan Flores [facility] Start: 11-09-2024 End: 11-09-[address] Linda Cazares DO Work Phone: -Laboratory Start: 11-09-2024 End: 11-09-2024 Patient encounter procedure Jaquan Flores DO -Laboratory Work Phone: Start: 11-09-2024 End: 11-09-2024 Patient encounter procedure Jaquan Flores DO -[facility] Work Phone: Start: 11-09-2024 End: 11-09-[address] Linda Cazares DO Work Phone: -[facility] Start: 11-09-2024 End: 11-09-2024 ambulatory Linda Cazares Facility:[facility] Start: 08-10-2024 End: 08-10-2024 Patient encounter procedure Saurabh Riddle MD Work Phone: [facility] Comment on above: Anal fissure (Primar y Dx) Start: 08-10-2024 End: 08-10-2024 ambulatory SAURABH RIDDLE Facility:[facility] Start: 07-19-2024 End: 07-19-2024 ambulatory SAURABH RIDDLE Facility:[facility] Start: 07-12-2024 End: 07-12-2024 Admission to establishment [facility] Pre Surgical Testing Start: 07-12-2024 End: 07-12-2024 ambulatory LINDA CAZARES Pre [facility] Testing Comment on above: Pre-op examination ( Primary Dx); Anal fistula Start: 07-12-2024 End: 07-12-2024 Preprocedural examination done Pst 1 [facility] Work Phone: Start: 07-12-2024 Encounter for other preprocedural examination SAURABH RIDDLE [facility] Start: 06-15-2024 End: 06-15-2024 Patient encounter procedure Saurabh Riddle MD Work Phone: [facility] Comment on above: Anal fistula (Primar y Dx) Start: 06-15-2024 End: 06-15-2024 ambulatory SAURABH RIDDLE Facility:[facility] Start: 05-23-2024 End: 05-23-2024 Telephone encounter Saurabh Riddle MD Work Phone: [facility] Comment on above: Appointment Start: 01-11-2024 End: 01-11-2024 Patient encounter procedure Saurabh Riddle MD Work Phone: [facility] Comment on above: Anal fistula (Primar y Dx) Start: 01-11-2024 End: 01-11-2024 ambulatory SAURABH RIDDLE Facility:[facility] Start: 12-27-2023 End: 12-27-2023 ambulatory SAURABHSANAZ DIAKAMRAN Facility:[facility] Start: 12-12-2023 End: 12-12-2023 Telephone encounter Saurabh Riddle MD Work Phone: [facility] Comment on above: Schedule Procedure Procedure (EUA, FIST ULOTOMY VS SETON/) Anal fistula (Primar y Dx) Start: 12-09-2023 End: 12-09-2023 Patient encounter procedure Saurabh Riddle MD Work Phone: [facility] Comment on above: Anal fistula (Primar y Dx) Start: 12-09-2023 End: 12-09-2023 ambulatory SAURABH RIDDLE Facility:[facility] Start: 02-15-2023 End: 02-15-2023 ambulatory [facility] Work Phone: Start: 02-15-2023 End: 02-15-2023 Patient encounter procedure [facility]-Everardo, Twila Chopra [facility] Procedures Date Procedure Procedure Detail Performing Clinician Start: 11-09-[address] Frances Cazares DO Work Phone: Comment on above: *Additional results available. Contact laboratory/see report*The atypical pANCA pattern has been observed in asignificant percentage of patients with ulcerative colitis,primary sclerosing cholangitis and autoimmune hepatitis.Performed at: - [facility] [address] [id number] Director: Derrick Duran PhD, Phone: [phone] at: - [facility] [address] [id number] Director: Luis Daniel Castillo MD, Phone: [phone] Start: 11-09-2024 Antibody to centrome re measurement Dr. Linda Cazares DO Work Phone: Comment on above: Previous reported re sult: TNP AIEdited by: INFCE on 11/13/24:0107 AMENDED REPORT 11/13/24 0107 ANTI-CENT B previously reported as: Test not performed Start: 11-09-2024 Antibody to extracta ble nuclear antigen measurement Dr. Linda Cazares DO Work Phone: Comment on above: Previous reported re sult: TNP AIEdited by: INFCE on 11/13/24:0107 AMENDED REPORT 11/13/24 0107 PALOMINO Ab previously reported as: Test not performed Start: 11-09-2024 Antibody to ELI-[address] Linda Cazares DO Work Phone: Comment on above: Previous reported re sult: TNP AIEdited by: INFCE on 11/13/24:0107 AMENDED REPORT 11/13/24 0107 ANTI-ELI previously reported as: Test not performed Start: 11-09-2024 Antibody to lupus La protein measurement Dr. Linda Cazares DO Work Phone: Start: 11-09-2024 Antibody to SS-A measurement Dr. Linda Cazares DO Work Phone: Start: 11-09-[address] Linda Cazares DO Work Phone: Comment on above: Previous reported re sult: TNP AIEdited by: JACKIE on 11/13/24:0107 AMENDED REPORT 11/13/24 010 ANTICHROMATIN previously reported as: Test not performed Start: 11-09-[address] Linda Cazares DO Work Phone: Start: 11-09-2024 Endomysial antibody IgA level Dr. Linda Cazares DO Work Phone: Start: 11-09-[address] Linda gomez DO Work Phone: Start: 11-09-[address] M measurement Dr[address] Linda Cazares DO Work Phone: Start: 11-09-2024 In-vitro immunologic test Dr. Linda Cazares DO Work Phone: Comment on above: QuantiFERON-TB Gold Plus is a qualitative indirect test forM tuberculosis infection (including disease) and isintended for use in conjunction with risk assessment,radiography, and other medical and diagnostic evaluations.The QuantiFERON-TB Gold Plus result is determined bysubtracting the Nil value from either TB antigen (Ag)value. The Mitogen tube serves as a control for the test. No response to M tub erculosis antigens detected.Infection with M tuberculosis is unlikely, but high riskindividuals should be considered for additional testing(ATS/IDSA/CDC Clinical Practice Guidelines, 2017). Thereference range is an Antigen minus Nil result of <0.35IU/mL.The specimen received for QuantiFERON testing was incubatedby the ordering institution. Specific procedures outlinedin our Directory of Services and in the package insert forthe QuantiFERON Gold (In Tube) test must be followed toenable for proper stimulation of cells for the productionof interferon gamma. Chemiluminescence immunoassaymethodology Start: 11-09-[address] fungal antibody [address] Linda Cazares DO Work Phone: Comment on above: Negative: <45 Equivo kalani: 45-50 Positive: >50 Start: 11-09-2024 JOURNAL ENTRY AUDIT CLERK antibody measurement Dr. Linda Cazares DO Work Phone: Comment on above: Previous reported re sult: TNP AIEdited by: JACKIE on 11/13/24:0107 AMENDED REPORT 11/13/24 010 JOURNAL ENTRY AUDIT CLERK Ab previously reported as: Test not performed Start: 11-09-2024 Radha gomez DO Work Phone: Plan of Treatment Date Care Activity Detail Author Start: 11-09-2024 Measurement of occul t blood in stool specimen using immunoassay [facility] Start: 11-09-2024 Protein measurement [facility] Start: 11-09-2024 [facility] Start: 10-29-2024 Influenza vaccination Influenz a Vaccine (Season Ended) [facility] Start: 08-10-2024 End: 08-10-2024 Patient encounter procedure 08/10/2024 11:00 AM EDT Office Visit [facility] [address] [place], [place] [address] Saurabh Riddle MD [address] [place], [place] [phone] Post Op EUA [facility] Comment on above: Post Op EUA Start: 07-19-2024 End: 07-19-2024 Admission to same day surgery center 07/19/2024 7:30 AM EDT - 07/19/2024 8:35 AM EDT Surgery [facility] [address] [place] [address] Saurabh Riddle MD [address] [place], [place] [id number] EXAM UNDER ANESTHESIA RECTAL [facility] Comment on above: EXAM UNDER ANESTHESI A RECTAL Start: 07-19-2024 End: 07-19-2024 Anrct xm surg req anes general spi/edrl dx EXAM UNDER ANESTHESIA RECTAL Anal fistula 07/19/2024 7:30 AM EDT [facility] Start: 07-19-2024 Subsequent hospital visit by physician 07/19/2024 7:30 AM EDT Hospital Encounter [facility] [address] [place] [address] Saurabh Riddle MD [address] [place], [place] [id number] Anal fistula [K60.30] [facility] Comment on above: Anal fistula [K60.30 ] Start: 07-19-2024 End: 07-19-2024 Tx anal fstl trans/supra/xtrasphnctrc incl seton ANAL FISTULOTOMY TRANSSPHINCTERIC W/ SETON DRAIN Anal fistula 07/19/2024 7:30 AM EDT [facility] Start: 06-15-2024 End: 06-15-2024 Patient encounter procedure 06/15/2024 8:00 AM EDT Office Visit [facility] [address] [place], [place] [id number] Saurabh Riddle MD [address] [place], [place] [id number] Follow back up for some bleeding in stool [facility] Comment on above: Follow back up for s ome bleeding in stool Start: 01-11-2024 End: 01-11-2024 Patient encounter procedure 01/11/2024 3:00 PM EST Office Visit [facility] [address] [facility] 3rd Floor [place] [phone] Saurabh Riddle MD [address] [place], [place] [id number] Post Op EUA [facility] Comment on above: Post Op EUA Start: 12-27-2023 End: 12-27-2023 Admission to same day surgery center 12/27/2023 11:45 AM EDT - 12/27/2023 2:00 PM EDT [facility] [address] [place] [address] Saurabh Riddle MD [address] [place], [place] [id number] EXAM UNDER ANESTHESIA RECTAL [facility] Comment on above: EXAM UNDER ANESTHESI A RECTAL Start: 12-27-2023 End: 12-27-2023 Anrct xm surg req anes general spi/edrl dx EXAM UNDER ANESTHESIA RECTAL Anal fistula 12/27/2023 11:45 AM EDT [facility] Start: 12-27-2023 Subsequent hospital visit by physician 12/27/2023 11:45 AM EDT Hospital Encounter [facility] [address] [place] [address] Saurabh Riddle MD [address] [place] [address] Anal fistula [K60.30] [facility] Comment on above: Anal fistula [K60.30 ] Start: 12-27-2023 End: 12-27-2023 Tx anal fstl trans/supra/xtrasphnctrc incl seton ANAL FISTULOTOMY TRANSSPHINCTERIC W/ SETON DRAIN Anal fistula 12/27/2023 11:45 AM EDT [facility] Start: 10-30-2023 Covid-19 Vaccine ( season) Covid-19 Vaccine ( season) [facility] Start: 10-30-2023 Influenza vaccination Influenza Vacc ine (#1) [facility] Start: 2018 Lipid panel Lipid Screening [facility] Start: 2002 Hepatitis B Vaccine (1 of 3 - 19+ 3-dose series) Hepatitis B Vaccine (1 of 3 - 19+ 3-dose series) [facility] Start: 2002 Urine microalbumin profile DTaP,Tdap,Td Vaccine (1 - Tdap) [facility] Start: 2001 Anxiety Screening Anxiety Screening [facility] Start: 2001 [facility] Start: 2001 Hepatitis C screening Hepatitis C [facility] Start: 2001 HIV screening HIV Screening [facility] C reactive protein [Mass/volume] in Serum or Plasma [facility] CBC W Auto Different ial panel - Blood [facility] Celiac disease screen [facility] Clostridioides diffi cile DNA [Presence] in Unspecified specimen by GENESIS with probe detection [facility] Comprehensive metabo lic 2000 panel - Serum or Plasma [facility] Elastase.pancreatic [Presence] in Stool [facility] Erythrocyte sedimentation rate [facility] Fat [Presence] in Stool [facility] H&P for surgery H&P FOR SURGERY Procedures Routine Anal fistula Ordered: 12/12/2023 [facility] Work Phone: Comment on above: Ordered: 12/12/2023 Immunoglobulin measurement [facility] In-vitro immunologic test [facility] Lactate dehydrogenas e measurement [facility] Lactoferrin [Presenc e] in Stool by Immunoassay [facility] Nucleic acid assay [facility] Thyroid stimulating hormone measurement [facility] Immunizations Immunization Date Immunization Notes Care Provider [facility] 12-27-2013 influenza, seasonal, injectable Saurabh Riddle MD Work Phone: [facility] 12-27-2013 influenza virus vaccine, unspecified formulation Saurabh Riddle MD Work Phone: [facility] Payers Date Payer Category Payer Unknown [id number] 2024 Self-pay [id number] 2023 Private Health Insurance [facility] CHOICE PLAN GENERIC [id number] 2023 Unknown .[id number] 2023 Unknown [id number] Unknown [id number] Unknown [id number] Unknown [id number] Unknown [id number] Unknown [id number] Social History Date Type Detail Facility Start: 02-15-2019 Tobacco smoking stat us MTIS Unknown if ever smoked [facility] Start: 02-15-2019 None [facility] Start: 02-15-2019 Spouse/ Signif icant Other;With Family [facility] Start: 02-15-2019 Non-smoker [facility] Start: 1985 Sex Assigned At Male W [facility] Start: 08-06-2023 End: 12-09-2023 Tobacco smoking status NHIS Never smoked tobacco [facility] Start: 12-09-2023 Tobacco use and exposure Smokeless tobacco non-user [facility] Start: 12-09-2023 End: 07-19-2024 Alcoholic beverage intake Current non-drinker of alcohol (finding) [facility] Start: 12-09-2023 End: 07-19-2024 History of Social function [facility] Start: 12-09-2023 End: 07-19-2024 Tobacco use panel [facility] National Score (1-100), lower number is lower risk 33 [facility] Start: 1985 Sex assigned at Not on file C [facility] Start: 07-11-2024 Gender identity Identifies as male gender (finding) [facility] Start: 07-11-2024 Sexual orientation Heterosexual (fin chichi) [facility] NEGATED: Highlighted rowStart: NINF History of tobacco use Passive smoker [facility] Clinical Notes 12-09-2023 to 11-09-2024 Note Date & Type Note Facility 11-09-2024 Evaluation note Diagnosis Onset Date Resolution Diarrhea acute October 7:29am [facility] Work Phone: 1(302) 636-607106-13-2025 NoteHNO ID: [id number] Author: SAURABH RIDDLE MD Service: ? Author Type: Physician Type: Progress Notes Filed: 08/10/2024 11:52 Note Text: Saurabh Riddle M.D. Colon AND Rectal Surgery [address] [facility], [address] [place] [address] SUBJECTIVE Libby Woods is a 39 year old White male status post lateral internal sphincterotomy HPI He is feeling well and does feel that things have healed up appropriately. He denies any new changes to his bowel habits or blood in his stool. Review of Systems Constitutional: Negative for chills, fever and weight loss. Respiratory: Negative for shortness of breath and wheezing. Cardiovascular: Negative for chest pain and palpitations. Gastrointestinal: Negative for abdominal pain, blood in stool, constipation, diarrhea, heartburn, melena, nausea and vomiting. All other systems reviewed and are negative. PAST MEDICAL HISTORY Diagnosis Date Anal fistula 12/09/2023 PAST SURGICAL HISTORY Procedure Laterality Date PAST SURGICAL HISTORY OF fistula VASECTOMY UNI/BI SPX W/POSTOP SEMEN EXAMS 10/11/2014 Social History Tobacco Use Smoking status: Never Passive exposure: Never Smokeless tobacco: Never Vaping Use Vaping status: Never Used Substance Use Topics Alcohol use: No Drug use: No FAMILY HISTORY Problem Relation Age of Onset Hypertension Father Diabetes Father The ROS, medical, surgical, family, and social history were reviewed by Saurabh Riddle MD ALLERGIES No Known Allergies Current Outpatient Medications Medication Sig docusate sodium (COLACE ORAL) Take by mouth. acetaminophen-codeine (TYLENOL-CODEINE #3) 300-30 mg per tablet Take 1 tablet by mouth every 6 hours as needed. LORazepam (ATIVAN) 1 mg tablet Take 2 tablets by mouth as directed. 1 HOUR PRIOR TO PROCEDURE No current facility-administered medications for this visit. OBJECTIVE BP 115/80 (BP Position: Sitting) Pulse 80 Ht 200.7 cm (6' 7) Wt 113.4 kg (250 lb) BMI 28.16 kg/m? BMI 28.16 kg/(m2) Physical Exam Constitutional: General: He is not in acute distress. Appearance: Normal appearance. He is not ill-appearing. Cardiovascular: Rate and Rhythm: Normal rate and regular rhythm. Heart sounds: No murmur heard. No friction rub. No gallop. Pulmonary: Effort: Pulmonary effort is normal. No respiratory distress. Breath sounds: Normal breath sounds. No wheezing or rales. Abdominal: General: There is no distension. Palpations: Abdomen is soft. There is no hepatomegaly. Tenderness: There is no abdominal tenderness. Musculoskeletal: General: No deformity. Normal range of motion. Skin: General: Skin is warm and dry. Findings: No rash. Neurological: Mental Status: He is alert and oriented to person, place, and time. Gait: Gait normal. Psychiatric: Mood and Affect: Mood normal. Judgment: Judgment normal. Perineum: Both the lateral side and the fissure site seem to have healed well and there is no persistent wound at this moment Plan ASSESSMENT/PLAN: 1. Anal fissure - ICD9: 565.0, ICD10: K60.2 It was hard to tell if he separately developed a fissure or if this was the nonhealing wound from his fistula surgery, but he seems to be doing well after lateral internal sphincterotomy and so long as he keeps on this tract there is no further treatment that I would expect to do. We will see him back on an as-needed basis. Follow up: Return for For any new issues or concerns. Saurabh Riddle M.D. Please Note: This office note has been created using Webcrumbz, a speech recognition software program, and may contain errors including punctuation, grammar, spelling, gender, and inappropriate words or phrases that pertain to the sytem.[facility]06-13-2025 History of Present illness Narrative* Saurabh Riddle MD - 08/10/2024 10:46 AM EDT Images from the original note were not included. Saurabh Riddle M.D. Colon & Rectal Surgery [address] [facility], [address] [place] [id number] SUBJECTIVE Libby Woods is a 39 year old White male status post lateral internal sphincterotomy HPI He is feeling well and does feel that things have healed up appropriately. He denies any new changes to his bowel habits or blood in his stool. Review of Systems Constitutional: Negative for chills, fever and weight loss. Respiratory: Negative for shortness of breath and wheezing. Cardiovascular: Negative for chest pain and palpitations. Gastrointestinal: Negative for abdominal pain, blood in stool, constipation, diarrhea, heartburn, melena, nausea and vomiting. All other systems reviewed and are negative. PAST MEDICAL HISTORY Diagnosis Date Anal fistula 12/09/2023 PAST SURGICAL HISTORY Procedure Laterality Date PAST SURGICAL HISTORY OF fistula VASECTOMY UNI/BI SPX W/POSTOP SEMEN EXAMS 10/11/2014 Social History Tobacco Use Smoking status: Never Passive exposure: Never Smokeless tobacco: Never Vaping Use Vaping status: Never Used Substance Use Topics Alcohol use: No Drug use: No FAMILY HISTORY Problem Relation Age of Onset Hypertension Father Diabetes Father The ROS, medical, surgical, family, and social history were reviewed by Saurabh iRddle MD ALLERGIES No Known Allergies Current Outpatient Medications Medication Sig docusate sodium (COLACE ORAL) Take by mouth. acetaminophen-codeine (TYLENOL-CODEINE #3) 300-30 mg per tablet Take 1 tablet by mouth every 6 hours as needed. LORazepam (ATIVAN) 1 mg tablet Take 2 tablets by mouth as directed. 1 HOUR PRIOR TO PROCEDURE No current facility-administered medications for this visit. OBJECTIVE BP 115/80 (BP Position: Sitting) Pulse 80 Ht 200.7 cm (6' 7) Wt 113.4 kg (250 lb) BMI 28.16 kg/m BMI 28.16 kg/(m^2) Physical Exam Constitutional: General: He is not in acute distress. Appearance: Normal appearance. He is not ill-appearing. Cardiovascular: Rate and Rhythm: Normal rate and regular rhythm. Heart sounds: No murmur heard. No friction rub. No gallop. Pulmonary: Effort: Pulmonary effort is normal. No respiratory distress. Breath sounds: Normal breath sounds. No wheezing or rales. Abdominal: General: There is no distension. Palpations: Abdomen is soft. There is no hepatomegaly. Tenderness: There is no abdominal tenderness. Musculoskeletal: General: No deformity. Normal range of motion. Skin: General: Skin is warm and dry. Findings: No rash. Neurological: Mental Status: He is alert and oriented to person, place, and time. Gait: Gait normal. Psychiatric: Mood and Affect: Mood normal. Judgment: Judgment normal. Perineum: Both the lateral side and the fissure site seem to have healed well and there is no persistent wound at this moment Plan ASSESSMENT/PLAN: 1. Anal fissure - ICD9: 565.0, ICD10: K60.2 It was hard to tell if he separately developed a fissure or if this was the nonhealing wound from his fistula surgery, but he seems to be doing well after lateral internal sphincterotomy and so long as he keeps on this tract there is no further treatment that I would expect to do. We will see him back on an as- needed basis. Follow up: Return for For any new issues or concerns. Saurabh Riddle M.D. Please Note: This office note has been created using Webcrumbz, a speech recognition software program, and may contain errors including punctuation, grammar, spelling, gender, and inappropriate words or phrases that pertain to the sytem. documented [facility] this [facility] NoteHNO ID: [id number] Author: ZAN LOPES APRN.BITA Service: ? Author Type: Nurse Practitioner Type: Progress Notes Filed: 07/13/2024 07:24 Note Text: Summary: PAT Reviewed patient's HANDP, no further pre-op concerns at this time, and patient has no pending optimizations.[facility]05-15-2025 History and physical note* Yaneth Mattson APRN.GEOPHYSICAL LABORATORY SUPERVISOR - 07/12/2024 3:00 PM EDT Images from the original note were not included. [facility] HISTORY AND PHYSICAL EXAMINATION SERVICE DATE: 07/12/2024 SERVICE TIME: 3:00 PM PRIMARY CARE PHYSICIAN: Linda Cazares, Assessment Patient has the following medical conditions which may affect young-operative course: Pre-op examination Medical conditions which may affect the perioperative course were address in today's visit. Anal fistula Surgery scheduled 07/19/24 ANESTHESIA FINDINGS: Intubation History: No history of difficult intubation. No abnormal airway history Significant Anesthesia Considerations: none Airway History: No history of difficult airway No abnormal airway history Romo Activity Status Index: METS: Do heavy work around the house, such as scrubbing floors, lifting or moving heavy furniture (8.00 METs) DASI Score: 8 Patient denies any chest pain or undue shortness of breath with the above physical activity. Clinical Frailty Scale: 2. Well ARISCAT Score: Age: <=50 Preoperative SpO2: >=96% Respiratory infection in the last month: No Preoperative anemia: No Surgical incision: peripheral Duration of surgery: <2 hrs Emergency procedure: No ARISCAT Score: 0 I - PHYSICAL EVALUATION AIRWAY Patient intubated: No. DENTAL Dental findings: teeth intact. II - ANESTHESIA PLAN Anesthetic Plan: MAC Beta Joaquin Monitoring Plan Post Procedure Analgesic Plan Prepared for Surgery: CONSULTS: Patient does not require consults for optimization at this time Planned Anesthetic: MAC The Following Tests/Procedures Have Been Initiated: No orders of the defined types were placed in this encounter. REASON FOR VISIT: Libby Woods is a 39 year old male who is scheduled for Procedure(s): EXAM UNDER ANESTHESIA RECTAL (N/A) FISTULOTOMY VS SETON (N/A) at the request of @REFPROV2@ for routine H&P. My final recommendation will be communicated back to the requesting physician by way of shared medical record or letter. Subjective The patient has the following: COVID-19 Immunization Status Current Care Gaps Covid-19 Vaccine ( season) Never done No completion, postpone, frequency change, or communication history exists for this topic. CHIEF COMPLAINT: The reason for this visit is to perform a comprehensive review of the patient's past medical history, assess their current health status and obtain any additional testing required based on anesthesia guidelines. We will also identify any potential anesthesia problems or contraindications to the planned procedure. HPI: Libby Woods is a 39 year old male who presents to [facility] for the above procedure. Patient reports a hx of perianal abscess with anal fistula. Reports 11/2023 s/p fistulotomy. Reports developed blood in his stool again, and at times a significant amount. Report pain and burning perineal pain. After discussing with surgeon, patient agrees to surgical intervention. Risk and benefits discussedby surgeon. Patient denies any other problems or concerns at this time. REVIEW OF SYSTEMS: General: Negative for: fever. Neurological: Negative for: delirium, dementia, seizures, TIA and strokes. Respiratory: Negative for: asthma, COPD, pneumonia within 6 weeks, URI < 2 weeks and obstructive sleep apnea. Cardiovascular: Negative for: atrial fibrillation, CAD, chest pain, DVT/PE and recent TN. GI: Negative for: abdominal pain, dysphagia, hepatitis, nausea, vomiting and ETOH >2 drinks/day. : Negative for: dysuria, hematuria, urinary incontinence and renal failure. Endocrine: No history of diabetes. Has not taken steroids within the past 30 days. No history of endocrinological symptoms or problems. Negative for: diabetes mellitus and hypothyroidism. Hematology: Negative for: anemia, factor V Leiden, hemophilia and von Willebrand disease. Oncology: No history of CA metastasis, chemo within 30 days, or radiotherapy within 90 days. No history of oncological symptoms or problems. Psych: No history of psychiatric symptoms or problems. Negative for: anxiety and depression. Musculoskeletal: Negative for joint pain or swelling, back pain or muscle pain. Skin: Negative for lesions, rash and itching. Implanted Devices: No implanted devices. PAST MEDICAL HISTORY Diagnosis Date Anal fistula 12/09/2023 PAST SURGICAL HISTORY Procedure Laterality Date PAST SURGICAL HISTORY OF fistula VASECTOMY UNI/BI SPX W/POSTOP SEMEN EXAMS 10/11/2014 FAMILY HISTORY Problem Relation Age of Onset Hypertension Father Diabetes Father Social History Tobacco Use Smoking status: Never Passive exposure: Never Smokeless tobacco: Never Vaping Use Vaping status: Never Used Substance Use Topics Alcohol use: No Drug use: No Prior to Admission medications as of 07/12/24 1451 Medication Sig Last Dose Taking docusate sodium (COLACE ORAL) Take by mouth. Patient not taking: Reported on 06/15/2024 acetaminophen-codeine (TYLENOL-CODEINE #3) 300-30 mg per tablet Take 1 tablet by mouth every 6 hours as needed. Patient not taking: Reported on 12/09/2023 LORazepam (ATIVAN) 1 mg tablet Take 2 tablets by mouth as directed. 1 HOUR PRIOR TO PROCEDURE Patient not taking: Reported on 12/09/2023 No medication comments found. ALLERGIES No Known Allergies Objective PHYSICAL EXAM: General: alert and oriented and healthy appearance. Pertinent negatives noted - not distressed. Skin: normal color, no rash or lesions. HEENT: No additional findings for patient's neck. Cardiovascular: regular rate and rhythm, normal S1 and S2, no rub, murmurs, or gallop. Respiratory: normal breath sounds, no wheezes or crackles. No chest wall deformity or tenderness. Abdomen: bowel sounds present and soft. Pertinent negatives noted - not tender. Extremities: no deformity, no edema or tenderness, no joint swelling or clubbing. Neurological: normal cognition and motor skills. Gait normal. No weakness or sensory deficit. PAIN ASSESSMENT: VITALS: BP 121/80 Pulse 78 Temp 97.5 Resp 14 Ht 6' 7 (2.01m) Wt 250 lb (113.4kg) SpO2 100% BMI 28.15 kg/(m^2). Diagnostic tests reviewed for today's visit: Lab Value Units Date High Low HB No results within date range. HCT No results within date range. WBC No results within date range. PLT No results within date range. NA No results within date range. K No results within date range. GLUC No results within date range. BUN No results within date range. CREAT No results within date range. PTSEC No results within date range. INR No results within date range. APTT No results within date range. ALT No results within date range. AST No results within date range. TBILI No results within date range. TSH No results within date range. Lab Value Units Date High Low HCGQT No results within date range. UHCG No results within date range. HCG, BODY* No results within date range. Lab Value Units Date High Low ABORHD No results within date range. ABSCREEN No results within date range. No results found for: HBA1C No results found for this or any previous visit (from the past 8760 hours). No results found for this or any previous visit (from the past 30179 hours). PATIENT DENIES Blood thinners The Following Tests/Procedures Have Been Initiated: No orders per surgeon in epic Assessment/Plan Diagnosis: Anal fistula [K60.30] PLAN Planned Procedure: Procedure(s): EXAM UNDER ANESTHESIA RECTAL (N/A) FISTULOTOMY VS SETON (N/A) Instructions Given to Patient: Instructions located in the after visit summary. Patient given verbal and written preop instructions and voices comprehension and compliance. I spent a total of 40 minutes on the date of the service which included preparing to see the patient, [id number] patient care, completing clinical documentation, obtaining and/or reviewing separately obtained history, performing a medically appropriate examination, and counseling and educating the patient/family/caregiver. SIGNATURE: Yaneth Mattson APRN.CNP PATIENT NAME: Libby Woods DATE: July 12, 2024 TIME: 3:00 PM PAGER/CONTACT #: [facility]05-15-[facility] History and physical note* Yaneth Mattson APRN.CNP - 07/12/2024 3:00 PM EDT Images from the original note were not included. [facility] HISTORY AND PHYSICAL EXAMINATION SERVICE DATE: 07/12/2024 SERVICE TIME: 3:00 PM PRIMARY CARE PHYSICIAN: Linda Cazares DO Assessment Patient has the following medical conditions which may affect young-operative course: Pre-op examination Medical conditions which may affect the perioperative course were address in today's visit. Anal fistula Surgery scheduled 07/19/24 ANESTHESIA FINDINGS: Intubation History: No history of difficult intubation. No abnormal airway history Significant Anesthesia Considerations: none Airway History: No history of difficult airway No abnormal airway history Romo Activity Status Index: METS: Do heavy work around the house, such as scrubbing floors, lifting or moving heavy furniture (8.00 METs) DASI Score: 8 Patient denies any chest pain or undue shortness of breath with the above physical activity. Clinical Frailty Scale: 2. Well ARISCAT Score: Age: <=50 Preoperative SpO2: >=96% Respiratory infection in the last month: No Preoperative anemia: No Surgical incision: peripheral Duration of surgery: <2 hrs Emergency procedure: No ARISCAT Score: 0 I - PHYSICAL EVALUATION AIRWAY Patient intubated: No. DENTAL Dental findings: teeth intact. II - ANESTHESIA PLAN Anesthetic Plan: MAC Beta Joaquin Monitoring Plan Post Procedure Analgesic Plan Prepared for Surgery: CONSULTS: Patient does not require consults for optimization at this time Planned Anesthetic: MAC The Following Tests/Procedures Have Been Initiated: No orders of the defined types were placed in this encounter. REASON FOR VISIT: Libby Woods is a 39 year old male who is scheduled for Procedure(s): EXAM UNDER ANESTHESIA RECTAL (N/A) FISTULOTOMY VS SETON (N/A) at the request of DrFrances @[email or web address]@ for routine H&P. My final recommendation will be communicated back to the requesting physician by way of shared medical record or letter. Subjective The patient has the following: COVID-19 Immunization Status Current Care Gaps Covid-19 Vaccine (2023- season) Never done No completion, postpone, frequency change, or communication history exists for this topic. CHIEF COMPLAINT: The reason for this visit is to perform a comprehensive review of the patient's past medical history, assess their current health status and obtain any additional testing required based on anesthesia guidelines. We will also identify any potential anesthesia problems or contraindications to the planned procedure. HPI: Libby Woods is a 39 year old male who presents to [facility] for the above procedure. Patient reports a hx of perianal abscess with anal fistula. Reports 11/2023 s/p fistulotomy. Reports developed blood in his stool again, and at times a significant amount. Report pain and burning perineal pain. After discussing with surgeon, patient agrees to surgical intervention. Risk and benefits discussedby surgeon. Patient denies any other problems or concerns at this time. REVIEW OF SYSTEMS: General: Negative for: fever. Neurological: Negative for: delirium, dementia, seizures, TIA and strokes. Respiratory: Negative for: asthma, COPD, pneumonia within 6 weeks, URI < 2 weeks and obstructive sleep apnea. Cardiovascular: Negative for: atrial fibrillation, CAD, chest pain, DVT/PE and recent TN. GI: Negative for: abdominal pain, dysphagia, hepatitis, nausea, vomiting and ETOH >2 drinks/day. : Negative for: dysuria, hematuria, urinary incontinence and renal failure. Endocrine: No history of diabetes. Has not taken steroids within the past 30 days. No history of endocrinological symptoms or problems. Negative for: diabetes mellitus and hypothyroidism. Hematology: Negative for: anemia, factor V Leiden, hemophilia and von Willebrand disease. Oncology: No history of CA metastasis, chemo within 30 days, or radiotherapy within 90 days. No history of oncological symptoms or problems. Psych: No history of psychiatric symptoms or problems. Negative for: anxiety and depression. Musculoskeletal: Negative for joint pain or swelling, back pain or muscle pain. Skin: Negative for lesions, rash and itching. Implanted Devices: No implanted devices. PAST MEDICAL HISTORY Diagnosis Date Anal fistula 12/09/2023 PAST SURGICAL HISTORY Procedure Laterality Date PAST SURGICAL HISTORY OF fistula VASECTOMY UNI/BI SPX W/POSTOP SEMEN EXAMS 10/11/2014 FAMILY HISTORY Problem Relation Age of Onset Hypertension Father Diabetes Father Social History Tobacco Use Smoking status: Never Passive exposure: Never Smokeless tobacco: Never Vaping Use Vaping status: Never Used Substance Use Topics Alcohol use: No Drug use: No Prior to Admission medications as of 07/12/24 1451 Medication Sig Last Dose Taking docusate sodium (COLACE ORAL) Take by mouth. Patient not taking: Reported on 06/15/2024 acetaminophen-codeine (TYLENOL-CODEINE #3) 300-30 mg per tablet Take 1 tablet by mouth every 6 hours as needed. Patient not taking: Reported on 12/09/2023 LORazepam (ATIVAN) 1 mg tablet Take 2 tablets by mouth as directed. 1 HOUR PRIOR TO PROCEDURE Patient not taking: Reported on 12/09/2023 No medication comments found. ALLERGIES No Known Allergies Objective PHYSICAL EXAM: General: alert and oriented and healthy appearance. Pertinent negatives noted - not distressed. Skin: normal color, no rash or lesions. HEENT: No additional findings for patient's neck. Cardiovascular: regular rate and rhythm, normal S1 and S2, no rub, murmurs, or gallop. Respiratory: normal breath sounds, no wheezes or crackles. No chest wall deformity or tenderness. Abdomen: bowel sounds present and soft. Pertinent negatives noted - not tender. Extremities: no deformity, no edema or tenderness, no joint swelling or clubbing. Neurological: normal cognition and motor skills. Gait normal. No weakness or sensory deficit. PAIN ASSESSMENT: VITALS: BP 121/80 Pulse 78 Temp 97.5 Resp 14 Ht 6' 7 (2.01m) Wt 250 lb (113.4kg) SpO2 100% BMI 28.15 kg/(m^2). Diagnostic tests reviewed for today's visit: Lab Value Units Date High Low HB No results within date range. HCT No results within date range. WBC No results within date range. PLT No results within date range. NA No results within date range. K No results within date range. GLUC No results within date range. BUN No results within date range. CREAT No results within date range. PTSEC No results within date range. INR No results within date range. APTT No results within date range. ALT No results within date range. AST No results within date range. TBILI No results within date range. TSH No results within date range. Lab Value Units Date High Low HCGQT No results within date range. UHCG No results within date range. HCG, BODY* No results within date range. Lab Value Units Date High Low ABORHD No results within date range. ABSCREEN No results within date range. No results found for: HBA1C No results found for this or any previous visit (from the past 8760 hours). No results found for this or any previous visit (from the past 84385 hours). PATIENT DENIES Blood thinners The Following Tests/Procedures Have Been Initiated: No orders per surgeon in [facility] Assessment/Plan Diagnosis: Anal fistula [K60.30] PLAN Planned Procedure: Procedure(s): EXAM UNDER ANESTHESIA RECTAL (N/A) FISTULOTOMY VS SETON (N/A) Instructions Given to Patient: Instructions located in the after visit summary. Patient given verbal and written preop instructions and voices comprehension and compliance. I spent a total of 40 minutes on the date of the service which included preparing to see the patient, [id number] patient care, completing clinical documentation, obtaining and/or reviewing separately obtained history, performing a medically appropriate examination, and counseling and educating the patient/family/caregiver. SIGNATURE: Yaneth Mattson APRN.CNP PATIENT NAME: Libby Woods DATE: July 12, 2024 TIME: 3:00 PM PAGER/CONTACT #: documented in this encounterCh[facility] Instructions* Patient Instructions* Yaneth Mattson APRN.GEOPHYSICAL LABORATORY SUPERVISOR - 07/12/2024 9:46 AM EDT PATIENT PREOPERATIVE INSTRUCTIONS Your surgeon has scheduled for your procedure at this surgery center: [facility]: [phone], [address] [facility] [address] [place], [place] [id number] Please read below carefully for your personalized instructions. Surgery Date:07/19/24 Your surgeon's office will provide you with your ARRIVAL TIME for surgery. - If you have not received an arrival time by the afternoon before your surgery date, please followup with your surgeon's office. - If you are scheduled for Tuesday surgery, please make sure you have your arrival time by Tuesday afternoon. - Please be aware that emergency situations arise, which may delay or change your surgical time. Ifthis happens, your surgeon's office will notify you as soon as possible and regret any inconvenience. Dietary Restrictions: - Nothing to eat or drink after midnight except for a sip of water with approved medications. This is important because otherwise your surgery may have to be cancelled. Blood Thinning Medications: - Stop NSAIDS (Ibuprofen, Advil, Aleve, Motrin, Celebrex, Mobic, etc.) 7 days before surgery, or asdirected by your surgeon. You may take Tylenol (Acetaminophen) or any of your pain medications that do not contain aspirin orNSAIDS as needed. IF YOU TAKE ANY OF THE FOLLOWING BLOOD THINNERS, PLEASE CONTACT YOUR SURGEON AND THE PHYSICIAN WHO PRESCRIBES IT FOR YOU IN ORDER TO GET PERIOPERATIVE INSTRUCTIONS SOON POSSIBLE. BLOOD THINNERS: Aspirin , Coumadin, Plavix, Eliquis, Pradaxa, Xarelto, Lovenox, Brilinta, Effient, Savaysa, Arixtra, etc - Stop Vitamin E, fish oil, multivitamins, Marijuana, CBD oil and other over the counter herbals and dietary supplements 7 days before surgery. - This would not apply to cancer patients who are prescribed Marinol or any other prescription formon marijuana or CBD. Approved medications to take the morning of surgery with a sip of water: BP, Heart, seizure, thyroid, psych and pain medications. Use inhalers as prescribed. Please bring inhalers. HOLD - DA inhibitors (Angiotensin-converting enzyme inhibitors) and ARBs (Angiotensin II receptor blockers) Day of surgery. Use inhalers as prescribed. Please bring inhalers. Weight loss medications: - Sympathomimetics such as Adipex-P (Phentermine): Stop 4 days before surgery. - Contrave (Naltrexone/Bupropion) Hold 2-3 days. - Qsymia (Phentermine/Topiramate - Please contact your prescribing provider for Pre op directions. (Depending on the patients dose this medication may need tapered off. They should get pre-op directions from their prescribing provider.) - GLP-1 Agonists (oral and injectables) Hold 7 days - Adlyxin (lixisenatide), Bydureon BCise (exenatide suspension), Byetta (exenatide), Mounjaro (tirzepatide), Ozempic (semaglutide injection), Rybelsus (semaglutide tablets), Tanzeum (albiglutide), Trulicity (dulaglutide), Victoza (liraglutide), Wegovy (semaglutide), Saxenda (liraglutide), Xultophy (degludec/liraglutide) If you start any new medications after today's visit, please contact the surgeon's office. Important Reminders: - If you have a stimulator, implant or pump that requires a remote, please bring the remote with you day of surgery. - If you use CPAP/BIPAP, bring the machine with you to the surgery center. - If you are prescribed inhalers for breathing, continue using them AND bring them to the surgery center. - Candy, mints, gum and tobacco products are NOT permitted the morning of surgery. - Hearing aids, dentures and glasses may be worn the morning of surgery. - NO jewelry, body piercings, makeup, hairpins or contacts are to be worn the day of surgery. - Oral hygiene and a shower or bath is required the evening before or the morning of surgery. - NO lotion, creams, powders or deodorants on the skin the day of surgery. - Wear loose, comfortable clothing that will accommodate bandages. - Your length of stay will be determined by your surgeon. - You will need to have someone else (Family or friend) to drive you home once discharged from the hospital. You cannot drive yourself home after surgery. - YOU MUST HAVE A RESPONSIBLE METAL SASH SETTER TAKE YOU HOME. A ACCOUNT MANAGER RELIEF, CAB OR UBER METAL SASH SETTER CANNOT BE MADEA RESPONSIBLE METAL SASH SETTER. - If you are undergoing an outpatient procedure you must have someone drive you home and stay with you for the first 24 hours. Your ride home must be at least 18 years old or older. Your surgery may be cancelled if you do not have someone to drive you home or take care of you. - You cannot stay in a hotel alone after an outpatient surgery. - It is recommended patients have a 72-hour period between getting their vaccine and the date of surgery. Visitation: [facility] [place] Pre-Surgery area - 1 visitor at a time due to limited space. PACU recovery area - No visitors due to limited space unless patient is a minor due to limited space. If you develop symptoms such as a fever, cold, or flu, or have other changes to your health within TWO DAYS of scheduled surgery or the morning of surgery, please contact the surgeon's office. Personal Belongings: - Leave ALL valuables and money at home or with family members. - You will need a form of ID and insurance card to check in the morning of surgery. - If you already have an Advance Directive, please fax a copy to [phone] or Sarah BONE at [phone] or email to for it to be added to your chart. If you do not have an Advance Directive, you can find the appropriate form and more information at [email or web address]. We recommend that you complete the Advance Directive form found on the website and bring it with you the day of your surgery. It can be witnessed and scanned into your chart that day. Yaneth Mattson APRN.CNP 07/12/24 documented in this encounterCh[facility]04-18-[facility]25 NoteHNO ID: [id number] Author: SAURABH RIDDLE MD Service: ? Author Type: Physician Type: Progress Notes Filed: 06/15/2024 09:31 Note Text: Saurabh Riddle M.D. Colon AND Rectal Surgery 1 [facility], [address] [place] [id number] SUBJECTIVE Libby Woods is a 39 year old White male with perianal fistula HPI After his last surgery, he slowly felt better for about 2 months, but then in February and especially March he began to have issues again that were fairly similar. He described first having some blood in his stool, and this would come and go but could be a significant amount. He then began to have a pain that was similar to that before his prior surgery, a dull and sometimes burning perineal pain. For the last 2 weeks these things both improved and he is not having any bleeding and the pain is mostly gone Review of Systems Constitutional: Negative for chills, fever and weight loss. HENT: Negative for congestion, ear pain, hearing loss, sinus pain and sore throat. Eyes: Negative for blurred vision, double vision and pain. Respiratory: Negative for cough, shortness of breath and wheezing. Cardiovascular: Negative for chest pain, palpitations and leg swelling. Gastrointestinal: Negative for abdominal pain, blood in stool, constipation, diarrhea, heartburn, nausea and vomiting. Genitourinary: Negative for dysuria, frequency and urgency. Musculoskeletal: Negative for back pain, joint pain and neck pain. Skin: Negative for itching and rash. Neurological: Negative for dizziness, weakness and headaches. Endo/Heme/Allergies: Negative for environmental allergies. Does not bruise/bleed easily. Psychiatric/Behavioral: Negative for depression and memory loss. The patient is not nervous/anxious and does not have insomnia. PAST MEDICAL HISTORY Diagnosis Date Anal fistula 12/09/2023 PAST SURGICAL HISTORY Procedure Laterality Date VASECTOMY UNI/BI SPX W/POSTOP SEMEN EXAMS 10/11/2014 Social History Tobacco Use Smoking status: Never Passive exposure: Never Smokeless tobacco: Never Substance Use Topics Alcohol use: No Drug use: No No family history on file. The ROS, medical, surgical, family, and social history were reviewed by Saurabh Riddle MD ALLERGIES No Known Allergies Current Outpatient Medications Medication Sig docusate sodium (COLACE ORAL) Take by mouth. acetaminophen-codeine (TYLENOL-CODEINE #3) 300-30 mg per tablet Take 1 tablet by mouth every 6 hours as needed. (Patient not taking: Reported on 12/09/2023) LORazepam (ATIVAN) 1 mg tablet Take 2 tablets by mouth as directed. 1 HOUR PRIOR TO PROCEDURE (Patient not taking: Reported on 12/09/2023) No current facility-administered medications for this visit. OBJECTIVE There were no vitals taken for this visit. No weight on file for this encounter. Physical Exam Constitutional: General: He is not in acute distress. Appearance: Normal appearance. He is not ill-appearing. Cardiovascular: Rate and Rhythm: Normal rate and regular rhythm. Heart sounds: No murmur heard. No friction rub. No gallop. Pulmonary: Effort: Pulmonary effort is normal. No respiratory distress. Breath sounds: Normal breath sounds. No wheezing or rales. Abdominal: General: There is no distension. Palpations: Abdomen is soft. There is no hepatomegaly. Tenderness: There is no abdominal tenderness. Musculoskeletal: General: No deformity. Normal range of motion. Skin: General: Skin is warm and dry. Findings: No rash. Neurological: Mental Status: He is alert and oriented to person, place, and time. Gait: Gait normal. Psychiatric: Mood and Affect: Mood normal. Judgment: Judgment normal. Perineum: Anoscopy: The patient was placed in left lateral position. On external exam there is some thin skin in the anterior midline about 5 mm outside the anal verge, no clear sinus tract. There is also some granulation tissue in the wound just inside the anal verge which is not fully healed. On digital rectal exam with a lubricated finger he has normal tone, normal squeeze, no palpable masses but there is some abnormal palpable anoderm in the anterior midline After digital exam, the lubricated scope was easily inserted to 7 cm. There is some granulation tissue and a small friable polypoid bit of tissue at the wound in the anterior midline. It has visual appearance like a fissure with some heaped granulation tissue Saurabh Riddle MD 8:19 AM 06/15/24 Plan ASSESSMENT/PLAN: 1. Anal fistula - ICD9: 565.1, ICD10: K60.30 Is likely there is still some residual from his fissure that we did not find the first time, although I did discuss with him both treatment options for this as well as the possibility of a anal fissure since this is what it looks like visually at the moment. For this we discussed the possibility of a sphincterotomy although I think we (more content not included)...[facility] [id number] History of Present illness Narrative* Saurabh Riddle MD - 06/15/2024 7:56 AM EDT Images from the original note were not included. Saurabh Riddle M.D. Colon & Rectal Surgery 1 [facility], [address] [place] [address] SUBJECTIVE Libby Woods is a 39 year old White male with perianal fistula HPI After his last surgery, he slowly felt better for about 2 months, but then in February and especially March he began to have issues again that were fairly similar. He described first having some blood in his stool, and this would come and go but could be a significant amount. He then began to have a pain that was similar to that before his prior surgery, a dull and sometimes burning perineal pain. For the last 2 weeks these things both improved and he is not having any bleeding and the pain is mostly gone Review of Systems Constitutional: Negative for chills, fever and weight loss. HENT: Negative for congestion, ear pain, hearing loss, sinus pain and sore throat. Eyes: Negative for blurred vision, double vision and pain. Respiratory: Negative for cough, shortness of breath and wheezing. Cardiovascular: Negative for chest pain, palpitations and leg swelling. Gastrointestinal: Negative for abdominal pain, blood in stool, constipation, diarrhea, heartburn, nausea and vomiting. Genitourinary: Negative for dysuria, frequency and urgency. Musculoskeletal: Negative for back pain, joint pain and neck pain. Skin: Negative for itching and rash. Neurological: Negative for dizziness, weakness and headaches. Endo/Heme/Allergies: Negative for environmental allergies. Does not bruise/bleed easily. Psychiatric/Behavioral: Negative for depression and memory loss. The patient is not nervous/anxiousand does not have insomnia. PAST MEDICAL HISTORY Diagnosis Date Anal fistula 12/09/2023 PAST SURGICAL HISTORY Procedure Laterality Date VASECTOMY UNI/BI SPX W/POSTOP SEMEN EXAMS 10/11/2014 Social History Tobacco Use Smoking status: Never Passive exposure: Never Smokeless tobacco: Never Substance Use Topics Alcohol use: No Drug use: No No family history on file. The ROS, medical, surgical, family, and social history were reviewed by Saurabh Riddle MD ALLERGIES No Known Allergies Current Outpatient Medications Medication Sig docusate sodium (COLACE ORAL) Take by mouth. acetaminophen-codeine (TYLENOL-CODEINE #3) 300-30 mg per tablet Take 1 tablet by mouth every 6 hours as needed. (Patient not taking: Reported on 12/09/2023) LORazepam (ATIVAN) 1 mg tablet Take 2 tablets by mouth as directed. 1 HOUR PRIOR TO PROCEDURE (Patient not taking: Reported on 12/09/2023) No current facility-administered medications for this visit. OBJECTIVE There were no vitals taken for this visit. No weight on file for this encounter. Physical Exam Constitutional: General: He is not in acute distress. Appearance: Normal appearance. He is not ill-appearing. Cardiovascular: Rate and Rhythm: Normal rate and regular rhythm. Heart sounds: No murmur heard. No friction rub. No gallop. Pulmonary: Effort: Pulmonary effort is normal. No respiratory distress. Breath sounds: Normal breath sounds. No wheezing or rales. Abdominal: General: There is no distension. Palpations: Abdomen is soft. There is no hepatomegaly. Tenderness: There is no abdominal tenderness. Musculoskeletal: General: No deformity. Normal range of motion. Skin: General: Skin is warm and dry. Findings: No rash. Neurological: Mental Status: He is alert and oriented to person, place, and time. Gait: Gait normal. Psychiatric: Mood and Affect: Mood normal. Judgment: Judgment normal. Perineum: Anoscopy: The patient was placed in left lateral position. On external exam there is some thin skin in the anterior midline about 5 mm outside the anal verge,no clear sinus tract. There is also some granulation tissue in the wound just inside the anal vergewhich is not fully healed. On digital rectal exam with a lubricated finger he has normal tone, normal squeeze, no palpable masses but there is some abnormal palpable anoderm in the anterior midline After digital exam, the lubricated scope was easily inserted to 7 cm. There is some granulation tissue and a small friable polypoid bit of tissue at the wound in the anterior midline. It has visual appearance like a fissure with some heaped granulation tissue Saurabh Riddle MD 8:19 AM 06/15/24 Plan ASSESSMENT/PLAN: 1. Anal fistula - ICD9: 565.1, ICD10: K60.30 Is likely there is still some residual from his fissure that we did not find the first time, although I did discuss with him both treatment options for this as well as the possibility of a anal fissure since this is what it looks like visually at the moment. For this we discussed the possibility ofa sphincterotomy although I think we would be more looking at doing a fistulotomy again trying to find any remaining fistula which was not treated last time. INFORMED CONSENT Libby Woods Medical Record: [id number] Date: 06/15/2024 Procedure: Exam under anesthesia with fistulotomy versus seton versus lateral internal sphincterotomy The risks, benefits and anticipated outcomes of the procedure, the risks and benefits of the alternatives to the procedure and the roles and tasks of the personnel to be involved were discussed with the patient and the patient consents to the procedure and agrees to proceed. I verify that I personally obtained Libby Woods's consent. Saurabh Riddle MD Dept of [facility] [place] Follow up: No follow-ups on file. Saurabh Riddle M.D. Please Note: This office note has been created using [employer]crumbz, a speech recognition software program, and may contain errors including punctuation, grammar, spelling, gender, and inappropriate words or phrases that pertain to the sytem. documented in this encounterChillicothe Hospital03-26-2025 Telephone encounter Note * Telephone Encounter - Marni Bolanos - 05/23/2024 9:24 AM EDT The patient has been scheduled for a office visit for 06/15/24 with . Marni Bolanos [facility]03-26-[facility]25 Miscellaneous Notes* Telephone Encounter - Marni Bolanos - 05/23/2024 9:24 AM EDT The patient has been scheduled for a office visit for 06/15/24 with . Marni Bolanos documented in this encounterChillicothe Hospital11-13-2024 NoteHNO ID: [id number] Author: SAURABH RIDDLE MD Service: ? Author Type: Physician Type: Progress Notes Filed: 01/11/2024 15:24 Note Text: Saurabh Riddle M.D. Colon AND Rectal Surgery 1 [facility], [address] [place] [address] SUBJECTIVE Libby Woods is a 39 year old White male s/p fistulotomy HPI He is generally doing well, a little bit of pain still and some occasional bleeding but this is all improving. Review of Systems Constitutional: Negative for chills, fever and weight loss. HENT: Negative for congestion, ear pain, hearing loss, sinus pain and sore throat. Eyes: Negative for blurred vision, double vision and pain. Respiratory: Negative for cough, shortness of breath and wheezing. Cardiovascular: Negative for chest pain, palpitations and leg swelling. Gastrointestinal: Negative for abdominal pain, blood in stool, constipation, diarrhea, heartburn, nausea and vomiting. Genitourinary: Negative for dysuria, frequency and urgency. Musculoskeletal: Negative for back pain, joint pain and neck pain. Skin: Negative for itching and rash. Neurological: Negative for dizziness, weakness and headaches. Endo/Heme/Allergies: Negative for environmental allergies. Does not bruise/bleed easily. Psychiatric/Behavioral: Negative for depression and memory loss. The patient is not nervous/anxious and does not have insomnia. PAST MEDICAL HISTORY Diagnosis Date Anal fistula 12/09/2023 PAST SURGICAL HISTORY Procedure Laterality Date VASECTOMY UNI/BI SPX W/POSTOP SEMEN EXAMS 10/11/2014 Social History Tobacco Use Smoking status: Never Passive exposure: Never Smokeless tobacco: Never Substance Use Topics Alcohol use: No Drug use: No History reviewed. No pertinent family history. The ROS, medical, surgical, family, and social history were reviewed by Saurabh Riddle MD ALLERGIES No Known Allergies Current Outpatient Medications Medication Sig docusate sodium (COLACE ORAL) Take by mouth. acetaminophen-codeine (TYLENOL-CODEINE #3) 300-30 mg per tablet Take 1 tablet by mouth every 6 hours as needed. (Patient not taking: Reported on 12/09/2023) LORazepam (ATIVAN) 1 mg tablet Take 2 tablets by mouth as directed. 1 HOUR PRIOR TO PROCEDURE (Patient not taking: Reported on 12/09/2023) No current facility-administered medications for this visit. OBJECTIVE BP 108/73 (BP Site: Left Arm, BP Position: Sitting, BP Cuff Size: Large Adult) Pulse 79 Ht 200.7 cm (6' 7) BMI 28.16 kg/m? No weight on file for this encounter. Physical Exam Constitutional: General: He is not in acute distress. Appearance: Normal appearance. He is not ill-appearing. Abdominal: General: There is no distension. Palpations: Abdomen is soft. Tenderness: There is no abdominal tenderness. Neurological: Mental Status: He is alert and oriented to person, place, and time. Psychiatric: Mood and Affect: Mood and affect normal. Judgment: Judgment normal. Perineum: Appropriately healing fistulotomy site Plan ASSESSMENT/PLAN: 1. Anal fistula - ICD9: 565.1, ICD10: K60.30 He is doing well we will plan to see him back on an as-needed basis in the future Follow up: No follow-ups on file. Saurabh Riddle M.D. Please Note: This office note has been created using Webcrumbz, a speech recognition software program, and may contain errors including punctuation, grammar, spelling, gender, and inappropriate words or phrases that pertain to the sytem.[facility]11-13-2024 History of Present illness Narrative* Saurabh Riddle MD - 01/11/2024 2:42 PM EST Saurabh Riddle M.D. Colon & Rectal Surgery 1 [facility], [address] [place] [id number] SUBJECTIVE Libby Woods is a 39 year old White male s/p fistulotomy HPI He is generally doing well, a little bit of pain still and some occasional bleeding but this is allimproving. Review of Systems Constitutional: Negative for chills, fever and weight loss. HENT: Negative for congestion, ear pain, hearing loss, sinus pain and sore throat. Eyes: Negative for blurred vision, double vision and pain. Respiratory: Negative for cough, shortness of breath and wheezing. Cardiovascular: Negative for chest pain, palpitations and leg swelling. Gastrointestinal: Negative for abdominal pain, blood in stool, constipation, diarrhea, heartburn, nausea and vomiting. Genitourinary: Negative for dysuria, frequency and urgency. Musculoskeletal: Negative for back pain, joint pain and neck pain. Skin: Negative for itching and rash. Neurological: Negative for dizziness, weakness and headaches. Endo/Heme/Allergies: Negative for environmental allergies. Does not bruise/bleed easily. Psychiatric/Behavioral: Negative for depression and memory loss. The patient is not nervous/anxiousand does not have insomnia. PAST MEDICAL HISTORY Diagnosis Date Anal fistula 12/09/2023 PAST SURGICAL HISTORY Procedure Laterality Date VASECTOMY UNI/BI SPX W/POSTOP SEMEN EXAMS 10/11/2014 Social History Tobacco Use Smoking status: Never Passive exposure: Never Smokeless tobacco: Never Substance Use Topics Alcohol use: No Drug use: No History reviewed. No pertinent family history. The ROS, medical, surgical, family, and social history were reviewed by Saurabh Riddle MD ALLERGIES No Known Allergies Current Outpatient Medications Medication Sig docusate sodium (COLACE ORAL) Take by mouth. acetaminophen-codeine (TYLENOL-CODEINE #3) 300-30 mg per tablet Take 1 tablet by mouth every 6 hours as needed. (Patient not taking: Reported on 12/09/2023) LORazepam (ATIVAN) 1 mg tablet Take 2 tablets by mouth as directed. 1 HOUR PRIOR TO PROCEDURE (Patient not taking: Reported on 12/09/2023) No current facility-administered medications for this visit. OBJECTIVE BP 108/73 (BP Site: Left Arm, BP Position: Sitting, BP Cuff Size: Large Adult) Pulse 79 Ht 200.7 cm (6' 7) BMI 28.16 kg/m No weight on file for this encounter. Physical Exam Constitutional: General: He is not in acute distress. Appearance: Normal appearance. He is not ill-appearing. Abdominal: General: There is no distension. Palpations: Abdomen is soft. Tenderness: There is no abdominal tenderness. Neurological: Mental Status: He is alert and oriented to person, place, and time. Psychiatric: Mood and Affect: Mood and affect normal. Judgment: Judgment normal. Perineum: Appropriately healing fistulotomy site Plan ASSESSMENT/PLAN: 1. Anal fistula - ICD9: 565.1, ICD10: K60.30 He is doing well we will plan to see him back on an as-needed basis in the future Follow up: No follow-ups on file. Saurabh Riddle M.D. Please Note: This office note has been created using Webcrumbz, a speech recognition software program, and may contain errors including punctuation, grammar, spelling, gender, and inappropriate words or phrases that pertain to the sytem. documented in this encounterChillicothe Hospital10-14-2024 Telephone encounter Note * Telephone Encounter - Marni Bolanos - 12/12/2023 3:36 PM EDT Surgery Checklist Type: EUA, FISTULOTOMY VS SETON Admission Type: outpatient Anesthesia: MAC Date: 12/27/23 Arrival Time: 9:45 AM Surgery Time: 11:45 AM Location: [facility] Prep Marni Bolanos [facility] Miscellaneous Notes* Telephone Encounter - Marni Bolanos - 12/12/2023 3:36 PM EDT Surgery Checklist Type: EUA, FISTULOTOMY VS SETON Admission Type: outpatient Anesthesia: MAC Date: 12/27/23 Arrival Time: 9:45 AM Surgery Time: 11:45 AM Location: [facility] Prep Marni Bolanos documented in this encounterChillicothe Hospital10-14-2024 Telephone encounter Note * Telephone Encounter - Marni Bolanos - 12/12/2023 1:58 PM EDT Called the patient and left a voice message asking the patient to call the office back to schedule his Procedure. Marni Bolanos [facility]10-14-[facility] Miscellaneous Notes* Telephone Encounter - Marni Bolanos - 12/12/2023 1:58 PM EDT Called the patient and left a voice message asking the patient to call the office back to schedule his Procedure. Marni Olmos Marion documented in this encounterChillicothe Hospital10-11-2024 Instructions* Patient Instructions* Saurabh Riddle MD - 12/09/2023 11:00 AM EDT Images from the original note were not included. Anal Fistula What is an anal fistula? The anus is the external opening through which feces are expelled from the body. Just inside the anus are a number of small glands. If one of these glands become blocked, an abscess--an infected cavity--may form. An anal abscess is usually treated by surgical drainage, although some drain spontaneously. About 50% of these abscesses may develop into a fistula, in which a small tunnel connects the infected gland inside the anus to an opening on the skin around the anus. What causes an anal fistula? Most fistulas result from an anal abscess. A small number of fistulas may less frequently be causedby other processes such as Crohn's disease, sexually transmitted diseases, trauma, tuberculosis, cancer, or diverticulitis. What are the symptoms of an anal fistula? The following may be symptoms or signs of an anal fistula: Recurrent anal abscesses Pain and swelling around the anus Pain with bowel movements Bleeding Bloody or foul-smelling drainage (pus) from an opening around the anus. The pain may decrease afterthe fistula drains. Irritation of the skin around the anus due to persistent drainage Fever, chills, and a general feeling of fatigue. (However, these may be symptoms of many conditions.) You should see your physician if you notice any of these symptoms. How is an anal fistula diagnosed? Your physician can usually diagnose an anal fistula by examining the area around the anus. He or she will look for an external opening on the skin. If this is visible, your physician will then try todetermine the depth and direction of the fistula tract. Often drainage can be produced from the external opening. Some fistulas may not be visible on the skin's surface. In this case, your physician may need to perform additional tests, starting with anoscopy, in which a special instrument is used to see inside your anus and rectum. Your physician may also order an ultrasound or MRI of the anal area to better define the fistula tract. If a fistula is found, your physician may also want to do further tests to see if the condition is related to Crohn's disease, an inflammatory disease of the intestine. About 25% of people with Crohn's disease develop fistulas. Among these studies are blood tests, X-rays, and colonoscopy. A colonoscopy, in which a flexible, lighted instrument is inserted into the colon via the anus, is performed under conscious sedation, a type of light anesthetic. What are the treatments for an anal fistula? Surgery, performed by a colon and rectal specialist, is usually necessary to manage an anal fistula. During surgery, the physician will assess the depth and extent of the fistula tract. Most fistulasare treated with a fistulotomy, in which the skin and muscle over the tunnel are cut open, converting it into an open groove. This will allow the fistula tract to heal from the inside out. A more complex fistula may require placement of a special drain--a seton--for at least six weeks, after which a definitive surgical repair is done. Fistula surgery is generally done on an outpatient basis. Verylarge or deep fistula tunnels may require a short hospital stay. Is any follow-up treatment necessary? Following your fistula surgery, your physician may recommend soaking the affected area in a warm bath and taking stool softeners or laxatives for a week. Since you may also experience some pain or discomfort in the area after surgery, your physician will prescribe pain pills. Most fistulas respond well to surgical treatment. References [place] [employer]. Anal Abscess/Fistula Accessed 03/19/2014. National [employer] Diabetes and Digestive and Kidney Diseases. Anatomic Problems of the Lower GITract Accessed 03/19/2014. Copyright 3912-5944 [facility]. All rights reserved documented in this encounterCh[facility] NoteHNO ID: [id number] Author: SAURABH RIDDLE MD Service: ? Author Type: Physician Type: Progress Notes Filed: 12/09/2023 11:01 Note Text: Saurabh Riddle M.D. Colon AND Rectal Surgery [address] [facility], [address] [place] [address] DOMINGA Woods is a 38 year old White male with perianal fistula HPI The patient was referred by Dr. Jay Allred for my consultation regarding anal fistula. My final recommendations will be communicated back to the requesting physician by way of shared Medical record or letter to requesting physician via electronic or [place] mail. The patient is a pleasant 38-year-old male who over the summer developed a perianal abscess, the first he has experienced, in the anterior perianal skin. He underwent drainage of this with Dr. Allred. He did feel improved immediately after, and the area seemed to calm down but then about 6 weeks later he had recurring swelling in that area. He was treated with antibiotics and this has happened at least 1 other time since. Currently he denies pain but does have the sense that something is still off in the perineal area. He denies any blood in his stool or changes to his bowel habits. He has not had a prior colonoscopy. He has not had any other perianal or abdominal surgeries. Review of Systems Constitutional: Negative for chills, fever and weight loss. HENT: Negative for congestion, ear pain, hearing loss, sinus pain and sore throat. Eyes: Negative for blurred vision, double vision and pain. Respiratory: Negative for cough, shortness of breath and wheezing. Cardiovascular: Negative for chest pain, palpitations and leg swelling. Gastrointestinal: Negative for abdominal pain, blood in stool, constipation, diarrhea, heartburn, nausea and vomiting. Genitourinary: Negative for dysuria, frequency and urgency. Musculoskeletal: Negative for back pain, joint pain and neck pain. Skin: Negative for itching and rash. Neurological: Negative for dizziness, weakness and headaches. Endo/Heme/Allergies: Negative for environmental allergies. Does not bruise/bleed easily. Psychiatric/Behavioral: Negative for depression and memory loss. The patient is not nervous/anxious and does not have insomnia. No past medical history on file. PAST SURGICAL HISTORY Procedure Laterality Date VASECTOMY UNI/BI SPX W/POSTOP SEMEN EXAMS Social History Tobacco Use Smoking status: Never Passive exposure: Never Smokeless tobacco: Never Substance Use Topics Alcohol use: No Drug use: No No family history on file. The ROS, medical, surgical, family, and social history were reviewed by Saurabh Riddle MD ALLERGIES No Known Allergies Current Outpatient Medications Medication Sig acetaminophen-codeine (TYLENOL-CODEINE #3) 300-30 mg per tablet Take 1 tablet by mouth every 6 hours as needed. (Patient not taking: Reported on 12/09/2023) LORazepam (ATIVAN) 1 mg tablet Take 2 tablets by mouth as directed. 1 HOUR PRIOR TO PROCEDURE (Patient not taking: Reported on 12/09/2023) No current facility-administered medications for this visit. OBJECTIVE BP 125/84 (BP Site: Left Arm, BP Position: Sitting, BP Cuff Size: Large Adult) Pulse 80 Ht 200.7 cm (6' 7) Wt 113.4 kg (250 lb) BMI 28.16 kg/m? BMI 28.16 kg/(m2) Physical Exam Constitutional: General: He is not in acute distress. Appearance: Normal appearance. He is not ill-appearing. Cardiovascular: Rate and Rhythm: Normal rate and regular rhythm. Heart sounds: No murmur heard. No friction rub. No gallop. Pulmonary: Effort: Pulmonary effort is normal. No respiratory distress. Breath sounds: Normal breath sounds. No wheezing or rales. Abdominal: General: There is no distension. Palpations: Abdomen is soft. There is no hepatomegaly. Tenderness: There is no abdominal tenderness. Musculoskeletal: General: No deformity. Normal range of motion. Skin: General: Skin is warm and dry. Findings: No rash. Neurological: Mental Status: He is alert and oriented to person, place, and time. Gait: Gait normal. Psychiatric: Mood and Affect: Mood normal. Judgment: Judgment normal. Perineum: On external examination there is a small pit in the anterior midline neck concerning for recurring fistula area and just anterior to this I can see the scar Plan ASSESSMENT/PLAN: 1. Anal fistula - ICD9: 565.1, ICD10: K60.30 We did discuss the options for treatment of the fistula and primarily this includes surgery. We will determine the level of sphincter involvement at the time and from that could decide if fistulotomy or seton drainage is appropriate. He is interested to go ahead with this and we will set this up at his earliest convenience. INFORMED CONSENT Libby Woods Medical Record: [id number] Date: 12/09/2023 Procedure: Exam under anesthesia with fistulotomy versus seton The risks, benefits and anticipated (more content not included)...[facility]10-11-2024 History of Present illness Narrative* Saurabh Riddle MD - 12/09/2023 10:03 AM EDT Images from the original note were not included. Saurabh Riddle M.D. Colon & Rectal Surgery [address] [facility], [address] [place] [address] [facility] Libby Woods is a 38 year old White male with perianal fistula HPI The patient was referred by Dr. Jay Allred for my consultation regarding anal fistula. My final recommendations will be communicated back to the requesting physician by way of shared Medical record or letter to requesting physician via electronic or [place] mail. The patient is a pleasant 38-year-old male who over the summer developed a perianal abscess, the first he has experienced, in the anterior perianal skin. He underwent drainage of this with Dr. Allred. He did feel improved immediately after, and the area seemed to calm down but then about 6 weeks later he had recurring swelling in that area. He was treated with antibiotics and this has happened at least 1 other time since. Currently he denies pain but does have the sense that something is still off in the perineal area. He denies any blood in his stool or changes to his bowel habits. He has not had a prior colonoscopy. He has not had any other perianal or abdominal surgeries. Review of Systems Constitutional: Negative for chills, fever and weight loss. HENT: Negative for congestion, ear pain, hearing loss, sinus pain and sore throat. Eyes: Negative for blurred vision, double vision and pain. Respiratory: Negative for cough, shortness of breath and wheezing. Cardiovascular: Negative for chest pain, palpitations and leg swelling. Gastrointestinal: Negative for abdominal pain, blood in stool, constipation, diarrhea, heartburn, nausea and vomiting. Genitourinary: Negative for dysuria, frequency and urgency. Musculoskeletal: Negative for back pain, joint pain and neck pain. Skin: Negative for itching and rash. Neurological: Negative for dizziness, weakness and headaches. Endo/Heme/Allergies: Negative for environmental allergies. Does not bruise/bleed easily. Psychiatric/Behavioral: Negative for depression and memory loss. The patient is not nervous/anxiousand does not have insomnia. No past medical history on file. PAST SURGICAL HISTORY Procedure Laterality Date VASECTOMY UNI/BI SPX W/POSTOP SEMEN EXAMS Social History Tobacco Use Smoking status: Never Passive exposure: Never Smokeless tobacco: Never Substance Use Topics Alcohol use: No Drug use: No No family history on file. The ROS, medical, surgical, family, and social history were reviewed by Saurabh Riddle MD ALLERGIES No Known Allergies Current Outpatient Medications Medication Sig acetaminophen-codeine (TYLENOL-CODEINE #3) 300-30 mg per tablet Take 1 tablet by mouth every 6 hours as needed. (Patient not taking: Reported on 12/09/2023) LORazepam (ATIVAN) 1 mg tablet Take 2 tablets by mouth as directed. 1 HOUR PRIOR TO PROCEDURE (Patient not taking: Reported on 12/09/2023) No current facility-administered medications for this visit. OBJECTIVE BP 125/84 (BP Site: Left Arm, BP Position: Sitting, BP Cuff Size: Large Adult) Pulse 80 Ht 200.7 cm (6' 7) Wt 113.4 kg (250 lb) BMI 28.16 kg/m BMI 28.16 kg/(m^2) Physical Exam Constitutional: General: He is not in acute distress. Appearance: Normal appearance. He is not ill-appearing. Cardiovascular: Rate and Rhythm: Normal rate and regular rhythm. Heart sounds: No murmur heard. No friction rub. No gallop. Pulmonary: Effort: Pulmonary effort is normal. No respiratory distress. Breath sounds: Normal breath sounds. No wheezing or rales. Abdominal: General: There is no distension. Palpations: Abdomen is soft. There is no hepatomegaly. Tenderness: There is no abdominal tenderness. Musculoskeletal: General: No deformity. Normal range of motion. Skin: General: Skin is warm and dry. Findings: No rash. Neurological: Mental Status: He is alert and oriented to person, place, and time. Gait: Gait normal. Psychiatric: Mood and Affect: Mood normal. Judgment: Judgment normal. Perineum: On external examination there is a small pit in the anterior midline neck concerning for recurring fistula area and just anterior to this I can see the scar Plan ASSESSMENT/PLAN: 1. Anal fistula - ICD9: 565.1, ICD10: K60.30 We did discuss the options for treatment of the fistula and primarily this includes surgery. We will determine the level of sphincter involvement at the time and from that could decide if fistulotomyor seton drainage is appropriate. He is interested to go ahead with this and we will set this up athis earliest convenience. INFORMED CONSENT Libby Woods Medical Record: [id number] Date: 12/09/2023 Procedure: Exam under anesthesia with fistulotomy versus seton The risks, benefits and anticipated outcomes of the procedure, the risks and benefits of the alternatives to the procedure and the roles and tasks of the personnel to be involved were discussed with the patient and the patient consents to the procedure and agrees to proceed. I verify that I personally obtained Libby Woods's consent. Saurabh Riddle MD Dept of [facility] Follow up: No follow-ups on file. Saurabh Riddle M.D. Please Note: This office note has been created using [employer], a speech recognition software program, and may contain errors including punctuation, grammar, spelling, gender, and inappropriate words or phrases that pertain to the sytem. documented in this encounterC[facility] noteNo assessment information availableWPremier Health [facility] Work Phone: Evaluation note* Diagnosis Anal fistula- Primary documented in this encounter [facility] note* Diagnosis Anal fistula- Primary Anal fistula documented in this encounter [facility]* Diagnosis Anal fistula- Primary documented in this encounter [facility] note* Diagnosis Pre-op examination- Primary Preoperative examination, unspecified Anal fistula Anal fistula * Assessment & Plan Note - Yaneth Mattson APRN.CNP - 07/12/2024 9:48 AM EDT Associated Problem(s): Anal fistula Surgery scheduled 07/19/24 * Assessment & Plan Note - Yaneth Mattson APRN.CNP - 07/12/2024 9:48 AM EDT Associated Problem(s): Pre-op examination Medical conditions which may affect the perioperative course were address in today's visit. documented in this encounter [facility] note* Diagnosis Pre-op examination- Primary Preoperative examination, unspecified Anal fistula Anal fissure- Primary documented in this encounter [facility] note* Diagnosis Onset Date Resolution Status Admit Date Diarrhea acute October 7:29am [facility] Work Phone: Reason for referral (narrative)No reason for referral information availableSt. Joseph'S Hospital Work Phone: Family History Relationship Condition Age at Onset Recorded Date/T myra father Cardiac disease Unknown Diabetes mellitus Unknown Hypertension Unknown Advance Directives Advance Directive Response Recorded Date/ Time Living Will No February 15 019 1:07am Power of Watch And Clock Repair Clerk No February 15, 2019 1:07am Summary Purpose Chief Complaint and Reason for Visit Chief Complaint Admit Date ANAL FISTULA November 09, 2024 7:29am Reason for Visit Admit Date Diarrhea November 09, 2024 7:29am Chief Complaint Admit Date ANAL FISTULA November 09, 2024 7:29am 2 [facility] ORDERING LABS TODAY October 8:40am Additional Source Comments Care Teams (unrecognized sec tion and content) Team Status: Active Member Role Status Dates Dr. Linda Cazares DO Family Provider Active Dr. Linda Cazares DO Primary Care Provider Active Team Status: Inactive Member Role Status Dates Dr. Linda Cazares DO Primary Care Provider, Attendin g Provider Active Clinical Rehab Specialist Relationship Specialty Start Date End Date Linda Cazares DO PCP - General Family Medicine 10/11/14 Clinical Rehab Specialist Relationship Specialty Start Date End Date Linda Cazares DO PCP - General Family Medicine 10/11/14 Clinical Rehab Specialist Relationship Specialty Start Date End Date Linda Cazares DO PCP - General Family Medicine 10/11/14 Clinical Rehab Specialist Relationship Specialty Start Date End Date Linda Cazares DO PCP - General Family Medicine 10/11/14 Clinical Rehab Specialist Relationship Specialty Start Date End Date Linda Cazares DO PCP - General Family Medicine 10/11/14 Clinical Rehab Specialist Relationship Specialty Start Date End Date Linda Cazares DO PCP - General Family Medicine 10/11/14 Team Status: Active Member Role/Relationship Status Dates Dr. Linda Cazares DO Family Provider Active Dr. Linda Cazares DO Primary Care Provider Active Team Status: Inactive Member Role/Relationship Status Dates Dr. Linda Cazares DO Primary Care Provider Active Start: November 09, 2024 End: November 09, 2024 Dr. Linda Cazares DO Referring Provider Active Start: November 09, 2024 End: November 09, 2024 Dr. Jaquan Flores DO Attending Provider Active Start: November 09, 2024 End: November 09, 2024 Team Status: Active Member Role/Relationship Status Dates Dr. Linda Cazares DO Primary care physician Active Team Status: Inactive Member Role/Relationship Status Dates Dr. Linda Cazares DO Primary care physician Active Start: November 09, 2024 End: November 09, 2024 Dr. Linda Cazares DO Referring Provider Active Start: November 09, 2024 End: November 09, 2024 Dr. Jaquan Flores DO Attending physician Active Start: November 09, 2024 End: November 09, 2024 Team Status: Inactive Member Role/Relationship Status Dates Dr. Linda Cazares DO Primary care physician Active Start: November 09, 2024 End: November 09, 2024 Dr. Linda Cazares DO Referring Provider Active Start: November 09, 2024 End: November 09, 2024 Dr. Jaquan Flores , DO Attending physician Active Start: November 09, 2024 End: November 09, 2024 Goals (unrecognized section and content) Goals may be documented in a n alternate sectionGoals may be documented in an alternate sectionGoals may be documented in an alternate section Source Comments (unrecognize d section and content) In the event this informatio n is protected by the Federal Confidentiality of Alcohol and Drug Abuse Patient Records regulations: The Federal rules restrict any use of the information to criminally investigate or prosecute any alcohol or drug abuse patient.[facility] HospitalIn the event this information is protected by the Federal Confidentiality of Alcohol and Drug Abuse Patient Records regulations: The Federal rules restrict any use of the information to criminally investigate or prosecute any alcohol or drug abuse patient.[facility] HospitalIn the event this information is protected by the Federal Confidentiality of Alcohol and Drug Abuse Patient Records regulations: The Federal rules restrict any use of the information to criminally investigate or prosecute any alcohol or drug abuse patient.[facility] HospitalIn the event this information is protected by the Federal Confidentiality of Alcohol and Drug Abuse Patient Records regulations: The Federal rules restrict any use of the information to criminally investigate or prosecute any alcohol or drug abuse patient.[facility] HospitalIn the event this information is protected by the Federal Confidentiality of Alcohol and Drug Abuse Patient Records regulations: The Federal rules restrict any use of the information to criminally investigate or prosecute any alcohol or drug abuse patient.[facility] HospitalIn the event this information is protected by the Federal Confidentiality of Alcohol and Drug Abuse Patient Records regulations: The Federal rules restrict any use of the information to criminally investigate or prosecute any alcohol or drug abuse patient.[facility] HospitalIn the event this information is protected by the Federal Confidentiality of Alcohol and Drug Abuse Patient Records regulations: The Federal rules restrict any use of the information to criminally investigate or prosecute any alcohol or drug abuse patient.[facility] HospitalIn the event this information is protected by the Federal Confidentiality of Alcohol and Drug Abuse Patient Records regulations: The Federal rules restrict any use of the information to criminally investigate or prosecute any alcohol or drug abuse patient.[facility] HospitalIn the event this information is protected by the Federal Confidentiality of Alcohol and Drug Abuse Patient Records regulations: The Federal rules restrict any use of the information to criminally investigate or prosecute any alcohol or drug abuse patient.[facility] Reason for Visit (unrecogniz ed section and content) Reason Comments New Patient Perirectal abscess Reason Comments Schedule Procedure Reason Comments Procedure EUA, FISTULOTOMY VS SETON Reason Comments Post Op EUA Reason Comments Appointment Reason Comments Established Patient Follow up blood in s tool (unrecognized sect ion and content) No Status Records FoundNo Status Records Found INFORMATION SOURCE (unrecogn ized section and content) DATE CREATED AUTHOR 08/16/2024 [facility] DATE CREATED AUTHOR AUTHOR'S ORGANIZ ATION 11/21/2024 [facility] FOR RECORDS PERTAINING TO PATIENTS WHO ARE OR HAVE BEEN ENROLLED IN A CHEMICAL DEPENDENCY/SUBSTANCEABUSE PROGRAM, SOME INFORMATION MAY BE OMITTED. This clinical summary was aggregated from multiple sources. Caution should be exercised in using it in the provision of clinical care. This summary normalizes information from multiple sources, and as a consequence, information in this document may materially change the coding, format and clinical context of patient data. In addition, data may be omitted in some cases. CLINICAL DECISIONS SHOULD BE BASED ON THE PRIMARY CLINICAL RECORDS. [employer] [facility]. provides no warranty or guarantee of the accuracy or completeness of information in this document.
--- OUTSIDE RECORDS SUMMARY | 2024-12-01 08:31 | XMS RPT_ITS | CCD ---
Author Organization [facility] Care Team Providers Care Canary Raiser Name Role Phone Linda Cazares DO Primary Care Provider JANESSA, SAURABH Attending LINDA Villa A Primary Care Unavailable JYA ALLRED Referring Unavailabl e BRANDSTETTER, SAURABH Admitting Unavailabl e BRANDSTETTER, SAURABH Attending Unavailabl e ASHANTISTFIORELLAR, SAURABH Referring Unavailabl e MARQUEZ, LINDA A Primary Care Unavailable BRANDSTETTER, SAURABH Admitting Unavailabl e BRANDSTETTER, SAURABH Attending Unavailpatsy e MARQUEZ, LINDA A Primary Care Unavailable BRANDSTFIORELLAR, SAURABH Attending Unavailpatsy e MARQUEZ, LINDA A Primary Care Unavailable BRANDSTFIORELLAR, SAURABH Attending Unavailpatsy CAZARES, LINDA A Primary Care Unavailable MARQUEZ, LINDA A Primary Care Unavailable BRANDSTETTER, SAURABH Attending Unavailpatsy CAZARES, LINDA A Primary Care Unavailable MarquezDr. Linda carl DO Primary Care Provider [phone] Dr. Linda Cazares DO Referring Provider Friend Dr. Jaquan FINE Attending Provider Linda Cazares Primary Care Unavailable Jaquan Flores Attending Unavailable Linda Cazares Primary Care Unavailable Linda Cazares Referring Unavailable Jaquan Flores Attending Unavailable Linda Cazares Primary Care Unavailable Linda Cazares Referring Unavailable Jaquan Flores Attending Unavailable Dr. Linda Cazares DO Primary Care Physician Dr. Jaquan Flores DO Attending Physician [phone] Medications Current Medications Medication Drug Class(es) Dates [...] TO PROCEDURE 2 tablet 0 10/11/2014 Active Tonasket (Nk) (2 sources) Start: 08-06-2023 Tonasket (Nk) Active August 06, 2023 12:00am Completed/Discontinued [...] SHANI 11-15-2024 Atypical pANCA <1:20 Normal Neg:<1:20 [facility] Comment on above: Result Comment: The atypical pANCA pattern has been observed in a significant percentage of patients with ulcerative colitis, primary sclerosing cholangitis and autoimmune hepatitis. Performed at: [facility] [address] [id number] Social Work Job Titles: Derrick Duran PhD, Phone: [phone] Performed at: [facility] [address] [id number] Social Work Job Titles: Luis Daniel Castillo MD, Phone: [phone] Performed By: #### L 3410.2400, L3300.1200, L500.4050, L501.6710, L3200.1100, L101.9900, L2100.0000, L5500.0550, L504.2610, L3100.5440, L100.0100, L3400.8000, L501.9520 #### [facility] [address] [facility] [place], [place], [id number] Cytoplasmic Ab <1:20 Normal Neg:<1:20 [facility] Comment on above: Performed By: #### L 3410.2400, L3300.1200, L500.4050, L501.6710, L3200.1100, L101.9900, L2100.0000, L5500.0550, L504.2610, L3100.5440, L100.0100, L3400.8000, L501.9520 #### [facility] [address] [facility] [place], [place], [id number] Perinuclear Ab. <1:20 Normal Neg:<1:20 [facility] Comment on above: Result Comment: The presence of positive fluorescence exhibiting P-ANCA or C-ANCA patterns alone is not specific for the diagnosis of Elvie's Granulomatosis (WG) or microscopic polyangiitis. Decisions about treatment should not be based solely on ANCA IFA results. The [employer] ANCA [employer] Consensus recommends follow up testing of positive sera with both WI- 3 and MPO-ANCA enzyme immunoassays. As many as 5% serum samples are positive only by EIA. Ref. AM J Clin Pathol 1999;111:507-513. Performed By: #### L 3410.2400, L3300.1200, L500.4050, L501.6710, L3200.1100, L101.9900, L2100.0000, L5500.0550, L504.2610, L3100.5440, L100.0100, L3400.8000, L501.9520 #### [facility] [address] [place], [place], [id number] Celiac Disease Profileon ENDOMYSIAL IGA Negative Normal Negative [facility] Comment on above: Performed By: #### L 3410.2400, L3300.1200, L500.4050, L501.6710, L3200.1100, L101.9900, L2100.0000, L5500.0550, L504.2610, L3100.5440, L100.0100, L3400.8000, L501.9520 #### [facility] [address] [place], [address] tTG IGA <2 Normal 0-3 [facility] Comment on above: Result Comment: Nega tive 0 - 3 Weak Positive 4 - 10 Positive >10 Tissue Transglutaminase (tTG) has been identified as the endomysial antigen. Studies have demonstr- ated that endomysial IgA antibodies have over 99% specificity for gluten sensitive enteropathy. Performed By: #### L 3410.2400, L3300.1200, L500.4050, L501.6710, L3200.1100, L101.9900, L2100.0000, L5500.0550, L504.2610, L3100.5440, L100.0100, L3400.8000, L501.9520 #### [facility] [address] [place], [address] Immunoglobulins G/A/M/Bj IMMUNOGLOB A QN 132 mg/dL Normal 90-386 [facility] Comment on above: Order Comment: Y Performed By: #### L 3410.2400, L3300.1200, L500.4050, L501.6710, L3200.1100, L101.9900, L2100.0000, L5500.0550, L504.2610, L3100.5440, L100.0100, L3400.8000, L501.9520 #### [facility] [address] [place], [address] IMMUNOGLOB E QN 14 IU/mL Normal 6-495 [facility] Comment on above: Order Comment: Y Performed By: #### L 3410.2400, L3300.1200, L500.4050, L501.6710, L3200.1100, L101.9900, L2100.0000, L5500.0550, L504.2610, L3100.5440, L100.0100, L3400.8000, L501.9520 #### [facility] [address] [place], [address] IMMUNOGLOB G QN 1126 mg/dL Normal 603-1613 [facility] Comment on above: Order Comment: Y Performed By: #### L 3410.2400, L3300.1200, L500.4050, L501.6710, L3200.1100, L101.9900, L2100.0000, L5500.0550, L504.2610, L3100.5440, L100.0100, L3400.8000, L501.9520 #### [facility] [address] [place], [place], [address] [phone] IMMUNOGLOB M QN 50 mg/dL Normal 20-172 [facility] Comment on above: Order Comment: Y Performed By: #### L 3410.2400, L3300.1200, L500.4050, L501.6710, L3200.1100, L101.9900, L2100.0000, L5500.0550, L504.2610, L3100.5440, L100.0100, L3400.8000, L501.9520 #### [facility] [address] [place], [place], [address] L2100.0000on 11-15-2024 ACCA 9 units Normal 0-90 [facility] Comment on above: Result Comment: Nega tive: <80 Equivocal: 80-90 Positive: >90 Performed By: #### L 3410.2400, L3300.1200, L500.4050, L501.6710, L3200.1100, L101.9900, L2100.0000, L5500.0550, L504.2610, L3100.5440, L100.0100, L3400.8000, L501.9520 #### [facility] [address] [place], [place], [address] ALCA 4 units Normal 0-60 [facility] Comment on above: Result Comment: Nega tive:<55 Equivocal: 55-60 Positive: >60 Performed By: #### L 3410.2400, L3300.1200, L500.4050, L501.6710, L3200.1100, L101.9900, L2100.0000, L5500.0550, L504.2610, L3100.5440, L100.0100, L3400.8000, L501.9520 #### [facility] [address] [place], [place], [address] AMCA 28 units Normal 0-100 [facility] Comment on above: Result Comment: Nega tive: <90 Equivocal: 90-100 Positive: >100 This test was developed and its performance characteristics determined by [employer]. It has not been cleared or approved by the Food and Drug Administration. The FDA has determined that such clearance or approval is not necessary. Performed By: #### L 3410.2400, L3300.1200, L500.4050, L501.6710, L3200.1100, L101.9900, L2100.0000, L5500.0550, L504.2610, L3100.5440, L100.0100, L3400.8000, L501.9520 #### [facility] [address] [place], [place], [id number] Atypical pANCA Negative Normal Negative [facility] Comment on above: Performed By: #### L 3410.2400, L3300.1200, L500.4050, L501.6710, L3200.1100, L101.9900, L2100.0000, L5500.0550, L504.2610, L3100.5440, L100.0100, L3400.8000, L501.9520 #### [facility] [address] [place], [place], [id number] COMMENT Comment Normal . [facility] Comment on above: Result Comment: Radha eddie is not suggestive of Inflammatory Bowel Disease Performed By: #### L 3410.2400, L3300.1200, L500.4050, L501.6710, L3200.1100, L101.9900, L2100.0000, L5500.0550, L504.2610, L3100.5440, L100.0100, L3400.8000, L501.9520 #### [facility] [address] [place], [address] Erma 12 units Normal 0-50 [facility] Comment on above: Result Comment: Nega tive: <45 Equivocal: 45-50 Positive: >50 Performed By: #### L 3410.2400, L3300.1200, L500.4050, L501.6710, L3200.1100, L101.9900, L2100.0000, L5500.0550, L504.2610, L3100.5440, L100.0100, L3400.8000, L501.9520 #### [facility] [address] [place], [address] Quantiferon TB-Gold+on 11-15 QFT MITOGEN RICKY > 10.00 Normal . [facility] Comment on above: Performed By: #### L 3410.2400, L3300.1200, L500.4050, L501.6710, L3200.1100, L101.9900, L2100.0000, L5500.0550, L504.2610, L3100.5440, L100.0100, L3400.8000, L501.9520 #### [facility] [address] [place], [place], [phone] (208) QFT NIL VALUE 0.04 IU/mL Normal . [facility] Comment on above: Performed By: #### L 3410.2400, L3300.1200, L500.4050, L501.6710, L3200.1100, L101.9900, L2100.0000, L5500.0550, L504.2610, L3100.5440, L100.0100, L3400.8000, L501.9520 #### [facility] [address] [place], [address] (371) QFT TB GOLD+ Comment Normal . [facility] Comment on above: Result Comment: Rigo tiFERON-TB [...] L5500.0550, L504.2610, L3100.5440, L100.0100, L3400.8000, L501.9520 #### [facility] [address] [place], [address] QFT TB POS CRIT Negative Normal Negative [facility] Comment on above: Result Comment: No r [...] L5500.0550, L504.2610, L3100.5440, L100.0100, L3400.8000, L501.9520 #### [facility] [address] [place], [address] QFT TB1+ AG RICKY 0.10 IU/mL Normal . [facility] Comment on above: Performed By: #### L 3410.2400, L3300.1200, L500.4050, L501.6710, L3200.1100, L101.9900, L2100.0000, L5500.0550, L504.2610, L3100.5440, L100.0100, L3400.8000, L501.9520 #### [facility] [address] [place], [address] QFT TB2+ AG RICKY 0.11 IU/mL Normal . [facility] Comment on above: Performed By: #### L 3410.2400, L3300.1200, L500.4050, L501.6710, L3200.1100, L101.9900, L2100.0000, L5500.0550, L504.2610, L3100.5440, L100.0100, L3400.8000, L501.9520 #### [facility] [address] [place], [address] AMELIE Comprehensive Panelon ANTI-DNA (DS)AB <1 Normal 0-9 [facility] Comment on above: Result Comment: Nega tive <5 Equivocal 5 - 9 Positive >9 Performed By: #### L 3410.2400, L3300.1200, L500.4050, L501.6710, L3200.1100, L101.9900, L2100.0000, L5500.0550, L504.2610, L3100.5440, L100.0100, L3400.8000, L501.9520 #### [facility] [address] [place], [place], [id number] ANTI-SS-A < 0.2 Normal 0.0-0.9 [facility] Comment on above: Performed By: #### L 3410.2400, L3300.1200, L500.4050, L501.6710, L3200.1100, L101.9900, L2100.0000, L5500.0550, L504.2610, L3100.5440, L100.0100, L3400.8000, L501.9520 #### [facility] [place], [place], [id number] ANTI-SS-B < 0.2 Normal 0.0-0.9 [facility] Comment on above: Performed By: #### L 3410.2400, L3300.1200, L500.4050, L501.6710, L3200.1100, L101.9900, L2100.0000, L5500.0550, L504.2610, L3100.5440, L100.0100, L3400.8000, L501.9520 #### [facility] [address] [place], [place], [id number] Allergen, Food Profile 1411-13-2024 BEEF <0.10 Normal Class 0 [facility] Comment on above: Performed By: #### L 3410.2400, L3300.1200, L500.4050, L501.6710, L3200.1100, L101.9900, L2100.0000, L5500.0550, L504.2610, L3100.5440, L100.0100, L3400.8000, L501.9520 #### [facility] [address] [place], [place], [id number] CHOCOLATE <0.10 Normal Class 0 [facility] Comment on above: Performed By: #### L 3410.2400, L3300.1200, L500.4050, L501.6710, L3200.1100, L101.9900, L2100.0000, L5500.0550, L504.2610, L3100.5440, L100.0100, L3400.8000, L501.9520 #### [facility] [address] [place], [place], [id number] CODFISH <0.10 Normal Class 0 [facility] Comment on above: Performed By: #### L 3410.2400, L3300.1200, L500.4050, L501.6710, L3200.1100, L101.9900, L2100.0000, L5500.0550, L504.2610, L3100.5440, L100.0100, L3400.8000, L501.9520 #### [facility] [address] [place], [place], [id number] COMMENT Comment Normal . [facility] Comment on above: Result Comment: Talha aragon [...] L5500.0550, L504.2610, L3100.5440, L100.0100, L3400.8000, L501.9520 #### [facility] [address] [place], [place], [id number] CORN <0.10 Normal Class 0 [facility] Comment on above: Performed By: #### L 3410.2400, L3300.1200, L500.4050, L501.6710, L3200.1100, L101.9900, L2100.0000, L5500.0550, L504.2610, L3100.5440, L100.0100, L3400.8000, L501.9520 #### [facility] [address] [place], [place], [id number] EGG, WHOLE <0.10 Normal Class 0 [facility] Comment on above: Result Comment: Perf ormed at: [address] [id number] Social Work Job Titles: Derrick Duran PhD, Phone: [phone] Performed at: [facility] [address] [id number] Social Work Job Titles: Luis Daniel Castillo MD, Phone: [phone] Performed By: #### L 3410.2400, L3300.1200, L500.4050, L501.6710, L3200.1100, L101.9900, L2100.0000, L5500.0550, L504.2610, L3100.5440, L100.0100, L3400.8000, L501.9520 #### [facility] [address] [place], [place], [id number] MILK (COW) <0.10 Normal Class 0 [facility] Comment on above: Performed By: #### L 3410.2400, L3300.1200, L500.4050, L501.6710, L3200.1100, L101.9900, L2100.0000, L5500.0550, L504.2610, L3100.5440, L100.0100, L3400.8000, L501.9520 #### [facility] [address] [place], [address] MUSSELS <0.10 Normal Class 0 [facility] Comment on above: Performed By: #### L 3410.2400, L3300.1200, L500.4050, L501.6710, L3200.1100, L101.9900, L2100.0000, L5500.0550, L504.2610, L3100.5440, L100.0100, L3400.8000, L501.9520 #### [facility] [address] [place], [place], [id number] PEANUT <0.10 Normal Class 0 [facility] Comment on above: Performed By: #### L 3410.2400, L3300.1200, L500.4050, L501.6710, L3200.1100, L101.9900, L2100.0000, L5500.0550, L504.2610, L3100.5440, L100.0100, L3400.8000, L501.9520 #### [facility] [address] [place], [place], [id number] PORK <0.10 Normal Class 0 [facility] Comment on above: Performed By: #### L 3410.2400, L3300.1200, L500.4050, L501.6710, L3200.1100, L101.9900, L2100.0000, L5500.0550, L504.2610, L3100.5440, L100.0100, L3400.8000, L501.9520 #### [facility] [address] [facility] [facility] [place], [place], [id number] SALMON <0.10 Normal Class 0 [facility] Comment on above: Performed By: #### L 3410.2400, L3300.1200, L500.4050, L501.6710, L3200.1100, L101.9900, L2100.0000, L5500.0550, L504.2610, L3100.5440, L100.0100, L3400.8000, L501.9520 #### [facility] [address] [facility] [place], [id number] SHRIMP <0.10 Normal Class 0 [facility] Comment on above: Performed By: #### L 3410.2400, L3300.1200, L500.4050, L501.6710, L3200.1100, L101.9900, L2100.0000, L5500.0550, L504.2610, L3100.5440, L100.0100, L3400.8000, L501.9520 #### [facility] [address] [place], [place], [id number] SOYBEAN <0.10 Normal Class 0 [facility] Comment on above: Performed By: #### L 3410.2400, L3300.1200, L500.4050, L501.6710, L3200.1100, L101.9900, L2100.0000, L5500.0550, L504.2610, L3100.5440, L100.0100, L3400.8000, L501.9520 #### [facility] [address] [facility] [place], [place], [id number] TUNA <0.10 Normal Class 0 [facility] Comment on above: Performed By: #### L 3410.2400, L3300.1200, L500.4050, L501.6710, L3200.1100, L101.9900, L2100.0000, L5500.0550, L504.2610, L3100.5440, L100.0100, L3400.8000, L501.9520 #### [facility] [address] [place], [place], [id number] WHEAT <0.10 Normal Class 0 [facility] Comment on above: Performed By: #### L 3410.2400, L3300.1200, L500.4050, L501.6710, L3200.1100, L101.9900, L2100.0000, L5500.0550, L504.2610, L3100.5440, L100.0100, L3400.8000, L501.9520 #### [facility] [address] [place], [address] Absolute lymphocyte countOrd ered By: Jaquan Flores on 11-09-2024 Lymphocytes Auto (Unsp spec) [#/Vol] 2.65 10*3/uL 0.83-4.51 [facility] Absolute neutrophil countOrd ered By: Jaquanmerry Flores on 11-09-2024 Neutrophils (Bld) [#/Vol] 4.6 10*3/uL 2.0-7.7 [facility] Anion gap in Serum or Plasma Ordered By: Jaquanshakila Flores on 11-09-2024 Anion gap [Moles/Vol] 11 mmol/L 5-15 [facility] Automated lymphocyte count a s percentage of total leukocytesOrdered By: Jaquan Flores on 11-09-2024 Lymphocytes/100 WBC Auto (Unsp spec) 32.3 % 19- [facility] BUN/creatinine ratioOrdered By: Jaquanmerry Flores on 11-09-2024 Urea nitrogen/Creatinine [Mass ratio] 17.5 mg/mg 10- [facility] Basophil percentageOrdered B y: Jaquan Flores on 11-09-2024 Basophils/100 WBC (Bld) 0.7 % 0-1 [facility] Bilirubin, totalOrdered By: Jaquanmerry Flores on 11-09-2024 Bilirubin [Mass/Vol] 0.47 mg/dL 0.00-1.30 [facility] CBC W/Diff, Automatedon 10-29 Absolute Lymph 2.65 X10 3/uL Normal 0.83-4.51 [facility] Comment on above: Performed By: #### L 3410.2400, L3300.1200, L500.4050, L501.6710, L3200.1100, L101.9900, L2100.0000, L5500.0550, L504.2610, L3100.5440, L100.0100, L3400.8000, L501.9520 #### [facility] [address] [place], [address] Absolute Neut 4.6 X10 3/uL Normal 2.0-7.7 [facility] Comment on above: Performed By: #### L 3410.2400, L3300.1200, L500.4050, L501.6710, L3200.1100, L101.9900, L2100.0000, L5500.0550, L504.2610, L3100.5440, L100.0100, L3400.8000, L501.9520 #### [facility] [address] [place], [address] Basophils/100 WBC (Bld) 0.7 % Normal 0-1 [facility] Comment on above: Performed By: #### L 3410.2400, L3300.1200, L500.4050, L501.6710, L3200.1100, L101.9900, L2100.0000, L5500.0550, L504.2610, L3100.5440, L100.0100, L3400.8000, L501.9520 #### [facility] [address] [place], [address] Eosinophils/100 WBC (Bld) 2.0 % Normal 0-5 [facility] Comment on above: Performed By: #### L 3410.2400, L3300.1200, L500.4050, L501.6710, L3200.1100, L101.9900, L2100.0000, L5500.0550, L504.2610, L3100.5440, L100.0100, L3400.8000, L501.9520 #### [facility] [address] [place], [place], [phone] (042) Erythrocyte distribution width (RBC) [Ratio] 11.8 % Normal 11.6-14.6 [facility] Comment on above: Performed By: #### L 3410.2400, L3300.1200, L500.4050, L501.6710, L3200.1100, L101.9900, L2100.0000, L5500.0550, L504.2610, L3100.5440, L100.0100, L3400.8000, L501.9520 #### [facility] [address] [place], [address] Hematocrit (Bld) [Volume fraction] 44.8 % Normal 40-54 [facility] Comment on above: Performed By: #### L 3410.2400, L3300.1200, L500.4050, L501.6710, L3200.1100, L101.9900, L2100.0000, L5500.0550, L504.2610, L3100.5440, L100.0100, L3400.8000, L501.9520 #### [facility] [address] [facility] [place], [address] Hemoglobin (Bld) [Mass/Vol] 15.1 g/dL Normal 13.0-16. 5 [facility] Comment on above: Performed By: #### L 3410.2400, L3300.1200, L500.4050, L501.6710, L3200.1100, L101.9900, L2100.0000, L5500.0550, L504.2610, L3100.5440, L100.0100, L3400.8000, L501.9520 #### [facility] [address] [facility] [place], [address] IG% 0.500 Normal 0.0-0.9 [facility] Comment on above: Result Comment: IG% - Immature Granulocytes (promyelocytes, myelocytes and metamyelocytes) > 1% indicates that a LEFT SHIFT is Present. Performed By: #### L 3410.2400, L3300.1200, L500.4050, L501.6710, L3200.1100, L101.9900, L2100.0000, L5500.0550, L504.2610, L3100.5440, L100.0100, L3400.8000, L501.9520 #### [facility] [address] [place], [address] Lymphocytes/100 WBC (Bld) 32.3 % Normal 19-41 [facility] Comment on above: Performed By: #### L 3410.2400, L3300.1200, L500.4050, L501.6710, L3200.1100, L101.9900, L2100.0000, L5500.0550, L504.2610, L3100.5440, L100.0100, L3400.8000, L501.9520 #### [facility] [address] [place], [address] MCH (RBC) [Entitic mass] 29.6 pg Normal 27.0-32.0 [facility] Comment on above: Performed By: #### L 3410.2400, L3300.1200, L500.4050, L501.6710, L3200.1100, L101.9900, L2100.0000, L5500.0550, L504.2610, L3100.5440, L100.0100, L3400.8000, L501.9520 #### [facility] [address] [place], [address] MCHC (RBC) [Mass/Vol] 33.7 g/dL Normal 32-36 [facility] Comment on above: Performed By: #### L 3410.2400, L3300.1200, L500.4050, L501.6710, L3200.1100, L101.9900, L2100.0000, L5500.0550, L504.2610, L3100.5440, L100.0100, L3400.8000, L501.9520 #### [facility] [address] [place], [address] MCV (RBC) [Entitic vol] 87.8 fL Normal 80-94 [facility] Comment on above: Performed By: #### L 3410.2400, L3300.1200, L500.4050, L501.6710, L3200.1100, L101.9900, L2100.0000, L5500.0550, L504.2610, L3100.5440, L100.0100, L3400.8000, L501.9520 #### [facility] [address] [place], [address] Monocytes/100 WBC (Bld) 8.2 % Normal 0-10 [facility] Comment on above: Performed By: #### L 3410.2400, L3300.1200, L500.4050, L501.6710, L3200.1100, L101.9900, L2100.0000, L5500.0550, L504.2610, L3100.5440, L100.0100, L3400.8000, L501.9520 #### [facility] [address] [place], [address] Neutrophils/100 WBC (Bld) 56.3 % Normal 47-70 [facility] Comment on above: Performed By: #### L 3410.2400, L3300.1200, L500.4050, L501.6710, L3200.1100, L101.9900, L2100.0000, L5500.0550, L504.2610, L3100.5440, L100.0100, L3400.8000, L501.9520 #### [facility] [address] [place], [address] Nucleated RBC (Bld) [#/Vol] 0 10*3/uL Normal 0-5 [facility] Comment on above: Performed By: #### L 3410.2400, L3300.1200, L500.4050, L501.6710, L3200.1100, L101.9900, L2100.0000, L5500.0550, L504.2610, L3100.5440, L100.0100, L3400.8000, L501.9520 #### [facility] [address] [place], [address] Platelet mean volume (Bld) [Entitic vol] 8.7 fL Normal 6.2-12.0 [facility] Comment on above: Performed By: #### L 3410.2400, L3300.1200, L500.4050, L501.6710, L3200.1100, L101.9900, L2100.0000, L5500.0550, L504.2610, L3100.5440, L100.0100, L3400.8000, L501.9520 #### [facility] [address] [place], [place], [phone] (191) Platelets (Bld) [#/Vol] 326 10*3/uL Normal 150-450 [facility] Comment on above: Performed By: #### L 3410.2400, L3300.1200, L500.4050, L501.6710, L3200.1100, L101.9900, L2100.0000, L5500.0550, L504.2610, L3100.5440, L100.0100, L3400.8000, L501.9520 #### [facility] [address] [place], [place], [phone] (105) RBC (Bld) [#/Vol] 5.10 10*6/uL Normal 4.6-6.2 [facility] Comment on above: Performed By: #### L 3410.2400, L3300.1200, L500.4050, L501.6710, L3200.1100, L101.9900, L2100.0000, L5500.0550, L504.2610, L3100.5440, L100.0100, L3400.8000, L501.9520 #### [facility] [address] [facility] [place], [place], [phone] (694) RDW SD 37.9 fl Normal 35.1-43.9 [facility] Comment on above: Performed By: #### L 3410.2400, L3300.1200, L500.4050, L501.6710, L3200.1100, L101.9900, L2100.0000, L5500.0550, L504.2610, L3100.5440, L100.0100, L3400.8000, L501.9520 #### [facility] [address] [place], [place], [id number] WBC (Bld) [#/Vol] 8.2 10*3/uL Normal 4.4-11.0 [facility] Comment on above: Performed By: #### L 3410.2400, L3300.1200, L500.4050, L501.6710, L3200.1100, L101.9900, L2100.0000, L5500.0550, L504.2610, L3100.5440, L100.0100, L3400.8000, L501.9520 #### [facility] [address] [place], [place], [phone] CRPon 11-09-2024 C-REACTIVE PROT 4.85 mg/L High 0.0-3.0 [facility] Comment on above: Performed By: #### L 3410.2400, L3300.1200, L500.4050, L501.6710, L3200.1100, L101.9900, L2100.0000, L5500.0550, L504.2610, L3100.5440, L100.0100, L3400.8000, L501.9520 #### [facility] [address] [place], [place], [id number] Calculated very low density lipoprotein (VLDL) cholesterol measurementOrdered By: Jaquan Flores on 11-09-2024 Calculated very low density lipoprotein (VLDL) cholesterol measurement 58 mg/dL High 5-40 [facility] Carbon dioxide, total [Moles /volume] in Central venous bloodOrdered By: Jaquan Flores on 11-09-2024 CO2 [Moles/Vol] 25.0 mmol/L 21.0-32.0 [facility] Chitobioside IgA antibody as sayOrdered By: Jaquan Flores on 11-09-2024 Chitobioside IgA IA Qn 9 units 0-90 [facility] Comment on above: Negative: <80 Equivo kalani: 80-90 Positive: >90 Chloride assayOrdered By: Ra igor Flores on 11-09-2024 Chloride [Moles/Vol] 103 mmol/L 98-108 [facility] Comprehensive Metabolic Prof ilon 11-09-2024 Albumin [Mass/Vol] 4.7 g/dL Normal 3.5-5.0 [facility] Comment on above: Performed By: #### L 3410.2400, L3300.1200, L500.4050, L501.6710, L3200.1100, L101.9900, L2100.0000, L5500.0550, L504.2610, L3100.5440, L100.0100, L3400.8000, L501.9520 #### [facility] [address] [place], [place], [phone] Albumin/Globulin [Mass ratio] 1.6 {ratio} Normal 0.9-2.4 [facility] Comment on above: Performed By: #### L 3410.2400, L3300.1200, L500.4050, L501.6710, L3200.1100, L101.9900, L2100.0000, L5500.0550, L504.2610, L3100.5440, L100.0100, L3400.8000, L501.9520 #### [facility] [address] [place], [address] ALK PHOS 51 U/L Normal 40-129 [facility] Comment on above: Performed By: #### L 3410.2400, L3300.1200, L500.4050, L501.6710, L3200.1100, L101.9900, L2100.0000, L5500.0550, L504.2610, L3100.5440, L100.0100, L3400.8000, L501.9520 #### [facility] [address] [place], [place], [id number] ALT [Catalytic activity/Vol] 23 U/L Normal <=46 [facility] Comment on above: Performed By: #### L 3410.2400, L3300.1200, L500.4050, L501.6710, L3200.1100, L101.9900, L2100.0000, L5500.0550, L504.2610, L3100.5440, L100.0100, L3400.8000, L501.9520 #### [facility] [address] [place], [place], [phone] AST [Catalytic activity/Vol] 22 U/L Normal <=37 [facility] Comment on above: Performed By: #### L 3410.2400, L3300.1200, L500.4050, L501.6710, L3200.1100, L101.9900, L2100.0000, L5500.0550, L504.2610, L3100.5440, L100.0100, L3400.8000, L501.9520 #### [facility] [address] [place], [address] Bilirubin [Mass/Vol] 0.47 mg/dL Normal 0.00-1.30 [facility] Comment on above: Performed By: #### L 3410.2400, L3300.1200, L500.4050, L501.6710, L3200.1100, L101.9900, L2100.0000, L5500.0550, L504.2610, L3100.5440, L100.0100, L3400.8000, L501.9520 #### [facility] [address] [place], [address] BUN/CRE 17.5 RATIO Normal 10-20 [facility] Comment on above: Performed By: #### L 3410.2400, L3300.1200, L500.4050, L501.6710, L3200.1100, L101.9900, L2100.0000, L5500.0550, L504.2610, L3100.5440, L100.0100, L3400.8000, L501.9520 #### [facility] [address] [place], [address] Calcium [Mass/Vol] 9.1 mg/dL Normal 7.6-11.0 [facility] Comment on above: Performed By: #### L 3410.2400, L3300.1200, L500.4050, L501.6710, L3200.1100, L101.9900, L2100.0000, L5500.0550, L504.2610, L3100.5440, L100.0100, L3400.8000, L501.9520 #### [facility] [address] [place], [address] Chloride [Moles/Vol] 103 mmol/L Normal 98-108 [facility] Comment on above: Performed By: #### L 3410.2400, L3300.1200, L500.4050, L501.6710, L3200.1100, L101.9900, L2100.0000, L5500.0550, L504.2610, L3100.5440, L100.0100, L3400.8000, L501.9520 #### [facility] [address] [place], [address] CO2 [Moles/Vol] 25.0 mmol/L Normal 21.0-32.0 [facility] Comment on above: Performed By: #### L 3410.2400, L3300.1200, L500.4050, L501.6710, L3200.1100, L101.9900, L2100.0000, L5500.0550, L504.2610, L3100.5440, L100.0100, L3400.8000, L501.9520 #### [facility] [address] [place], [address] Creatinine [Mass/Vol] 0.87 mg/dL Normal 0.70-1.20 [facility] Comment on above: Performed By: #### L 3410.2400, L3300.1200, L500.4050, L501.6710, L3200.1100, L101.9900, L2100.0000, L5500.0550, L504.2610, L3100.5440, L100.0100, L3400.8000, L501.9520 #### [facility] [address] [place], [place], [id number] GAP 11 Normal 5-15 [facility] Comment on above: Performed By: #### L 3410.2400, L3300.1200, L500.4050, L501.6710, L3200.1100, L101.9900, L2100.0000, L5500.0550, L504.2610, L3100.5440, L100.0100, L3400.8000, L501.9520 #### [facility] [address] [place], [address] GFR/1.73 sq M.predicted among non-blacks MDRD (S/P/Bld) [Vol rate/Area] 111 mL/min/{1.73_m2} Normal >60 [facility] Comment on above: Result Comment: mL/m in/1.73m2 CKD-EPI Creatinine Equation (2020) Performed By: #### L 3410.2400, L3300.1200, L500.4050, L501.6710, L3200.1100, L101.9900, L2100.0000, L5500.0550, L504.2610, L3100.5440, L100.0100, L3400.8000, L501.9520 #### [facility] [address] [place], [place], [id number] Globulin (S) [Mass/Vol] 3.0 g/dL Normal 2.2-4.2 [facility] Comment on above: Performed By: #### L 3410.2400, L3300.1200, L500.4050, L501.6710, L3200.1100, L101.9900, L2100.0000, L5500.0550, L504.2610, L3100.5440, L100.0100, L3400.8000, L501.9520 #### [facility] [address] [place], [place], [phone] (297) Glucose [Mass/Vol] 100 mg/dL High 70-99 [facility] Comment on above: Performed By: #### L 3410.2400, L3300.1200, L500.4050, L501.6710, L3200.1100, L101.9900, L2100.0000, L5500.0550, L504.2610, L3100.5440, L100.0100, L3400.8000, L501.9520 #### [facility] [address] [place], [address] Potassium [Moles/Vol] 4.0 mmol/L Normal 3.3-5.1 [facility] Comment on above: Performed By: #### L 3410.2400, L3300.1200, L500.4050, L501.6710, L3200.1100, L101.9900, L2100.0000, L5500.0550, L504.2610, L3100.5440, L100.0100, L3400.8000, L501.9520 #### [facility] [address] [place], [address] Sodium [Moles/Vol] 139 mmol/L Normal 133-145 [facility] Comment on above: Performed By: #### L 3410.2400, L3300.1200, L500.4050, L501.6710, L3200.1100, L101.9900, L2100.0000, L5500.0550, L504.2610, L3100.5440, L100.0100, L3400.8000, L501.9520 #### [facility] [address] [place], [address] T PROT 7.8 g/dL Normal 5.9-8.4 [facility] Comment on above: Performed By: #### L 3410.2400, L3300.1200, L500.4050, L501.6710, L3200.1100, L101.9900, L2100.0000, L5500.0550, L504.2610, L3100.5440, L100.0100, L3400.8000, L501.9520 #### [facility] [address] [place], [address] Urea nitrogen [Mass/Vol] 15 mg/dL Normal 4-19 [facility] Comment on above: Performed By: #### L 3410.2400, L3300.1200, L500.4050, L501.6710, L3200.1100, L101.9900, L2100.0000, L5500.0550, L504.2610, L3100.5440, L100.0100, L3400.8000, L501.9520 #### [facility] [address] [place], [address] Albumin [Mass/Vol] 4.7 g/dL Normal 3.5-5.0 [facility] Comment on above: Performed By: #### L 3410.2400, L3300.1200, L500.4050, L501.6710, L3200.1100, L101.9900, L2100.0000, L5500.0550, L504.2610, L3100.5440, L100.0100, L3400.8000, L501.9520 #### [facility] [address] [place], [address] Albumin/Globulin [Mass ratio] 1.6 {ratio} Normal 0.9-2.4 [facility] Comment on above: Performed By: #### L 3410.2400, L3300.1200, L500.4050, L501.6710, L3200.1100, L101.9900, L2100.0000, L5500.0550, L504.2610, L3100.5440, L100.0100, L3400.8000, L501.9520 #### [facility] [address] [place], [address] ALK PHOS 52 U/L Normal 40-129 [facility] Comment on above: Performed By: #### L 3410.2400, L3300.1200, L500.4050, L501.6710, L3200.1100, L101.9900, L2100.0000, L5500.0550, L504.2610, L3100.5440, L100.0100, L3400.8000, L501.9520 #### [facility] [address] [place], [address] ALT [Catalytic activity/Vol] 20 U/L Normal <=46 [facility] Comment on above: Performed By: #### L 3410.2400, L3300.1200, L500.4050, L501.6710, L3200.1100, L101.9900, L2100.0000, L5500.0550, L504.2610, L3100.5440, L100.0100, L3400.8000, L501.9520 #### [facility] [place], [address] AST [Catalytic activity/Vol] 21 U/L Normal <=37 [facility] Comment on above: Performed By: #### L 3410.2400, L3300.1200, L500.4050, L501.6710, L3200.1100, L101.9900, L2100.0000, L5500.0550, L504.2610, L3100.5440, L100.0100, L3400.8000, L501.9520 #### [facility] [address] [place], [place], [id number] Bilirubin [Mass/Vol] 0.50 mg/dL Normal 0.00-1.30 [facility] Comment on above: Performed By: #### L 3410.2400, L3300.1200, L500.4050, L501.6710, L3200.1100, L101.9900, L2100.0000, L5500.0550, L504.2610, L3100.5440, L100.0100, L3400.8000, L501.9520 #### [facility] [address] [place], [place], [id number] BUN/CRE 18.7 RATIO Normal 10-20 [facility] Comment on above: Performed By: #### L 3410.2400, L3300.1200, L500.4050, L501.6710, L3200.1100, L101.9900, L2100.0000, L5500.0550, L504.2610, L3100.5440, L100.0100, L3400.8000, L501.9520 #### [facility] [address] [place], [place], [phone] (011) Calcium [Mass/Vol] 9.1 mg/dL Normal 7.6-11.0 [facility] Comment on above: Performed By: #### L 3410.2400, L3300.1200, L500.4050, L501.6710, L3200.1100, L101.9900, L2100.0000, L5500.0550, L504.2610, L3100.5440, L100.0100, L3400.8000, L501.9520 #### [facility] [address] [place], [place], [phone] (378) Chloride [Moles/Vol] 103 mmol/L Normal 98-108 [facility] Comment on above: Performed By: #### L 3410.2400, L3300.1200, L500.4050, L501.6710, L3200.1100, L101.9900, L2100.0000, L5500.0550, L504.2610, L3100.5440, L100.0100, L3400.8000, L501.9520 #### [facility] [address] [place], [address] (348) CO2 [Moles/Vol] 24.7 mmol/L Normal 21.0-32.0 [facility] Comment on above: Performed By: #### L 3410.2400, L3300.1200, L500.4050, L501.6710, L3200.1100, L101.9900, L2100.0000, L5500.0550, L504.2610, L3100.5440, L100.0100, L3400.8000, L501.9520 #### [facility] [address] [place], [address] Creatinine [Mass/Vol] 0.82 mg/dL Normal 0.70-1.20 [facility] Comment on above: Performed By: #### L 3410.2400, L3300.1200, L500.4050, L501.6710, L3200.1100, L101.9900, L2100.0000, L5500.0550, L504.2610, L3100.5440, L100.0100, L3400.8000, L501.9520 #### [facility] [address] [facility] [place], [address] GAP 11 Normal 5-15 [facility] Comment on above: Performed By: #### L 3410.2400, L3300.1200, L500.4050, L501.6710, L3200.1100, L101.9900, L2100.0000, L5500.0550, L504.2610, L3100.5440, L100.0100, L3400.8000, L501.9520 #### [facility] [address] [facility] [place], [address] GFR/1.73 sq M.predicted among non-blacks MDRD (S/P/Bld) [Vol rate/Area] 113 mL/min/{1.73_m2} Normal >60 [facility] Comment on above: Result Comment: mL/m in/1.73m2 CKD-EPI Creatinine Equation (2020) Performed By: #### L 3410.2400, L3300.1200, L500.4050, L501.6710, L3200.1100, L101.9900, L2100.0000, L5500.0550, L504.2610, L3100.5440, L100.0100, L3400.8000, L501.9520 #### [facility] [address] [place], [address] (283) Globulin (S) [Mass/Vol] 3.0 g/dL Normal 2.2-4.2 [facility] Comment on above: Performed By: #### L 3410.2400, L3300.1200, L500.4050, L501.6710, L3200.1100, L101.9900, L2100.0000, L5500.0550, L504.2610, L3100.5440, L100.0100, L3400.8000, L501.9520 #### [facility] [address] [place], [address] Glucose [Mass/Vol] 98 mg/dL Normal 70-99 [facility] Comment on above: Performed By: #### L 3410.2400, L3300.1200, L500.4050, L501.6710, L3200.1100, L101.9900, L2100.0000, L5500.0550, L504.2610, L3100.5440, L100.0100, L3400.8000, L501.9520 #### [facility] [address] [place], [address] Potassium [Moles/Vol] 4.0 mmol/L Normal 3.3-5.1 [facility] Comment on above: Performed By: #### L 3410.2400, L3300.1200, L500.4050, L501.6710, L3200.1100, L101.9900, L2100.0000, L5500.0550, L504.2610, L3100.5440, L100.0100, L3400.8000, L501.9520 #### [facility] [address] [place], [address] Sodium [Moles/Vol] 139 mmol/L Normal 133-145 [facility] Comment on above: Performed By: #### L 3410.2400, L3300.1200, L500.4050, L501.6710, L3200.1100, L101.9900, L2100.0000, L5500.0550, L504.2610, L3100.5440, L100.0100, L3400.8000, L501.9520 #### [facility] [address] [place], [address] T PROT 7.7 g/dL Normal 5.9-8.4 [facility] Comment on above: Performed By: #### L 3410.2400, L3300.1200, L500.4050, L501.6710, L3200.1100, L101.9900, L2100.0000, L5500.0550, L504.2610, L3100.5440, L100.0100, L3400.8000, L501.9520 #### [facility] [address] [place], [address] Urea nitrogen [Mass/Vol] 15 mg/dL Normal 4-19 [facility] Comment on above: Performed By: #### L 3410.2400, L3300.1200, L500.4050, L501.6710, L3200.1100, L101.9900, L2100.0000, L5500.0550, L504.2610, L3100.5440, L100.0100, L3400.8000, L501.9520 #### [facility] [address] [place], [address] Eosinophil percentageOrdered By: Jaquan Flores on 11-09-2024 Eosinophils/100 WBC (Bld) 2.0 % 0-5 [facility] Erythrocyte Sed Rateon 11-09 SED RATE 6 mm/hr Normal 0-20 [facility] Comment on above: Performed By: #### L 3410.2400, L3300.1200, L500.4050, L501.6710, L3200.1100, L101.9900, L2100.0000, L5500.0550, L504.2610, L3100.5440, L100.0100, L3400.8000, L501.9520 #### [facility] [address] [place], [address] Erythrocyte distribution wid th ratioOrdered By: Jaquan Flores on 11-09-2024 Erythrocyte distribution width (RBC) [Ratio] 11.8 % 11.6-14.6 [facility] Erythrocyte distribution wid th standard deviationOrdered By: Jaquan Flores on 11-09-2024 Erythrocyte distribution width (RBC) [Ratio] 37.9 fl 35.1-43.9 [facility] Erythrocyte sedimentation ra teOrdered By: Jaquan Flores on 11-09-2024 ESR (Bld) [Velocity] 6 mm/h 0-20 [facility] Gastroenterology Visit Repor ton 11-09-2024 Gastroenterology Visit Report [facility] [address] [place] [address] OFFICE VISIT Date of Service: 11/09/24 MR#: [id number] Acct: [id number] Name: LIBBY WOODS Rep #: [id number] : 1985 Provider: Jaquan Flores DO Age/Sex: 39/M [place] [facility] [place]: [place]igned Intake Vital Signs 08/12/23 14:15 [...] any questions or concerns at this time. [facility] Medical History (Updated 11/09/24 @ 08:32 by [...] disease (IBD) but has not seen a advanced manufacturing technician. He denies a recent history of fever, [...] Resp Effo (more content not included)... Normal [facility] Glomerular filtration rate ( GFR) estimation/1.73 sq m using serum, plasma, or whole bOrdered By: Jaquan Flores on 11-09-2024 GFR/1.73 sq M.predicted among non-blacks MDRD (S/P/Bld) [Vol rate/Area] 111 mL/min/{1.73_m2} >60 [facility] Comment on above: mL/min/1.73m2 CKD-EP I Creatinine Equation (2020) Hematocrit Auto (Bld) [Volum e fraction]Ordered By: Jaquan Flores on 11-09-2024 Hematocrit (Bld) [Volume fraction] 44.8 % 40-54 [facility] Hemoglobin measurementOrdere d By: Jaquan Flores on 11-09-2024 Hemoglobin (Bld) [Mass/Vol] 15.1 g/dL 13.0-16. 5 [facility] IgEOrdered By: Jaquan delgado on 11-09-2024 IgE 14 IU/mL 6-495 [facility] Immature granulocytes/100 WB C Auto (Bld)Ordered By: Jaquan Flores on 11-09-2024 Immature granulocytes/100 WBC (Bld) 0.500 % 0.0-0.9 [facility] Comment on above: IG% - Immature Granu locytes (promyelocytes, myelocytes and metamyelocytes) > 1% indicates that a LEFT SHIFT is Present. LDHon 11-09-2024 LDH 227 U/L Normal 87-241 [facility] Comment on above: Order Comment: 1 Performed By: #### L 3410.2400, L3300.1200, L500.4050, L501.6710, L3200.1100, L101.9900, L2100.0000, L5500.0550, L504.2610, L3100.5440, L100.0100, L3400.8000, L501.9520 #### [facility] [address] [place], [address] LDL calc ser/plasOrdered By: Jaquan Flores on 11-09-2024 Cholesterol in LDL [Mass/Vol] 104 mg/dL [facility] Comment on above: Bfyksdckvc=165-977 m g/dL & Higher Caya=991 mg/dL or greaterFriedwald Equation for LDL-C Laboratory - Chemistry and C hemistry - challengeOrdered By: Jaquan Flores on 11-09-2024 AST [Catalytic activity/Vol] 22 U/L <38 [facility] Laboratory - Miscellaneous t estsOrdered By: Jaquan Flores on 11-09-2024 Laboratory comment Rajan (Report) Comment . [facility] Comment on above: Pattern is not sugge stive of Inflammatory Bowel Disease Service comment (Unsp spec) [Interp] Comment . [facility] Comment on above: Levels of Specific I [...] 11-09-2024 LDH [Catalytic activity/Vol] 227 U/L 87-241 [facility] Laminaribioside carbohydrate IgG antibody assayOrdered By: Jaquan Flores on 11-09-2024 Laminaribioside IgG IA Qn 4 units 0-60 [facility] Comment on above: Negative:<55 Equivoc al: 55-60 Positive: >60 Lipid Profileon 11-09-2024 CHOL:HDL 6.10 Normal [facility] Comment on above: Performed By: #### L 3410.2400, L3300.1200, L500.4050, L501.6710, L3200.1100, L101.9900, L2100.0000, L5500.0550, L504.2610, L3100.5440, L100.0100, L3400.8000, L501.9520 #### [facility] [address] [place], [address] Cholesterol [Mass/Vol] 194 mg/dL Normal <=200 [facility] Comment on above: Result Comment: Chol esterol level, Desirable <200 mg/dL Borderline high cholesterol 200-239 mg/dL High cholesterol >=240 mg/dL Recommendations of the NCEP Adult Treatment Panel for the following risk-cutoff thresholds for the [place] population. Performed By: #### L 3410.2400, L3300.1200, L500.4050, L501.6710, L3200.1100, L101.9900, L2100.0000, L5500.0550, L504.2610, L3100.5440, L100.0100, L3400.8000, L501.9520 #### [facility] [address] [place], [address] Cholesterol in HDL [Mass/Vol] 32 mg/dL Low [facility] Comment on above: Result Comment: Clarice onal [...] L5500.0550, L504.2610, L3100.5440, L100.0100, L3400.8000, L501.9520 #### [facility] [address] [place], [place], [phone] ([phone] Cholesterol in LDL [Mass/Vol] 104 mg/dL Normal [facility] Comment on above: Result Comment: Bord hgboaa=554-718 mg/dL Higher Qhit=362 mg/dL or greater Friedwald Equation for LDL-C Performed By: #### L 3410.2400, L3300.1200, L500.4050, L501.6710, L3200.1100, L101.9900, L2100.0000, L5500.0550, L504.2610, L3100.5440, L100.0100, L3400.8000, L501.9520 #### [facility] [address] [place], [address] Cholesterol in VLDL [Mass/Vol] 58 mg/dL High 5-40 [facility] Comment on above: Performed By: #### L 3410.2400, L3300.1200, L500.4050, L501.6710, L3200.1100, L101.9900, L2100.0000, L5500.0550, L504.2610, L3100.5440, L100.0100, L3400.8000, L501.9520 #### [facility] [address] [place], [address] Triglyceride [Mass/Vol] 292 mg/dL High [facility] Comment on above: Result Comment: The drugs N-Acetylcysteine and Metamizole may falsely depress this assay. Normal range: <150 mg/dL Borderline High: 150-199 mg/dL High: 200-499 mg/dL Very High: >500 mg/dL Performed By: #### L 3410.2400, L3300.1200, L500.4050, L501.6710, L3200.1100, L101.9900, L2100.0000, L5500.0550, L504.2610, L3100.5440, L100.0100, L3400.8000, L501.9520 #### [facility] [address] [place], [address] MCV (mean corpuscular volume ) determinationOrdered By: Jaquan Flores on 11-09-2024 MCV (RBC) [Entitic vol] 87.8 fL 80-94 [facility] Mean corpuscular hemoglobin (MCH) determinationOrdered By: Jaquan Flores on 11-09-2024 MCH (RBC) [Entitic mass] 29.6 pg 27.0-32.0 [facility] Mean corpuscular hemoglobin concentration (MCHC) determinationOrdered By: Jaquan Flores on 11-09-2024 MCHC (RBC) [Mass/Vol] 33.7 g/dL 32-36 [facility] Mean platelet volume determi nationOrdered By: Jaquan Flores on 11-09-2024 Platelet mean volume (Bld) [Entitic vol] 8.7 fL 6.2-12.0 [facility] Monocyte percentageOrdered B y: Jaquan Flores on 11-09-2024 Monocytes/100 WBC (Bld) 8.2 % 0-10 [facility] Neutrophil percentageOrdered By: Jaquan Flores on 11-09-2024 Neutrophils/100 WBC (Bld) 56.3 % 47-70 [facility] Nucleated red blood cell per centageOrdered By: Jaquan Flores on 11-09-2024 Nucleated RBC/100 WBC (Bld) [Ratio] 0 % 0-5 [facility] Platelet countOrdered By: Ra igor Flores on 11-09-2024 Platelets (Bld) [#/Vol] 326 10*3/uL 150-450 [facility] Potassium measurement (mass/ volume)Ordered By: Jaquan Flores on 11-09-2024 Potassium (Unsp spec) [Mass/Vol] 4.0 mmol/L 3.3-5.1 [facility] Qualitative QuantiFERON-TB g old in tube testOrdered By: Jaquan Flores on 11-09-2024 M. tuberculosis tuberculin stim IFN-g Ql (Bld) 0.10 IU/mL . [facility] RBC Auto (Bld) [#/Vol]Ordere d By: Jaquan Flores on 11-09-2024 RBC (Bld) [#/Vol] 5.10 10*6/uL 4.6-6.2 [facility] Screening total cholesterol/ high density lipoprotein (HDL) cholesterol ratioOrdered By: Jaquan Flores on 11-09-2024 Cholesterol.total/Cholester ol in HDL [Mass ratio] 6.10 {ratio} [facility] Serum DNA double strand anti body assay (units/volume)Ordered By: Jaquan Flores on 11-09-2024 DNA double strand Ab Qn (S) [IU]/mL 0-9 [facility] Comment on above: Negative <5 Equivoca l 5 - 9 Positive >9 Serum Scl-70 antibody assay (units/volume)Ordered By: Jaquan Flores on 11-09-2024 SCL-70 extractable nuclear Ab Qn (S) <0.2 AI 0.0-0.9 [facility] Comment on above: Previous reported re sult: TNP AIEdited by: JACKIE on 11/13/24:0107 AMENDED REPORT 11/13/24106 ANTISCLER previously reported as: Test not performed Serum beef IgE antibody assa y (units/volume)Ordered By: Jaquan Flores on 11-09-2024 Beef IgE Qn (S) <0.10 kU/L Class 0 [facility] Serum classic neutrophil cyt oplasmic antibody assay (units/volume)Ordered By: Jaquan Flores on 11-09-2024 Neutrophil cytoplasmic Ab.classic Qn (S) <1:20 titer Neg:<1:20 [facility] Serum codfish IgE antibody a ssay (units/volume)Ordered By: Jaquan Flores on 11-09-2024 Codfish IgE Qn (S) <0.10 kU/L Class 0 [facility] Serum corn IgE antibody assa y (units/volume)Ordered By: Jaquan Flores on 11-09-2024 [place] IgE Qn (S) <0.10 kU/L Class 0 [facility] Serum cow milk IgE antibody assay (units/volume)Ordered By: Jaquan Flores on 11-09-2024 Cow milk IgE Qn (S) <0.10 kU/L Class 0 [facility] Serum creatinine measurement (mass/volume)Ordered By: Jaquan Flores on 11-09-2024 Creatinine [Mass/Vol] 0.87 mg/dL 0.70-1.20 [facility] Serum globulin measurementOr dered By: Jaquan Flores on 11-09-2024 Globulin (S) [Mass/Vol] 3.0 g/dL 2.2-4.2 [facility] Serum glucose measurement (m ass/volume)Ordered By: Jaquan Flores on 11-09-2024 Glucose [Mass/Vol] 100 mg/dL High 70-99 [facility] Serum or plasma C reactive p rotein measurement (mass/volume)Ordered By: Jaquan Flores on 11-09-2024 CRP [Mass/Vol] 4.85 mg/L High 0.0-3.0 [facility] Serum or plasma IgA measurem ent (mass/volume)Ordered By: Jaquan Flores on 11-09-2024 IgA [Mass/Vol] 132 mg/dL 90-386 [facility] Serum or plasma IgG measurem ent (mass/volume)Ordered By: Jaquan Flores on 11-09-2024 IgG [Mass/Vol] 1126 mg/dL 603-1613 [facility] Serum or plasma alanine barnett otransferase (ALT) measurementOrdered By: Jaquan Flores on 11-09-2024 ALT [Catalytic activity/Vol] 23 U/L <47 [facility] Serum or plasma albumin kendall urement (mass/volume)Ordered By: Jaquan Flores on 11-09-2024 Albumin [Mass/Vol] 4.7 g/dL 3.5-5.0 [facility] Serum or plasma albumin/glob ulin mass ratioOrdered By: Jaquan Flores on 11-09-2024 Albumin/Globulin [Mass ratio] 1.6 {ratio} 0.9-2.4 [facility] Serum or plasma alkaline willow sphatase measurementOrdered By: Jaquan Flores on 11-09-2024 ALP [Catalytic activity/Vol] 51 U/L 40-129 [facility] Serum or plasma calcium kendall urement (mass/volume)Ordered By: Jaquan Flores on 11-09-2024 Calcium [Mass/Vol] 9.1 mg/dL 7.6-11.0 [facility] Serum or plasma cholesterol in HDL measurement (mass/volume)Ordered By: Jaquan Flores on 11-09-2024 Cholesterol in HDL [Mass/Vol] 32 mg/dL Low >40 [facility] Comment on above: National Cholesterol Education Program (NCEP) guidelines:<40 mg/dL: Low HDL-cholesterol (major risk factor for CHD)>= 60 mg/dL: High HDL-cholesterol (negative risk factor for CHD)HDL-cholesterol is affected by a number of factors, e.g. smoking, exercise, hormones, sex and age. Serum or plasma cholesterol measurement (mass/volume)Ordered By: Jaquan Flores on 11-09-2024 Cholesterol [Mass/Vol] 194 mg/dL <201 [facility] Comment on above: Cholesterol level, D esirable <200 mg/dLBorderline high cholesterol 200-239 mg/dLHigh cholesterol >=240 mg/dLRecommendations of the NCEP Adult Treatment Panel for the following risk-cutoff thresholds for the [place] population. Serum or plasma mannobioside IgG antibody assay by immunoassay (units/volume)Ordered By: Jaquan Flores on 11-09-2024 Mannobioside IgG IA Qn 28 units 0-100 [facility] Comment on above: Negative: <90 [employer] kalani: 90-100 Positive: >100 This test was developed and its performance characteristics determined by [employer]. It has not been cleared or approved by the Food and Drug Administration. The FDA has determined that such clearance or approval is not necessary. Serum or plasma urea nitroge n measurement (mass/volume)Ordered By: Jaquan Flores on 11-09-2024 Urea nitrogen [Mass/Vol] 15 mg/dL 4-19 [facility] Serum peanut IgE antibody as say (units/volume)Ordered By: Jaquan Flores on 11-09-2024 Peanut IgE Qn (S) <0.10 kU/L Class 0 [facility] Serum perinuclear neutrophil cytoplasmic antibody titer by immunofluorescenceOrdered By: Jaquan Flores on 11-09-2024 Neutrophil cytoplasmic Ab.perinuclear IF (S) [Titer] <1:20 titer Neg:<1:20 [facility] Comment on above: The presence of posi tive fluorescence exhibiting P-ANCA orC-ANCA patterns alone is not specific for the diagnosis ofWegener's Granulomatosis (WG) or microscopic polyangiitis.Decisions about treatment should not be based solely onANCA IFA results. The International ANCA Group Consensusrecommends follow up testing of positive sera with both WI-3 and MPO-ANCA enzyme immunoassays. As many as 5% serumsamples are positive only by EIA. Ref. AM J Clin Dwbgrs0125;111:507-513. Serum pork IgE antibody assa y (units/volume)Ordered By: Jaquan Flores on 11-09-2024 Pork IgE Qn (S) <0.10 kU/L Class 0 [facility] Serum salmon IgE antibody as say (units/volume)Ordered By: Jaquan Flores on 11-09-2024 [place] IgE Qn (S) <0.10 kU/L Class 0 [facility] Serum soybean IgE antibody a ssay (units/volume)Ordered By: Jaquan Flores on 11-09-2024 Soybean IgE Qn (S) <0.10 kU/L Class 0 [facility] Serum tissue transglutaminas e (tTG) IgA antibody assay (units/volume)Ordered By: Jaquan Flores on 11-09-2024 tTG IgA Qn (S) <2 U/mL 0-3 [facility] Comment on above: Negative 0 - 3 Weak Positive 4 - 10 Positive >10 Tissue Transglutaminase (tTG) has been identified as the endomysial antigen. Studies have demonstr- ated that endomysial IgA antibodies have over 99% specificity for gluten sensitive enteropathy. Serum tuna IgE antibody assa y (units/volume)Ordered By: Jaquan Flores on 11-09-2024 Tuna IgE Qn (S) <0.10 kU/L Class 0 [facility] Serum wheat IgE antibody ass ay (units/volume)Ordered By: Jaquan Flores on 11-09-2024 Wheat IgE Qn (S) <0.10 kU/L Class 0 [facility] Serum whole egg IgE antibody assay (units/volume)Ordered By: Jaquan Flores on 11-09-2024 Whole Egg IgE Qn (S) <0.10 kU/L Class 0 [facility] Comment on above: Performed at: [address] [id number] Director: Derrick Duran PhD, Phone: [phone] at: [address] [id number] Director: Luis Daniel Castillo MD, Phone: [phone] Sodium levelOrdered By: Adriana Beal on 11-09-2024 Sodium [Moles/Vol] 139 mmol/L 133-145 [facility] TSH DL <= 0.005 mIU/L QnOrde red By: Jaquan Flores on 11-09-2024 TSH Qn 1.330 uIU/mL 0.300-4.200 [facility] Thyroid Stim Hormone (TSH)on 11-09-2024 TSH 1.330 uIU/mL Normal 0.300-4.200 [facility] Comment on above: Performed By: #### L 3410.2400, L3300.1200, L500.4050, L501.6710, L3200.1100, L101.9900, L2100.0000, L5500.0550, L504.2610, L3100.5440, L100.0100, L3400.8000, L501.9520 #### [facility] [address] [place], [address] Total proteinOrdered By: Ozzy Flores on 11-09-2024 Protein [Mass/Vol] 7.8 g/dL 5.9-8.4 [facility] Triglycerides measurementOrd ered By: Jaquan Flores on 11-09-2024 Triglyceride [Mass/Vol] 292 mg/dL High <199 [facility] Comment on above: The drugs N-Acetylcy steine and Metamizole may falsely depress this assay. Normal range: <150 mg/dLBorderline High: 150-199 mg/dLHigh: 200-499 mg/dLVery High: >500 mg/dL White blood cell (WBC) count Ordered By: Jaquan Flores on 11-09-2024 WBC (Bld) [#/Vol] 8.2 10*3/uL 4.4-11.0 [facility] CNOVon 08-10-2024 CNOV Office Visit (AGGHWB ) LIBBY WOODS ([id number]) 1985 M Date Time Provider Department 08/10/24 11:00 AM SAURABH RIDDLE AGGHWB During your visit today, we recorded the following information about you: Pulse Blood pressure Weight Height 80/minute 115/80 113.4 kg 2.007 m Saurabh Riddle MD 08/10/2024 11:52 AM Signed Saurabh Riddle M.D. Colon AND Rectal Surgery [address] [facility], [address] [place] [id number] DOMINGA Woods is a 39 year old [...] This office note has been created using APROOFED, a speech recognition software program, and may [...] for Encounter Date Provider Department Center 08/10/2024 [id number] , STE*AGGHWB [facility] (more content not included)... Normal [facility] ANES POSTPROC EVALon 025 ANES POSTPROC EVAL HNO ID: [id number] Author: FERNANDO SMALL DO Service: Anesthesiology Author Type: Anesthesiologist Type: Anesthesia Postprocedure Evaluation Filed: 07/19/2024 08:58 Note Text: POST ANESTHESIA EVALUATION NOTE : 1985 Procedure Summary Date: 07/19/24 Room / Location: [facility] / [facility] Anesthesia Start: 728 Anesthesia Stop: 806 Procedures: [...] July 19, 2024 TIME: 8:58 AM CSN: [id number] [facility] ANES PRE-OPon 07-19-2024 ANES PRE-OP HNO ID: [id number] Author: FERNANDO SMALL DO Service: Anesthesiology Author Type: Anesthesiologist Type: Anesthesia Preprocedure Evaluation Filed: 07/19/2024 07:04 Note Text: ANESTHESIOLOGY DAY OF SURGERY NOTE : 1985 Procedure Information Date/Time: 07/19/24729 Procedures: EXAM UNDER ANESTHESIA RECTAL (Anus) FISTULOTOMY VS SETON Location: [place] [address] / [facility] Surgeons: Saurabh Riddle MD Estimated body mass [...] July 19, 2024 TIME: 7:03 AM CSN: [id number] [facility] OPERATIVE NOon 07-19-2024 OPERATIVE NO HNO ID: [id number] Author: SAURABH RIDDLE MD Service: General Surgery Author Type: Physician Type: Operative Report Filed: 07/19/2024 08:15 Note Text: DEPARTMENT OF SURGERY OPERATIVE NOTE Log ID: [id number] Surgery Date: 07/19/2024 Incision/Procedure Start Time: 7:39 AM Incision Close/Procedure End Time: 7:59 AM Surgeon(s) and Fish House Worker(s): Surgeons and Role: * Saurabh Riddle MD [...] MD July 19, 2024 8:08 AM Normal [facility] HISTORY PHYSICALon HISTORY PHYSICAL HNO ID: [id number] Author: YANETH MATTSON APRN.CNP Service: ? Author [...] 39 year old male who presents to [facility] for the above procedure. Patient reports a [...] fibrillation, CAD, chest pain, DVT/PE and recent NH. GI: Negative for: abdominal pain, dysphagia, hepatitis, [...] Prior t (more content not included)... Normal [facility] Anjana 06-21-2024 [facility] Telephone (AGGENS3) LIBBY WOODS ([id number]) 1985 M Date Time Provider Department 06/21/24 SAURABH RIDDLE3 During your visit today, we recorded the following information about you: Marni Bolanos 06/21/2024 11:23 AM Signed Surgery Checklist Type: EUA, FISTULOTOMY VS SETON Admission Type: outpatient Anesthesia: MAC Date: 08/03/24 Arrival Time: 11:00 AM Surgery Time: 1:00 PM Location: [place] [facility] 06/25/2024 11:20 AM [...] Status:Closed by MARNI BOLANOS on 06/21/24 Normal [facility] CNOVon 06-15-2024 CNOV Office Visit (AGGHWB ) LIBBY WOODS ([id number]) 1985 M Date Time Provider Department 06/15/24 8:00 AM SAURABH RIDDLE AGGHWAlexandria During your visit today, we recorded the following information about you: Pulse Blood pressure Weight 77/minute 112/79 113.4 kg Saurabh Riddle MD 06/15/2024 9:31 AM Signed Saurabh Riddle M.D. Colon AND Rectal Surgery [address] [facility], [address] [place] [id number] SUBJECTIVE Libby Woods is a 39 year [...] the firs (more content not included)... Normal [facility] 05-23-2024 [facility] Telephone (AGGENS3) LIBBY WOODS ([id number]) 1985 M Date Time Provider Department 05/23/24 [...] Encounter Status:Closed by [facility] Office Visit (AGGENS3) LIBBY WOODS ([id number]) 1985 M Date Time Provider Department 01/11/24 3:00 PM SAURABH RIDDLE AGGENS3 During your visit today, we recorded the following information about you: Pulse Blood pressure Height 79/minute 108/73 2.007 m Saurabh Riddle MD 01/11/2024 3:24 PM Signed Saurabh Riddle M.D. Colon AND Rectal Surgery [address] [facility], [address] [place] [phone] SUBJECTIVE Libby Woods is a 39 year [...] This office note has been created using APROOFED, a speech recognition software program, and may [...] Status:Closed by SAURABH RIDDLE on 01/11/24 Normal [facility] ANES POSTPROC EVALon 024 ANES POSTPROC EVAL HNO ID: [id number] Author: REJI TODD MD Service: Anesthesiology Author Type: Physician Type: Anesthesia Postprocedure Evaluation Filed: 12/27/2023 17:09 Note Text: POST ANESTHESIA EVALUATION NOTE : 1985 Procedure Summary Date: 12/27/23 Room / Location: [facility] OR / [facility] OR Anesthesia Start: 1237 Anesthesia Stop: 1323 [...] December 27, 2023 TIME: 5:08 PM CSN: [id number] [facility] ANES PRE-OPon 12-27-2023 ANES PRE-OP HNO ID: [id number] Author: MEG PENA MD Service: Anesthesiology Author Type: Anesthesiologist Type: Anesthesia Preprocedure Evaluation Filed: 12/27/2023 11:11 Note Text: ANESTHESIOLOGY DAY OF SURGERY NOTE : 1985 Procedure Information Date/Time: 12/27/23 1145 Procedures: EXAM UNDER ANESTHESIA RECTAL (Anus) FISTULOTOMY VS SETON Location: [place] / [place] OR Surgeons: Sauarbh Riddle MD Estimated body mass index is [...] December 27, 2023 TIME: 11:05 AM CSN: [id number] Normal [facility] HISTORY PHYSICALon HISTORY PHYSICAL HNO ID: [id number] Author: SAURABH RIDDLE MD Service: General Surgery [...] This office note has been created using APROOFED, a speech recognition software program, and may contain errors including punctuation, grammar, spelling, gender, and inappropriate words or phrases that pertain to the sytem. UPDATED HISTORY AND PHYSICAL EXAMINATION SERVICE DATE: 12/27/2023 SERVICE TIME: 12/27/2023 SENSITIVE EXAMINATION CONSENT: The sensitive examination was discussed with the Patient or Patient's Authorized Spring Repairer Helper Hand. As applicable, any other physician, advance practice provider, medical student, or other health professional student that will be observing or involved in the sensitive examination for educational or training purposes was discussed with the Patient or Authorized Spring Repairer Helper Hand. The Patient or Authorized Spring Repairer Helper Hand has agreed to proceed with the sensitive [...] DATE: December 27, 2023 TIME: 12:[address] [facility] OPERATIVE NOon 12-27-2023 OPERATIVE NO HNO ID: [id number] Author: SAURABH RIDDLE MD Service: Colorectal Author Type: Physician Type: Operative Report Filed: 12/27/2023 13:23 Note Text: DEPARTMENT OF SURGERY OPERATIVE NOTE Log ID: [id number] Surgery Date: 12/27/2023 Incision/Procedure Start Time: 12:56 PM Incision Close/Procedure End Time: 1:12 PM Surgeon(s) and Fish House Worker(s): Surgeons and Role: * Saurabh Riddle MD [...] MD December 27, 2023 1:18 PM Normal [facility] 12-12-2023 [facility] Telephone (AGGENS3) LIBBY WOODS ([id number]) 1985 M Date Time Provider Department 12/12/23 ASURABH RIDDLE AGGENS3 During your visit today, we [...] Encounter Status:Closed by MARNI BOLANOS on 12/12/23 [facility] CNPN Telephone (AGGENS3) LIBBY WOODS ([id number]) 1985 M Date Time Provider Department 12/12/23 SAURABH RIDDLE AGGENS3 During your visit today, we recorded the following information about you: Marni Bolanos 12/15/2023 1:24 PM Addendum Surgery Checklist Type: EUA, FISTULOTOMY VS SETON Admission Type: outpatient Anesthesia: MAC Date: 12/27/23 Arrival Time: 9:45 AM Surgery Time: 11:45 AM Location: [facility] Allergies As of Date: [...] Encounter Status:Closed by MARNI BOLANOS on 12/12/23 [facility] CNOVon 12-09-2023 CNOV Office Visit (AGGHWB ) LIBBY WOODS ([id number]) 1985 M Date Time Provider Department 12/09/23 9:30 AM SAURABH RIDDLE During your visit today, we recorded the following information about you: Pulse Blood pressure Weight Height 80/minute 125/84 113.4 kg 2.007 m Saurabh Riddle MD 12/09/2023 11:01 AM Signed Saurabh Riddle M.D. Colon AND Rectal Surgery [address] [facility], [address] [place] [address] [facility] Libby Woods is a 38 year old [...] He is (more content not included)... Normal [facility] Absolute lymphocyte countOrd ered By: Linda Cazares on 02-15-2023 Lymphocytes Auto (Unsp spec) [#/Vol] 2.15 10*3/uL 0.83-4.51 [facility] Basophil percentageOrdered B y: Linda Cazares on 02-15-2023 Basophils/100 WBC (Bld) 0.6 % 0-1 [facility] Bilirubin [Mass/Vol] 0.30 mg/dL 0.20-1.00 [facility] Comment on above: For patients on eltr ombopag therapy, use of Dimension [place] TBIL is not recommended. Chloride [Moles/Vol] 108 mmol/L 98-107 [facility] Cholesterol [Mass/Vol] 202 mg/dL <200 [facility] Comment on above: <200 mg/dL Desirable 200-240 mg/dL Borderline >240 mg/dL High Risk Eosinophils/100 WBC (Bld) 0.8 % 0-5 [facility] Glucose [Mass/Vol] 106 mg/dL 74-106 [facility] Comment on above: Fasting Glucose resu lt from 100 to 125 mg/dL suggests IMPAIRED HOMEOSTASIS per A.D.A. criteria. Neutrophils (Bld) [#/Vol] 5.4 10*3/uL 2.0-7.7 [facility] Neutrophils/100 WBC (Bld) 64.6 % 47-70 [facility] Potassium [Moles/Vol] 4.8 mmol/L 3.5-5.1 [facility] Comment on above: Slight Hemolysis, Re sult may be falsely increased. Protein [Mass/Vol] 7.5 g/dL 6.4-8.2 [facility] Sodium [Moles/Vol] 143 mmol/L 136-145 [facility] Triglyceride [Mass/Vol] 559 mg/dL <199 [facility] Comment on above: The drugs N-Acetylcy steine and Metamizole may falsely depress this assay. TRIGLYCERIDE IS GREATER THAN 400 mg/dL. LDL RESULT IS INVALID AND WILL NOT BE REPORTED.Serum Triglycerides Reference Interval Normal <150 mg/dL Borderline high 150 - 199 mg/dL High 200 - 499 mg/dL Very High > or = 500 mg/dL WBC (Bld) [#/Vol] 8.4 10*3/uL 4.4-11.0 [facility] Blood erythrocytes count (nu mber/volume)Ordered By: Linda Cazares on 02-15-2023 RBC (Bld) [#/Vol] 5.07 10*6/uL 4.6-6.2 [facility] Blood hemoglobin measurement (mass/volume)Ordered By: Linda Cazares on 02-15-2023 Hemoglobin (Bld) [Mass/Vol] 14.9 g/dL 13.0-16. 5 [facility] Blood lymphocytes/100 leukoc ytesOrdered By: Linda Cazares on 02-15-2023 Lymphocytes/100 WBC (Bld) 25.7 % 19-41 [facility] Blood monocytes/100 leukocyt esOrdered By: Linda Cazares on 02-15-2023 Monocytes/100 WBC (Bld) 7.9 % 0-10 [facility] Blood platelet mean volumeOr dered By: Linda Cazares on 02-15-2023 Platelet mean volume (Bld) [Entitic vol] 9.6 fL 6.2-12.0 [facility] Determination of erythrocyte mean corpuscular volume (MCV)Ordered By: Linda Cazares on 02-15-2023 MCV (RBC) [Entitic vol] 89.2 fL 80-94 [facility] Hematocrit Auto (Bld) [Volum e fraction]Ordered By: Linda Cazares on 02-15-2023 Hematocrit (Bld) [Volume fraction] 45.2 % 40-54 [facility] Laboratory - Chemistry and C hemistry - challengeOrdered By: Linda Cazares on 02-15-2023 ALP [Catalytic activity/Vol] 48 U/L 45-117 [facility] ALT [Catalytic activity/Vol] 43 U/L 16-61 [facility] CO2 [Moles/Vol] 29.0 mmol/L 21.0-32.0 [facility] Globulin (S) [Mass/Vol] 3.5 g/dL 2.2-4.2 [facility] Urea nitrogen/Creatinine [Mass ratio] 17.0 mg/mg 10-20 [facility] - Hematology and Cell countsOrdered By: Linda Cazares on 02-15-2023 Erythrocyte distribution width (RBC) [Entitic vol] 39.5 fL 35.1-43.9 [facility] Erythrocyte distribution width (RBC) [Ratio] 12.2 % 11.6-14.6 [facility] Immature granulocytes/100 WBC (Bld) 0.400 % 0.0-0.9 [facility] Comment on above: IG% - Immature Granu locytes (promyelocytes, myelocytes and metamyelocytes) > 1% indicates that a LEFT SHIFT is Present. MCH (RBC) [Entitic mass] 29.4 pg 27.0-32.0 [facility] Nucleated RBC/100 WBC (Bld) [Ratio] 0 % 0-5 [facility] MCHC Auto (RBC) [Mass/Vol]Or dered By: Linda Cazares on 02-15-2023 MCHC (RBC) [Mass/Vol] 33.0 g/dL 32-36 [facility] No Panel InformationOrdered By: Linda Cazares on 02-15-2023 Estimated GFR (MDRD) Amer 93 mL/min >60 [facility] Comment on above: GFR Calc Estimated GFR (MDRD) Non-Af Amer 77 mL/min >60 [facility] Comment on above: Non- GFR Calc Platelets bldOrdered By: Denise Cazares on 02-15-2023 Platelets (Bld) [#/Vol] 321 10*3/uL 150-450 [facility] Serum or plasma albumin kendall urement (mass/volume)Ordered By: Linda Cazares on 02-15-2023 Albumin [Mass/Vol] 4.0 g/dL 3.2-5.0 [facility] Serum or plasma albumin/glob ulin mass ratioOrdered By: Linda Cazares on 02-15-2023 Albumin/Globulin [Mass ratio] 1.1 {ratio} 0.9-2.4 [facility] Serum or plasma calcium kendall urement (mass/volume)Ordered By: Linda Cazares on 02-15-2023 Calcium [Mass/Vol] 9.0 mg/dL 8.5-10.1 [facility] Serum or plasma cholesterol in HDL measurement (mass/volume)Ordered By: Linda aCzares on 02-15-2023 Cholesterol in HDL [Mass/Vol] 31 mg/dL >40 [facility] Comment on above: The drugs N-Acetylcy steine and Metamizole may falsely depress this assay. Reference Range HDL <40 mg/dL Low HDL Cholesterol HDL >or= 60 mg/dL High HDL Cholesterol Serum or plasma cholesterol in VLDL measurement (mass/volume)Ordered By: Linda Cazares on 02-15-2023 Cholesterol in VLDL [Mass/Vol] [facility] Comment on above: Test not performed Serum or plasma creatinine m easurement (mass/volume)Ordered By: Linda Cazares on 02-15-2023 Creatinine [Mass/Vol] 1.12 mg/dL 0.70-1.30 [facility] Comment on above: The validity of the calculated GFR & GFRAA in patients over 70 years has not been determined. Clinical correlation is essential. Serum or plasma low density lipoprotein (LDL) cholesterol measurement (mass/volume)Ordered By: Linda Cazares on 02-15-2023 Cholesterol in LDL [Mass/Vol] [facility] Comment on above: Test not performed Serum or plasma urea nitroge n measurement (mass/volume)Ordered By: Linda Cazares on 02-15-2023 Urea nitrogen [Mass/Vol] 19 mg/dL 7-18 [facility] Thin prep Papanicolaou smear with manual screeningOrdered By: Linda Cazares on 02-15-2023 Thin prep Papanicolaou smear with manual screening 19 U/L 15-37 [facility] Comment on above: Slight Hemolysis, Re sult may be falsely increased. Thin prep Papanicolaou smear with manual screening 6 5-15 [facility] Vital Signs Date Time Vital Sign Value Performing Clinician [facility] short 08-10-2024 10:47-0400 Body height 200.7 cm Saurabh Riddle MD Work Phone: [facility] 08-10-2024 10:47-0400 Body mass index (BMI) [Ratio] 28.16 kg/m2 Saurabh Riddle MD Work Phone: [facility] 08-10-2024 10:47-0400 Body weight 113.4 kg Saurabh Riddle MD Work Phone: [facility] 08-10-2024 10:47-0400 Diastolic blood pressure 80 mm[Hg] Saurabh Riddle MD Work Phone: [facility] 08-10-2024 10:47-0400 Heart rate 80 /min Saurabh Riddle MD Work Phone: [facility] 08-10-2024 10:47-0400 Systolic blood pressure 115 mm[Hg] Saurabh Riddle MD Work Phone: [facility] 07-12-2024 14:54-0400 Body height 200.7 [address] P[address] 1 [facility] 07-12-2024 14:54-0400 Body mass index (BMI) [Ratio] 28.16 kg/m2 Pst 1 [facility] 07-12-2024 14:54-0400 Body temperature 97.5 [degF] Pst [address] [place] [address] 07-12-2024 14:54-0400 Body weight 113.4 kg Pst 1 [facility] 07-12-2024 14:54-0400 Diastolic blood pressure 80 mm[Hg] Pst 1 [facility] 07-12-2024 14:54-0400 Heart rate 78 /min Pst 1 [facility] 07-12-2024 14:54-0400 Respiratory rate 14 /min Pst [address] [place] [address] 07-12-2024 14:54-0400 SaO2% (BldA) [Mass fraction] 100 % Pst 1 [facility] 07-12-2024 14:54-0400 Systolic blood pressure 121 mm[Hg] Pst 1 [facility] 06-15-2024 07:57-0400 Body mass index (BMI) [Ratio] 28.16 kg/m2 Saurabh Riddle MD Work Phone: [facility] 06-15-2024 07:57-0400 Body weight 113.4 kg Saurabh Riddle MD Work Phone: [facility] 06-15-2024 07:57-0400 Diastolic blood pressure 79 mm[Hg] Saurabh Riddle MD Work Phone: [facility] 06-15-2024 07:57-0400 Heart rate 77 /min Saurabh Riddle MD Work Phone: [facility] 06-15-2024 07:57-0400 Systolic blood pressure 112 mm[Hg] Saurabh Riddle MD Work Phone: [facility] 01-11-2024 14:45-0500 Body height 200.7 cm Saurabh Riddle MD Work Phone: [facility] 01-11-2024 14:45-0500 Diastolic blood pressure 73 mm[Hg] Saurabh Riddle MD Work Phone: [facility] 01-11-2024 14:45-0500 Heart rate 79 /min Saurabh Riddle MD Work Phone: [facility] 01-11-2024 14:45-0500 Systolic blood pressure 108 mm[Hg] Saurabh Riddle MD Work Phone: [facility] 12-09-2023 10:04-0400 Body height 200.7 cm Saurabh Riddle MD Work Phone: [facility] 12-09-2023 10:04-0400 Body mass index (BMI) [Ratio] 28.16 kg/m2 Saurabh Riddle MD Work Phone: [facility] 12-09-2023 10:04-0400 Body weight 113.4 kg Saurabh Riddle MD Work Phone: [facility] 12-09-2023 10:04-0400 Diastolic blood pressure 84 mm[Hg] Saurabh Riddle MD Work Phone: [facility] 12-09-2023 10:04-0400 Heart rate 80 /min Saurabh Riddle MD Work Phone: [facility] 12-09-2023 10:04-0400 Systolic blood pressure 125 mm[Hg] Saurabh Riddle MD Work Phone: [facility] Encounters Encounter Date Encounter Type Care Provider Facility Start: 12-13-2024 ambulatory Linda Cazares Facility: [facility] Start: 11-20-2024 Encounter for genera l adult medical examination without abnormal findings Jaquan Flores [facility] Start: 11-09-2024 End: 11-09-[address] Linda Cazares DO Work Phone: -Laboratory Start: 11-09-2024 End: 11-09-2024 Patient encounter procedure Jaquan Flores DO -Laboratory Work Phone: Start: 11-09-2024 End: 11-09-2024 Patient encounter procedure Jaquan Flores DO -[facility] Work Phone: Start: 11-09-2024 End: 11-09-[address] Linda Cazares DO Work Phone: -[facility] Start: 11-09-2024 End: 11-09-2024 ambulatory iLnda Cazares Facility:[facility] Start: 08-10-2024 End: 08-10-2024 Patient encounter procedure Saurabh Riddle MD Work Phone: [facility] Comment on above: Anal fissure (Primar y Dx) Start: 08-10-2024 End: 08-10-2024 ambulatory SAURABH RIDDLE Facility:[facility] Start: 07-19-2024 End: 07-19-2024 ambulatory SAURABH RIDDLE Facility:[facility] Start: 07-12-2024 End: 07-12-2024 Admission to establishment [facility] 1 Pre Surgical Testing Start: 07-12-2024 End: 07-12-2024 ambulatory LINDA CAZARES Pre Surgical Testing Comment on above: Pre-op examination ( Primary Dx); Anal fistula Start: 07-12-2024 End: 07-12-2024 Preprocedural examination done Pst 1 [facility] Work Phone: Start: 07-12-2024 Encounter for other preprocedural examination SAURABH RIDDLE [facility] Start: 06-15-2024 End: 06-15-2024 Patient encounter procedure Saurabh Riddle MD Work Phone: [facility] Comment on above: Anal fistula (Primar y Dx) Start: 06-15-2024 End: 06-15-2024 ambulatory SAURABH RIDDLE Facility:[facility] Start: 05-23-2024 End: 05-23-2024 Telephone encounter Saurabh Riddle MD Work Phone: [facility] Comment on above: Appointment Start: 01-11-2024 End: 01-11-2024 Patient encounter procedure Saurabh Riddle MD Work Phone: [facility] Comment on above: Anal fistula (Primar y Dx) Start: 01-11-2024 End: 01-11-2024 ambulatory SAURABH RIDDLE Facility:[facility] Start: 12-27-2023 End: 12-27-2023 ambulatory SAURABHSANAZ DIAKAMRAN Facility:[facility] Start: 12-12-2023 End: 12-12-2023 Telephone encounter aSurabh Riddle MD Work Phone: [facility] Comment on above: Schedule Procedure Procedure (EUA, FIST ULOTOMY VS SETON/) Anal fistula (Primar y Dx) Start: 12-09-2023 End: 12-09-2023 Patient encounter procedure Saurabh Riddle MD Work Phone: [facility] Comment on above: Anal fistula (Primar y Dx) Start: 12-09-2023 End: 12-09-2023 ambulatory SAURABH RIDDLE Facility:[facility] Start: 02-15-2023 End: 02-15-2023 ambulatory [facility] Work Phone: Start: 02-15-2023 End: 02-15-2023 Patient encounter procedure [facility]-Everardo, Twila Chopra [facility] Procedures Date Procedure Procedure Detail Performing Clinician Start: 11-09-[address] Frances Cazares DO Work Phone: Comment on above: *Additional results available. Contact laboratory/see report*The atypical pANCA pattern has been observed in asignificant percentage of patients with ulcerative colitis,primary sclerosing cholangitis and autoimmune hepatitis.Performed at: - [facility] [address] [id number] Director: Derrick Duran PhD, Phone: [phone] at: - [facility] [address] [id number] Director: Luis Daniel Castillo MD, Phone: [phone] Start: 11-09-2024 Antibody to centrome re measurement [...] INFCE on 11/13/24:0107 AMENDED REPORT 11/13/24 0107 ANTI-LEI previously reported as: Test not performed Start: [...] Equivo kalani: 45-50 Positive: >50 Start: 11-09-2024 [employer] WORK[employer] HELPER antibody measurement Dr. Linda Cazares DO Work Phone: Comment on above: Previous reported re sult: TNP AIEdited by: JACKIE on 11/13/24:0107 AMENDED REPORT 11/13/24 010 [employer] WORK[employer] Ab previously reported as: Test not performed Start: 11-09-2024 Radha gomez DO Work Phone: Plan of Treatment Date Care Activity Detail Author Start: 11-09-2024 Measurement of occul t blood in stool specimen using immunoassay [facility] Start: 11-09-2024 Protein measurement [facility] Start: 11-09-2024 [facility] Start: 10-29-2024 Influenza vaccination Influenz a Vaccine (Season Ended) [facility] Start: 08-10-2024 End: 08-10-2024 Patient encounter procedure 08/10/2024 11:00 AM EDT Office Visit [facility] [address] [place], [place] [address] Saurabh Riddle MD [address] [place], [place] [id number] Post Op EUA [facility] Comment on above: Post Op EUA Start: 07-19-2024 End: 07-19-2024 Admission to same day surgery center 07/19/2024 7:30 AM EDT - 07/19/2024 8:35 AM EDT Surgery [facility] [address] [place] [address] Saurabh Riddle MD [address] [place], [place] [id number] EXAM UNDER ANESTHESIA RECTAL [facility] Comment on above: EXAM UNDER ANESTHESI A RECTAL Start: 07-19-2024 End: 07-19-2024 Anrct xm surg req anes general spi/edrl dx EXAM UNDER ANESTHESIA RECTAL Anal fistula 07/19/2024 7:30 AM EDT [facility] Start: 07-19-2024 Subsequent hospital visit by physician 07/19/2024 7:30 AM EDT Hospital Encounter [facility] [address] [place] [address] Saurabh Riddle MD [address] [place], [place] [phone] Anal fistula [K60.30] [facility] Comment on above: Anal fistula [K60.30 ] Start: 07-19-2024 End: 07-19-2024 Tx anal fstl trans/supra/xtrasphnctrc incl seton ANAL FISTULOTOMY TRANSSPHINCTERIC W/ SETON DRAIN Anal fistula 07/19/2024 7:30 AM EDT [facility] Start: 06-15-2024 End: 06-15-2024 Patient encounter procedure 06/15/2024 8:00 AM EDT Office Visit [facility] [address] [place], [place] [address] Saurabh Riddle MD [address] [place], [place] [phone] Follow back up for some bleeding in stool [facility] Comment on above: Follow back up for s ome bleeding in stool Start: 01-11-2024 End: 01-11-2024 Patient encounter procedure 01/11/2024 3:00 PM EST Office Visit [facility] [address] [facility] [address] Floor [place], [place] [phone] Saurabh Riddle MD [address] [place], [place] [phone] Post Op EUA [facility] Comment on above: Post Op EUA Start: 12-27-2023 End: 12-27-2023 Admission to same day surgery center 12/27/2023 11:45 AM EDT - 12/27/2023 2:00 PM EDT Surgery [facility] [address] [place] [address] Saurabh Riddle MD [address] [place], [place] [id number] EXAM UNDER ANESTHESIA RECTAL [facility] Comment on above: EXAM UNDER ANESTHESI A RECTAL Start: 12-27-2023 End: 12-27-2023 Anrct xm surg req anes general spi/edrl dx EXAM UNDER ANESTHESIA RECTAL Anal fistula 12/27/2023 11:45 AM EDT [facility] Start: 12-27-2023 Subsequent hospital visit by physician 12/27/2023 11:45 AM EDT Hospital Encounter [facility] [address] [place] [address] Saurabh Riddle MD [address] [place] [address] Anal fistula [K60.30] [facility] Comment on above: Anal fistula [K60.30 ] Start: 12-27-2023 End: 12-27-2023 Tx anal fstl trans/supra/xtrasphnctrc incl seton ANAL FISTULOTOMY TRANSSPHINCTERIC W/ SETON DRAIN Anal fistula 12/27/2023 11:45 AM EDT [facility] Start: 10-30-2023 Covid-19 Vaccine ( season) Covid-19 Vaccine ( season) [facility] Start: 10-30-2023 Influenza vaccination Influenza Vacc ine (#1) [facility] Start: 2018 Lipid panel Lipid Screening [facility] Start: 2002 Hepatitis B Vaccine (1 of 3 - 19+ 3-dose series) Hepatitis B Vaccine (1 of 3 - 19+ 3-dose series) [facility] Start: 2002 Urine microalbumin profile DTaP,Tdap,Td Vaccine (1 - Tdap) [facility] Start: 2001 Anxiety Screening Anxiety Screening [facility] Start: 2001 [facility]: 2001 Hepatitis C screening Hepatitis C Sc [facility] Start: 2001 HIV screening HIV Screening [facility] C reactive protein [Mass/volume] in Serum or Plasma [facility] CBC W Auto Different ial panel - Blood [facility] Celiac disease screen [facility] Clostridioides diffi cile DNA [Presence] in Unspecified specimen by GENESIS with probe detection [facility] Comprehensive metabo lic 2000 panel - Serum or Plasma [facility] Elastase.pancreatic [Presence] in Stool [facility] Erythrocyte sedimentation rate [facility] Fat [Presence] in Stool [facility] H&P for surgery H&P FOR SURGERY Procedures Routine Anal fistula Ordered: 12/12/2023 [facility] Work Phone: Comment on above: Ordered: 12/12/2023 Immunoglobulin measurement [facility] In-vitro immunologic test [facility] Lactate dehydrogenas e measurement [facility] Lactoferrin [Presenc e] in Stool by Immunoassay [facility] Nucleic acid assay [facility] Thyroid stimulating hormone measurement [facility] Immunizations Immunization Date Immunization Notes Care Provider [facility] 12-27-2013 influenza, seasonal, injectable Saurabh Riddle MD Work Phone: [facility] 12-27-2013 influenza virus vaccine, unspecified formulation Saurabh Riddle MD Work Phone: [facility] Payers Date Payer Category Payer Unknown [id number] 2024 Self-pay [id number] 2023 Private Health Insurance [facility] CHO[facility]AN GENERIC [id number] 2023 Unknown [id number] 2023 Unknown [id number] Unknown [id number] Unknown [id number] Unknown [id number] Unknown [id number] Unknown [id number] Social History Date Type Detail Facility Start: 02-15-2019 Tobacco smoking stat us HIIS Unknown if ever smoked [facility] Start: 02-15-2019 None [facility] Start: 02-15-2019 Spouse/ Signif icant Other;With Family [facility] Start: 02-15-2019 Non-smoker [facility] Start: 1985 Sex Assigned At Male [facility] Start: 08-06-2023 End: 12-09-2023 Tobacco smoking status NHIS Never smoked tobacco [facility] Start: 12-09-2023 Tobacco use and exposure Smokeless tobacco non-user [facility] Start: 12-09-2023 End: 07-19-2024 Alcoholic beverage intake Current non-drinker of alcohol (finding) [facility] Start: 12-09-2023 End: 07-19-2024 History of Social function [facility] Start: 12-09-2023 End: 07-19-2024 Tobacco use panel [facility] National Score (1-100), lower number is lower risk 33 [facility] Start: 1985 Sex assigned at Not on file [facility] Start: 07-11-2024 Gender identity Identifies as male gender (finding) [facility] Start: 07-11-2024 Sexual orientation Heterosexual (fin chichi) [facility] NEGATED: Highlighted rowStart: NINF History of tobacco use Passive smoker [facility] Clinical Notes 12-09-2023 to 11-09-2024 Note Date & Type Note Facility 11-09-2024 Evaluation note Diagnosis Onset Date Resolution Diarrhea acute October 7:29am [facility] Work Phone: [phone]) 446-341106-13-2025 NoteHNO ID: [id number] Author: SAURABH RIDDLE MD Service: ? Author Type: Physician Type: Progress Notes Filed: 08/10/2024 11:52 Note Text: Saurabh Riddle M.D. Colon AND Rectal Surgery [address] [facility], [address] [place] [address] SUBJECTIVE Libby Woods is a 39 year [...] This office note has been created using APROOFED, a speech recognition software program, and may contain errors including punctuation, grammar, spelling, gender, and inappropriate words or phrases that pertain to the sytem.[facility]06-13-2025 History of Present illness Narrative* Saurabh Riddle MD - 08/10/2024 10:46 AM EDT Images from the original note were not included. Saurabh Riddle M.D. Colon & Rectal Surgery [address] [facility], [address] [place] [phone] SUBJECTIVE Libby Woods is a 39 year [...] This office note has been created using APROOFED, a speech recognition software program, and may contain errors including punctuation, grammar, spelling, gender, and inappropriate words or phrases that pertain to the sytem. documented in this encounterUniversity Hospitals Parma Medical Center05-16-2025 NoteHNO ID: [id number] Author: ZAN LOPES APRN.BITA Service: ? Author Type: Nurse Practitioner Type: Progress Notes Filed: 07/13/2024 07:24 Note Text: Summary: PAT Reviewed patient's HANDP, no further pre-op concerns at this time, and patient has no pending optimizations.[facility]05-15-2025 History and physical note* Yaneth Mattson APRN.REMELTER - 07/12/2024 3:00 PM EDT Images from [...] 39 year old male who presents to [facility] for the above procedure. Patient reports a [...] fibrillation, CAD, chest pain, DVT/PE and recent NH. GI: Negative for: abdominal pain, dysphagia, hepatitis, [...] or any previous visit (from the past 67886 hours). PATIENT DENIES Blood thinners The Following [...] which included preparing to see the patient, [id number] patient care, completing clinical documentation, obtaining and/or reviewing separately obtained history, performing a medically appropriate examination, and counseling and educating the patient/family/caregiver. SIGNATURE: Yaneth Mattson APRN.CNP PATIENT NAME: Libby Woods DATE: July 12, 2024 TIME: 3:00 PM PAGER/CONTACT #: [facility]05-15-2025 History and physical note* Yaneth Mattson APRN.CNP [...] 39 year old male who presents to [facility] for the above procedure. Patient reports a [...] fibrillation, CAD, chest pain, DVT/PE and recent NH. GI: Negative for: abdominal pain, dysphagia, hepatitis, [...] or any previous visit (from the past 54657 hours). PATIENT DENIES Blood thinners The Following Tests/Procedures Have Been Initiated: No orders per surgeon in [facility] Assessment/Plan Diagnosis: Anal fistula [K60.30] PLAN Planned Procedure: Procedure(s): EXAM UNDER ANESTHESIA RECTAL (N/A) FISTULOTOMY VS SETON (N/A) Instructions Given to Patient: Instructions located in the after visit summary. Patient given verbal and written preop instructions and voices comprehension and compliance. I spent a total of 40 minutes on the date of the service which included preparing to see the patient, [id number] patient care, completing clinical documentation, obtaining and/or reviewing separately obtained history, performing a medically appropriate examination, and counseling and educating the patient/family/caregiver. SIGNATURE: Yaneth Mattson APRN.CNP PATIENT NAME: Libby Woods DATE: July 12, 2024 TIME: 3:00 PM PAGER/CONTACT #: documented in this encounterUniversity Hospitals Parma Medical Center05-15-2025 Instructions* Patient Instructions* Yaneth Mattson APRN.REMELTER - 07/12/2024 9:46 AM EDT PATIENT PREOPERATIVE INSTRUCTIONS Your surgeon has scheduled for your procedure at this surgery center: [facility]: [phone], [address] [facility] [address] [place], [place] [phone] Please read below carefully for your personalized [...] surgery. - YOU MUST HAVE A RESPONSIBLE BRICK GRADER TAKE YOU HOME. A TRANSIT WORKER, CAB OR UBER BRICK GRADER CANNOT BE MADEA RESPONSIBLE BRICK GRADER. - If you are undergoing an outpatient [...] Advance Directive, please fax a copy to [phone] or Sarah BONE at [phone] or email to for it to be [...] Yaneth Mattson APRN.CNP 07/12/24 documented in this encounterUniversity Hospitals Parma Medical Center04-18-2025 NoteHNO ID: [id number] Author: SAURABH RIDDLE MD Service: ? Author Type: Physician Type: Progress Notes Filed: 06/15/2024 09:31 Note Text: Saurabh Riddle M.D. Colon AND Rectal Surgery [address] [facility], [address] [place] [id number] SUBJECTIVE Libby Woods is a 39 year [...] although I think we (more content not included)...[facility] [id number] History of Present illness Narrative* Saurabh Riddle MD - 06/15/2024 7:56 AM EDT Images from the original note were not included. Saurabh Riddle M.D. Colon & Rectal Surgery [address] [facility], [address] [place] [address] SUBJECTIVE Libby Woods is a 39 year [...] time. INFORMED CONSENT Libby Woods Medical Record: [id number] Date: 06/15/2024 Procedure: Exam under anesthesia with [...] Woods's consent. Saurabh Riddle MD Dept of [facility] Follow up: No follow-ups on file. Saurabh Riddle M.D. Please Note: This office note has been created using APROOFED, a speech recognition software program, and may contain errors including punctuation, grammar, spelling, gender, and inappropriate words or phrases that pertain to the sytem. documented in this encounterUniversity Hospitals Parma Medical Center03-26-2025 Telephone encounter Note * Telephone Encounter - Marni Bolanos - 05/23/2024 9:24 AM EDT The patient has been scheduled for a office visit for 06/15/24 with . Marni Bolanos [facility]03-26-2025 Miscellaneous Notes* Telephone Encounter - Marni Bolanos - 05/23/2024 9:24 AM EDT The patient has been scheduled for a office visit for 06/15/24 with . Marni Bolanos documented in this encounterUniversity Hospitals Parma Medical Center11-13-2024 NoteHNO ID: [id number] Author: SAURABH RIDDLE MD Service: ? Author Type: Physician Type: Progress Notes Filed: 01/11/2024 15:24 Note Text: Saurabh Riddle M.D. Colon AND Rectal Surgery [address] [facility], [address] [place] [address] SUBJECTIVE Libby Woods is a 39 year [...] This office note has been created using APROOFED, a speech recognition software program, and may contain errors including punctuation, grammar, spelling, gender, and inappropriate words or phrases that pertain to the sytem.[facility]11-13-2024 History of Present illness Narrative* Saurabh Riddle MD - 01/11/2024 2:42 PM EST Saurabh Riddle M.D. Colon & Rectal Surgery [address] [facility], [address] [place] [id number] SUBJECTIVE Libby Woods is a 39 year [...] This office note has been created using APROOFED, a speech recognition software program, and may contain errors including punctuation, grammar, spelling, gender, and inappropriate words or phrases that pertain to the sytem. documented in this encounterUniversity Hospitals Parma Medical Center10-14-2024 Telephone encounter Note * Telephone Encounter - Marni Bolanos - 12/12/2023 3:36 PM EDT Surgery Checklist Type: EUA, FISTULOTOMY VS SETON Admission Type: outpatient Anesthesia: MAC Date: 12/27/23 Arrival Time: 9:45 AM Surgery Time: 11:45 AM Location: [facility] Prep Marni Bolanos [facility]10-14-2024 Miscellaneous Notes* Telephone Encounter - Marni Bolanos - 12/12/2023 3:36 PM EDT Surgery Checklist Type: EUA, FISTULOTOMY VS SETON Admission Type: outpatient Anesthesia: MAC Date: 12/27/23 Arrival Time: 9:45 AM Surgery Time: 11:45 AM Location: [facility] Prep Marni Bolanos documented in this encounterUniversity Hospitals Parma Medical Center10-14-2024 Telephone encounter Note * Telephone Encounter - Marni Bolanos - 12/12/2023 1:58 PM EDT Called the patient and left a voice message asking the patient to call the office back to schedule his Procedure. Marni Bolanos [facility]10-14-2024 Miscellaneous Notes* Telephone Encounter - Marni Bolanos - 12/12/2023 1:58 PM EDT Called the patient and left a voice message asking the patient to call the office back to schedule his Procedure. Marni Olmos Marion documented in this encounterUniversity Hospitals Parma Medical Center10-11-2024 Instructions* Patient Instructions* Saurabh Riddle MD - [...] fistulas respond well to surgical treatment. References [place] [employer]. Anal Abscess/Fistula Accessed 03/19/2014. [employer] and Digestive and Kidney Diseases. Anatomic Problems of the Lower GITract Accessed 03/19/2014. Copyright 9719-2255 The [facility]. All rights reserved documented in this encounterUniversity Hospitals Parma Medical Center10-11-2024 NoteHNO ID: [id number] Author: SAURABH RIDDLE MD Service: ? Author Type: Physician Type: Progress Notes Filed: 12/09/2023 11:01 Note Text: Saurabh Riddle M.D. Colon AND Rectal Surgery [address] [facility], [address] [place] [address] DOMINGA Woods is a 38 year old [...] convenience. INFORMED CONSENT Libby Woods Medical Record: [id number] Date: 12/09/2023 Procedure: Exam under anesthesia with fistulotomy versus seton The risks, benefits and anticipated (more content not included)...[facility]10-11-2024 History of Present illness Narrative* Saurabh Riddle MD - 12/09/2023 10:03 AM EDT Images from the original note were not included. Saurabh Riddle M.D. Colon & Rectal Surgery [address] [facility], [address] [place] [address] [facility] Libby Woods is a 38 year old [...] convenience. INFORMED CONSENT Libby Woods Medical Record: [id number] Date: 12/09/2023 Procedure: Exam under anesthesia with [...] Woods's consent. Saurabh Riddle MD Dept of [facility] Follow up: No follow-ups on file. Saurabh Riddle M.D. Please Note: This office note has been created using APROOFED, a speech recognition software program, and may contain errors including punctuation, grammar, spelling, gender, and inappropriate words or phrases that pertain to the sytem. [facility] noteNo assessment information availableWDoctors Hospital Work Phone: Evaluation note* Diagnosis Anal fistula- Primary documented in this encounter [facility] note* Diagnosis Anal fistula- Primary Anal fistula documented in this encounter [facility] note* Diagnosis Anal fistula- Primary documented in this encounter [facility] note* Diagnosis Pre-op examination- Primary Preoperative examination, unspecified Anal fistula Anal fistula * Assessment & Plan Note - Yaneth Mattson APRN.CNP - 07/12/2024 9:48 AM EDT Associated Problem(s): Anal fistula Surgery scheduled 07/19/24 * Assessment & Plan Note - Yaneth Mattosn APRN.CNP - 07/12/2024 9:48 AM EDT Associated Problem(s): Pre-op examination Medical conditions which may affect the perioperative course were address in today's visit. documented in this encounter [facility] note* Diagnosis Pre-op examination- Primary Preoperative examination, unspecified Anal fistula Anal fissure- Primary documented in this encounter [facility] note* Diagnosis Onset Date Resolution Status Admit Date Diarrhea acute October 7:29am [facility] Work Phone: Reason for referral (narrative)No reason for referral information availableFairchild Medical Center Work Phone: Family History Relationship Condition Age at Onset Recorded Date/T myra father Cardiac disease Unknown Diabetes mellitus Unknown Hypertension Unknown Advance Directives Advance Directive Response Recorded Date/ Time Living Will No February 15 019 1:07am Power of Riding Coach No February 15, 2019 1:07am Summary Purpose [...] Primary Care Provider, Attendin g Provider Active Canary Raiser Relationship Specialty Start Date End Date Linda Cazares DO PCP - General Family Medicine 10/11/14 Canary Raiser Relationship Specialty Start Date End Date Linda Cazares DO PCP - General Family Medicine 10/11/14 Canary Raiser Relationship Specialty Start Date End Date Linda Cazares DO PCP - General Family Medicine 10/11/14 Canary Raiser Relationship Specialty Start Date End Date Linda Cazares DO PCP - General Family Medicine 10/11/14 Canary Raiser Relationship Specialty Start Date End Date Linda Cazares DO PCP - General Family Medicine 10/11/14 Canary Raiser Relationship Specialty Start Date End Date Linda [...] or prosecute any alcohol or drug abuse patient.[facility] CenterIn the event this information is protected by the Federal Confidentiality of Alcohol and Drug Abuse Patient Records regulations: The Federal rules restrict any use of the information to criminally investigate or prosecute any alcohol or drug abuse patient.[facility] CenterIn the event this information is protected by the Federal Confidentiality of Alcohol and Drug Abuse Patient Records regulations: The Federal rules restrict any use of the information to criminally investigate or prosecute any alcohol or drug abuse patient.[facility] CenterIn the event this information is protected by the Federal Confidentiality of Alcohol and Drug Abuse Patient Records regulations: The Federal rules restrict any use of the information to criminally investigate or prosecute any alcohol or drug abuse patient.[facility] CenterIn the event this information is protected by the Federal Confidentiality of Alcohol and Drug Abuse Patient Records regulations: The Federal rules restrict any use of the information to criminally investigate or prosecute any alcohol or drug abuse patient.[facility] CenterIn the event this information is protected by the Federal Confidentiality of Alcohol and Drug Abuse Patient Records regulations: The Federal rules restrict any use of the information to criminally investigate or prosecute any alcohol or drug abuse patient.[facility] CenterIn the event this information is protected by the Federal Confidentiality of Alcohol and Drug Abuse Patient Records regulations: The Federal rules restrict any use of the information to criminally investigate or prosecute any alcohol or drug abuse patient.[facility] CenterIn the event this information is protected by the Federal Confidentiality of Alcohol and Drug Abuse Patient Records regulations: The Federal rules restrict any use of the information to criminally investigate or prosecute any alcohol or drug abuse patient.[facility] CenterIn the event this information is protected by the Federal Confidentiality of Alcohol and Drug Abuse Patient Records regulations: The Federal rules restrict any use of the information to criminally investigate or prosecute any alcohol or drug abuse patient.[facility] Reason for Visit (unrecogniz ed section and [...] section and content) DATE CREATED AUTHOR 08/16/2024 [facility] DATE CREATED AUTHOR AUTHOR'S ORGANIZ ATION 11/21/2024 [facility] FOR RECORDS PERTAINING TO PATIENTS WHO [...] BE BASED ON THE PRIMARY CLINICAL RECORDS. [facility]. provides no warranty or guarantee of the accuracy or completeness of information in this document.
[2024-12-04 13:08] LABS: Pancreatic Elastase, Fecal > 800 (>200)
[2024-12-04 15:08] LABS: Calprotectin, Stool 12 ug/g (0-120); Fats, Neutral Normal (.); Fats, Total Increased (.)
== END | disposition home or self-care (01) ==
LOC: LABSPEC 08:28
PROVIDERS: PCP Family Medicine; Referring Provider Internal Medicine Gastroenterology; Visit Provider Internal Medicine Gastroenterology
DX: K58.9 Irritable bowel syndrome, unspecified (principal); R19.7 Diarrhea, unspecified
CPT/HCPCS: 82274; 82653; 82705; 83630; 83993; 87177; 87209; 87329; 87493; 87506

== ENCOUNTER 2024-12-13 07:39 | Day surgery (SDC) | payer OTHER, SELFPAY ==
[2024-12-13] VITALS (7 sets, daily range): BP systolic 103–127; BP diastolic 78–95; PULSE 75–91; RESP 16–18; TEMP 36.1–36.4; O2SAT 95–97; BMI 28.5
[2024-12-13] MEDS: Lactated Ringers 1,000 ML 15 ML IV (07:59)
== END 2024-12-13 10:25 | disposition home or self-care (01) ==
LOC: EN 07:40 → AC 07:41
PROVIDERS: PCP Family Medicine; Referring Provider Family Medicine; Visit Provider Internal Medicine Gastroenterology
PROC: 0DJD8ZZ Inspection of Lower Intestinal Tract, Via Natural or Artificial Opening Endoscopic (ICD-10-PCS; CPT 45378; principal; 2024-12-13 08:40)
DX: K50.90 Crohn's disease, unspecified, without complications (principal); K21.00 Gastro-esophageal reflux disease with esophagitis, without bleeding; K29.80 Duodenitis without bleeding; E78.00 Pure hypercholesterolemia, unspecified; K29.70 Gastritis, unspecified, without bleeding
CPT/HCPCS: 44361; 45380; 88305; J2405